=== PATIENT | female | born 1945 | race Caucasian/White ===

== ENCOUNTER 2019-04-15 13:36 | Inpatient (IN) | payer MEDICARE ==
[~2019-04-15] VITALS: Ht 167.6 cm; Wt 56.7 kg
[2019-04-15] MEDS: ALBUTEROL SULF 0.083% NEB SOLN 3 ML NEB NEB SCH ×2 (00:45→19:00)
[2019-04-15] MEDS ORDERED: ALBUTEROL/IPRATROPIUM 3 ML NEB NEB ONE (14:15)
[2019-04-15] MEDS ORDERED: ALBUTEROL/IPRATROPIUM 3 ML NEB NEB PRN (14:15)
[2019-04-15 14:22] LABS: BASOPHILS # (AUTO) 0.1 (0.0-0.1); BASOPHILS % 0.2 % (0.0-1.0); HEMATOCRIT 33.1 % (34.2-44.1); HEMOGLOBIN 11.2 g/dL (12.0-16.0); LYMPHOCYTES # (AUTO) 2.5 (1.0-3.2); MEAN CORPUSCULAR HEMOGLOBIN 30.4 pg (28-32); MEAN CORPUSCULAR HGB CONC 33.8 g/dL (31-35); MEAN CORPUSCULAR VOLUME 89.7 fL (81-99); MONOCYTES # (AUTO) 1.6 (0.2-0.8); MONOCYTES % 6.6 % (4.4-11.3); NEUTROPHILS # (AUTO) 20.6 (2.1-6.9); NEUTROPHILS % 82.4 % (38.7-80.0); PLATELET COUNT 526 x10e3/uL (140-360); RED BLOOD COUNT 3.69 x10e6/uL (3.6-5.1)
[2019-04-15] MEDS ORDERED: LEVALBUTEROL HCL SOLN NEBU 1.25 MG/3 ML NEB ONE (14:25)
[2019-04-15] MEDS ORDERED: IPRATROPIUM BROMIDE 0.02% 2.5 ML NEB ONE (14:26)
[2019-04-15 14:27] LABS: INR 1.01; PARTIAL THROMBOPLASTIN TIME 39.7 seconds (23.8-35.5); PROTHROMBIN TIME 13.8 seconds (11.9-14.5)
[2019-04-15] MEDS ORDERED: IPRATROPIUM BROMIDE 0.02% 2.5 ML NEB NEB NR (14:30)
[2019-04-15 14:35] LABS: ALANINE AMINOTRANSFERASE 12 IU/L (0-55); ALBUMIN 2.2 g/dL (3.5-5.0); ALBUMIN/GLOBULIN RATIO 0.4 (0.8-2.0); ALKALINE PHOSPHATASE 117 IU/L (40-150); ANION GAP 12.8 mmol/L (8-16); BLOOD UREA NITROGEN 10 mg/dL (7-26); BUN/CREATININE RATIO 15 (6-25); CALCIUM 10.1 mg/dL (8.4-10.2); CARBON DIOXIDE 30 mmol/L (22-29); CHLORIDE 94 mmol/L (98-107); CREATINE KINASE 94 IU/L (29-168); CREATININE, SERUM 0.65 mg/dL (0.57-1.11); EST GLOMERULAR FILTRATION RATE > 60 ML/MIN (60-); GLUCOSE 125 mg/dL (74-118); POTASSIUM 3.8 mmol/L (3.5-5.1); SODIUM 133 mmol/L (136-145)
[2019-04-15] MEDS ORDERED: LEVALBUTEROL HCL SOLN NEBU 0.63 MG/3 ML NEB INH ONE (15:00)
--- NOTE | 2019-04-15 15:52 | Diagnostic Imaging Report ---
EXAMINATION: CHEST SINGLE (PORTABLE) INDICATION: Shortness of breath. COMPARISON: None FINDINGS: TUBES and LINES: None. LUNGS/PLEURA Lungs are mildly hyperinflated on left. There are large pleural based opacities on the right. Moderate right pleural effusion versus pleural thickening. There are interstitial opacities on the left. Patchy opacities in left lower lung. HEART AND MEDIASTINUM: The cardiomediastinal silhouette is unremarkable. There are atherosclerotic calcifications within the aorta. BONES AND SOFT TISSUES: No acute osseous abnormality. Bilateral breast implants. UPPER ABDOMEN: No free air under the diaphragm. IMPRESSION: Large right pleural-based opacities. This finding may be postsurgical, and correlation with history and prior imaging would be helpful. Possible moderate right pleural effusion. Chest CT is suggested for further evaluation. Interstitial and patchy opacities in the left lower lung may represent asymmetric edema or pneumonia. Signed by: Dr. Javier Segura MD on 04/15/2019 3:49 PM
[2019-04-15 16:09] LABS: ABG HCO3 28 mmol/L (23-28); ABG PCO2 40 mmHg (41-51); ABG PH 7.45 (7.31-7.41); ABG PO2 85 mmHg (80-105)
[2019-04-15] MEDS ORDERED: SODIUM CHLORIDE 0.9% 1000ML 1,000 ML IV ONE (16:45)
[2019-04-15] MEDS: CEFTAROLINE FOSAMIL ACETATE 600 MG in SODIUM CHLORIDE 0.9% 250ML 250 ML IV SCH (17:15)
[2019-04-15] MEDS: SODIUM CHLORIDE 0.9% 1000ML 1,000 ML IV SCH (18:12)
[2019-04-15] MEDS ORDERED: SODIUM CHLORIDE FLUSH 10 ML SYR INJ PRN (18:15)
[2019-04-15] MEDS ORDERED: ASPIRIN 81 MG CHEW TAB PO ONE (18:30)
--- OUTSIDE RECORDS SUMMARY | 2019-04-15 18:30 | XMS REPORT ---
Author Author [facility] Address Unknown Phone Unavailable Care Team Providers Care Gyro Compass Tester Name Role Phone Bel APARICIO Unavailable Unavailable Problems This patient has no known problems. Allergies, Adverse Reactions, Alerts This patient has no known allergies or adverse reactions. Medications This patient has no known medications. Results Test Description Test Time Test Comments Text Results Atomic Results Result Comments CHEST SINGLE (PORTABLE) 2019-04-15 15:42:00 [place] [id number] Patient Name: GRIFFIN WEST MR #: [id number] : 1945 Age/Sex: 74/F Req #: [id number] Adm Physician: Ordered by: RHONA APARICIO MD Report #: [id number] Location: ER Room/Bed: Procedure: [id number] DX/CHEST SINGLE (PORTABLE) Exam Date: 04/15/19 Exam Time: 1450 REPORT STATUS: Signed EXAMINATION: CHEST SINGLE (PORTABLE) IN DICATION: Shortness of breath. COMPARISON: None FINDINGS: TUBES and LINES: None. LUNGS/PLEURA Lungs are mildly hyperinflated on left. There are large pleural based opacities on the right. Moderate right pleural effusion versus pleural thickening. There are interstitial opacities on the left. Patchy opacities in left lower lung. HEART AND MEDIASTINUM: The cardiomediastinal silhouette is unremarkable. There are atherosclerotic calcifications within the aorta. BONES AND SOFT TISSUES: No acute osseous abnormality. Bilateral breast implants. UPPER ABDOMEN: No free air under the diaphragm. IMPRESSION: Large right pleural-based opacities. This finding may be postsurgical, and correlation with history and prior imaging would be helpful. Possible moderate right pleural effusion. Chest CT is suggested for further evaluation. Interstitial and patchy opacities in the left lower lung may represent asymmetric edema or pneumonia. Signed by: Dr. Miriam Salazar MD on 04/15/2019 3:49 PM Dictated By: MIRIAM SALAZAR MD [id number] Transcribed By: LUIS on 04/15/19 1544 COPY TO: RHONA APARICIO MD
[2019-04-15] MEDS ORDERED: LEVALBUTEROL HCL SOLN NEBU 0.63 MG/3 ML NEB INH SCH (19:00)
[2019-04-15] MEDS: ENOXAPARIN SOD INJ 40 MG/0.4 ML SYR SC SCH (19:00)
[2019-04-15] MEDS: LEVALBUTEROL HCL SOLN NEBU 0.63 MG/3 ML NEB INH SCH (19:25)
[2019-04-15 19:33] LABS: BILIRUBIN,URINE NEGATIVE (NEGATIVE); CLARITY,URINE SL CLOUDY (CLEAR); COLOR,URINE YELLOW (YELLOW); KETONES,URINE NEGATIVE (NEGATIVE); LEUKOCYTE ESTERASE ,URINE NEGATIVE (NEGATIVE); NITRITE,URINE NEGATIVE (NEGATIVE); PROTEIN,URINE DIPSTICK 2+ (NEGATIVE); URINE UROBILINOGEN 2 mg/dL (0.2 - 1)
[2019-04-15] MEDS ORDERED: LEVALBUTEROL HCL SOLN NEBU 0.63 MG/3 ML NEB INH PRN (19:45)
[2019-04-15] MEDS ORDERED: VANCOMYCIN 1GM/NS 250 ML 250 ML IV ONE (19:45)
[2019-04-15] MEDS: METHYLPREDNISOLONE SOD SUCC 40 MG/ML VIAL 1ML IV SCH ×2 (19:45→22:25)
[2019-04-15 19:47] LABS: BACTERIA,URINE MODERATE /HPF; MUCUS,URINE MODERATE (RARE)
[2019-04-15] MEDS ORDERED: AZITHROMYCIN 250MG/NS 100 ML 100 ML IV SCH (20:00)
[2019-04-15 21:30] VITALS: BP 98/47
--- NOTE | 2019-04-15 21:32 | Diagnostic Imaging Report ---
CT chest with enhancement CPT code: 99844 INDICATION: Possible empyema TECHNIQUE: 5 mm collimation axial images obtained from the thoracic inlet to the level of the diaphragm following uneventful administration of 100 cc of low osmolar, nonionic intravenous contrast. RADIATION DOSE: Total DLP: 511.38 mGy*cm Estimated effective dose: (DLP x 0.015 x size factor) mSv CTDIvol has been reviewed. It is below the limits set by the Radiation Protocol Committee (RPC). Dose reduction techniques used: Automated exposure control, adjustment of the mAs and/or kVp according to patient size, standardized low-dose protocol, and/or iterative reconstruction technique. Comparison: None. CHEST FINDINGS: Images are motion degraded. Lymph nodes: No enlarged axillary or subclavicular lymph nodes. Upper mediastinal lymph nodes measure up to 9 mm. Right paratracheal lymph node measures 1.2 x 1.2 cm. A precarinal lymph node measures 1.3 cm in short axis. Subcarinal lymph node measures 1.3 cm. A right hilar lymph node measures 2.3 x 1.8 cm.. Thyroid: Visualized portions are normal. Mediastinum: The aorta is tortuous with diffuse calcifications. The descending thoracic aorta measures 3.1 x 3.8 cm. The ascending aorta measures 3.2 cm. Main pulmonary artery measures 2.8 cm. Right pulmonary artery measures 2.7 cm. Left pulmonary artery measures 2.6 cm. There are no filling defects. The mediastinum is shifted to the right. No pericardial effusion. There is a small hiatal hernia. There is mucous in the proximal trachea along the right wall. Lungs: Right Lung: Emphysema. There is atelectasis of the upper lobe. The middle and lower lobes are almost completely collapsed. Large amount of soft tissue in the middle and lower lobe bronchi. Multiple low attenuating foci are in the collapsed lower lobe measuring up to 3.0 cm. These could represent fluid collections or soft tissue nodules. Left Lung: Emphysematous changes and compensatory hyperinflation. There is atelectasis of the posterior basal segment of the lower lobe. No soft tissue mass. Pleura:Loculated right pleural effusion tracks along the lateral chest with enhancement of the visceral and parietal pleura. In largest transverse dimension, it measures 4 cm and extends for 15 cm in craniocaudal dimension. There is no evidence of air. No left pleural effusion. No pneumothorax. ABDOMEN: Visualized portions of the upper abdomen demonstrate no evidence of lymphadenopathy. Tiny low attenuating lesions in the upper pole the left kidney are too small to characterize but are statistically cysts. Bones: No evidence of lytic or blastic lesion. Soft tissues: Calcified bilateral breast prostheses. IMPRESSION: 1. Loculated right pleural effusion with enhancement of the visceral and parietal pleura suggestive of empyema in the appropriate clinical setting. Mediastinal and right hilar lymphadenopathy may be reactive. These should be closely monitored to exclude a malignant process. 2. Near complete atelectasis of the middle and lower lobes with soft tissue occlusion of the middle and lower lobe bronchi. This may represent mucous or endobronchial tumor. Recommend evaluation with bronchoscopy. Low attenuating foci within the atelectatic right lower lobe may be secondary to infection or neoplasm. 3. Emphysema. 4. Small hiatal hernia. 5. Tortuous aorta. Prominent pulmonary arteries suggestive of pulmonary artery hypertension. Signed by: Dr. Reginald Wills MD on 04/15/2019 9:28 PM
[2019-04-15 21:45] VITALS: BP 98/47
[2019-04-15 22:00] VITALS: BP 97/45
[2019-04-15 22:30] LABS: CREATINE KINASE 110 IU/L (29-168)
[2019-04-15] MEDS ORDERED: IOPAMIDOL 370 MG/ML 200 ML INFUS..BTL INJ ONE (22:45)
[2019-04-15] MEDS ORDERED: SODIUM CHLORIDE 0.9% 50ML 50 ML ONE (22:45)
[2019-04-15 23:00] VITALS: BP 95/42
--- NOTE | 2019-04-15 23:10 | NUR ---
Spoke with Dr. Paige regarding patient condition, RR in 40s on bipap without overt anxiety. Orders received to call rapid response and intubate patient. Orders received. Charge nurse, Wendy LEA, informed.
[2019-04-15] MEDS ORDERED: ACETAMINOPHEN 1000 MG/100 ML IV PRN (23:45)
[2019-04-16] VITALS (24 sets, daily range): BP systolic 84–122; BP diastolic 46–70
[2019-04-16] MEDS: IPRATROPIUM BROMIDE 0.02% 2.5 ML NEB NEB SCH ×4 (00:45→20:00)
[2019-04-16] MEDS: LEVALBUTEROL HCL SOLN NEBU 0.63 MG/3 ML NEB INH SCH ×4 (00:45→20:00)
--- NOTE | 2019-04-16 01:03 | NUR ---
Rapid response called at 0103 per MD order for respiratory distress on the bipap. Patient intubated at 0110. Meds given per RR sheet. Family aware of patient situation and orders.
[2019-04-16] MEDS: FENTANYL CITRATE INJ 2,000 MCG in SODIUM CHLORIDE 0.9% 250ML 210 ML IV PRN ×4 (01:10→16:30)
--- NOTE | 2019-04-16 01:38 | Diagnostic Imaging Report ---
EXAMINATION: CHEST XRAY LINE PLACEMENT COMPARISON: CT chest 04/15/2019, chest x-ray 04/15/2019 INDICATION: ^S/P PICC LINE PLACEMENT AND INTUBATION DISCUSSION: Frontal view of the chest obtained at 0121 hours. The patient is slightly rotated. HEART AND MEDIASTINUM: The mediastinum is shifted to the right LINES: Endotracheal tube terminates approximately 3 cm above the michael. Right PICC line terminates in the mediastinum. LUNGS: Loculated right pleural effusion is redemonstrated. The left lung is hyperinflated consistent with emphysema. PLEURA: No evidence of pneumothorax BONES AND SOFT TISSUES: Stable with calcified breast prostheses. IMPRESSION: 1. Endotracheal tube as described above. 2. Right PICC line terminates in the mediastinum. A more exact location cannot be determined due to patient rotation and mediastinal shift. No pneumothorax. 3. Stable loculated right pleural effusion. Signed by: Dr. Reginald Wills MD on 04/16/2019 1:35 AM
[2019-04-16] MEDS ORDERED: METOPROLOL SUCC25 MG PO (02:40)
[2019-04-16] MEDS ORDERED: ALPRAZOLAM1 MG PO (02:40)
[2019-04-16] MEDS ORDERED: CENTRUM SILVER1 EAC3 PO (02:47)
[2019-04-16] MEDS ORDERED: ALBUTEROL0.63 MG/3 INH (02:47)
[2019-04-16] MEDS ORDERED: NAMENDA10 MG PO (02:47)
[2019-04-16] MEDS ORDERED: ASPIR 8181 MG PO (02:47)
[2019-04-16] MEDS ORDERED: ATORVASTATIN CA10 MG PO (02:47)
[2019-04-16] MEDS ORDERED: CILOSTAZOL100 MG PO (02:47)
--- NOTE | 2019-04-16 02:52 | Consultation ---
DATE OF CONSULTATION: 04/15/2019 Pulmonary Consultation REASON FOR THE CONSULT: Respiratory failure. HISTORY OF PRESENT ILLNESS: Ms. Hart is a 74-year-old female with dementia, regular patient of Dr. Jin Navarro, came in with worsening shortness of breath. She has COPD and chronic hypoxic respiratory failure. She is on home oxygen. She has a history of breast implant and hernia surgery. She lives at home with her . She was brought into the ER with complaints of worsening shortness of breath. She had a chest x-ray done on May of 2018, which showed large bullous emphysema in the right upper lobe. She still smokes, have been a smoker for 54 years. She denies any chest pain, nausea, or vomiting. She is on BiPAP right now. REVIEW OF SYSTEMS: GENERAL: Denies any fever or chills. HEAD: Denies any head trauma. ENT: Denies any earache. Review of systems unable to elicit a detailed review of system because of her dementia. PAST MEDICAL HISTORY: Hypertension, COPD, dementia, and history of breast implants. FAMILY AND SOCIAL HISTORY: She is a smoker. She lives with her . She has dementia. PHYSICAL EXAMINATION: VITAL SIGNS: Temperature 101.0, pulse of 120, blood pressure 103/55, respiratory rate of 18, O2 saturation 95% on BiPAP 40%. HEENT: Head is atraumatic and normocephalic. Oral mucosa is dry with poor dentition. NECK: Supple. CHEST: Noted markedly reduced air entry bilaterally. BREAST: She has bilateral breast implants and seems like that the right breast implant is probably displaced. ABDOMEN: Soft and nontender. EXTREMITIES: No pedal edema. NEUROLOGIC: Awake and alert, but incoherent and unable to carry out any conversation. LABORATORY DATA: Sodium 133, potassium 3.8, BUN 10, and creatinine 0.65. White count of 24,000 and hemoglobin 11.2. INR is 1.01. Blood gas; pH of 7.45, pCO2 of 40, and pO2 of 85. ASSESSMENT: Ms. Hart is a 74-year-old female. She presented to the emergency room with worsening shortness of breath likely chronic obstructive pulmonary disease exacerbation versus pneumonia. The mass, which is visible on the chest x-ray is likely the implant. Current problem: 1. Chronic obstructive pulmonary disease exacerbation. 2. Acute on chronic hypoxic respiratory failure. 3. Advanced dementia. 4. Pneumonia. 5. Tachycardia. PLAN: 1. I will continue the patient on BiPAP. BiPAP setting reviewed. 2. Agree with ceftaroline fosamil IV antibiotics for coverage of pneumonia. I will add azithromycin. 3. I will start the patient on IV steroids for COPD exacerbation. 4. Transferred the patient to ICU. 5. Lovenox subcu for DVT prophylaxis. 6. Check UA, urine culture, and blood cultures. 7. Nebulizer treatment q.6 hourly. Detailed discussion was carried out with the patient's and son at bedside about the end of life care and they want everything all measures done for her and she is full code. Critical care time spent 50 minutes. MD CIERA Doan/ÁNGEL /[id number]
[2019-04-16] MEDS ORDERED: AZITHROMYCIN 500MG/NS 250 ML 250 ML ONE (03:07)
[2019-04-16] MEDS: ALBUTEROL SULF 0.083% NEB SOLN 3 ML NEB NEB SCH ×2 (03:17→07:00)
[2019-04-16] MEDS: METHYLPREDNISOLONE SOD SUCC 40 MG/ML VIAL 1ML IV SCH ×3 (05:24→21:34)
[2019-04-16] MEDS: CEFTAROLINE FOSAMIL ACETATE 600 MG in SODIUM CHLORIDE 0.9% 250ML 250 ML IV SCH (05:24)
[2019-04-16] MEDS: SODIUM CHLORIDE 0.9% 1000ML 1,000 ML IV SCH ×2 (05:24→16:51)
[2019-04-16 05:32] LABS: BASOPHILS % 0.1 % (0.0-1.0); HEMATOCRIT 26.8 % (34.2-44.1); HEMOGLOBIN 8.8 g/dL (12.0-16.0); LYMPHOCYTES # (AUTO) 1.2 (1.0-3.2); LYMPHOCYTES % 6.6 % (18.0-39.1); MEAN CORPUSCULAR HEMOGLOBIN 29.7 pg (28-32); MEAN CORPUSCULAR HGB CONC 32.8 g/dL (31-35); MEAN CORPUSCULAR VOLUME 90.5 fL (81-99); MONOCYTES # (AUTO) 0.5 (0.2-0.8); MONOCYTES % 2.8 % (4.4-11.3); NEUTROPHILS # (AUTO) 15.8 (2.1-6.9); NEUTROPHILS % 89.5 % (38.7-80.0); PLATELET COUNT 455 x10e3/uL (140-360); RED BLOOD COUNT 2.96 x10e6/uL (3.6-5.1); RED CELL DISTRIBUTION WIDTH 13.2 % (11.7-14.4)
[2019-04-16 05:36] LABS: ABG PH 7.45 (7.31-7.41)
[2019-04-16 05:37] LABS: ABG HCO3 27 mmol/L (23-28); ABG PCO2 40 mmHg (41-51); ABG PO2 84 mmHg (80-105)
[2019-04-16 05:41] LABS: ABG HCO3 27 mmol/L (23-28); ABG PCO2 39 mmHg (41-51); ABG PH 7.45 (7.31-7.41); ABG PO2 99 mmHg (80-105)
[2019-04-16 05:48] LABS: ANION GAP 12.3 mmol/L (8-16); BLOOD UREA NITROGEN 11 mg/dL (7-26); BUN/CREATININE RATIO 18 (6-25); CALCIUM 8.7 mg/dL (8.4-10.2); CARBON DIOXIDE 26 mmol/L (22-29); CHLORIDE 98 mmol/L (98-107); CREATININE, SERUM 0.62 mg/dL (0.57-1.11); EST GLOMERULAR FILTRATION RATE > 60 ML/MIN (60-); GLUCOSE 130 mg/dL (74-118); POTASSIUM 4.3 mmol/L (3.5-5.1); SODIUM 132 mmol/L (136-145)
[2019-04-16 05:56] LABS: CREATINE KINASE MB 1.9 ng/mL (0-5.0)
--- NOTE | 2019-04-16 06:02 | Diagnostic Imaging Report ---
Abdomen/KUB INDICATION: Tube placement ^OGT PLACEMENT ^[id number] ^0520 COMPARISON: Chest x-ray 0121 hours. FINDINGS: Portable, supine image obtained at 0531 hours. Medical Devices: Enteric tube extends past the diaphragm with the sidehole just past the GE junction. Surgical clips in the upper pelvis. Bowel: Unremarkable bowel gas pattern. No dilated bowel loops. No pneumatosis. Free air: None Calcifications: None. There is excreted contrast in the renal collecting systems from recent CT. Organomegaly: None Lung bases: Loculated right pleural effusion and right lower and middle lobe atelectasis are stable. Hyperinflation of the left lung suggestive of emphysema. Bones: Unremarkable Soft tissues: Stable calcified breast prostheses. IMPRESSION: 1. Enteric tube as described above. Recommend advancement 5 to 10 cm to ensure sidehole placement within the stomach. 2. Visualized portions of the chest are stable. Signed by: Dr. Reginald Wills MD on 04/16/2019 5:59 AM
--- NOTE | 2019-04-16 06:05 | Diagnostic Imaging Report ---
EXAMINATION: CHEST SINGLE (PORTABLE) COMPARISON: Chest x-ray 0121 hours INDICATION: Intubated ^PNEUMONIA ^[id number] ^0520 ^Y DISCUSSION: Frontal view of the chest obtained at 0531 hours. HEART AND MEDIASTINUM: Shifting of the mediastinum to the right is redemonstrated. LINES: Endotracheal tube terminates 4 cm above the michael. Right PICC line terminates in the SVC. Enteric tube extends past the diaphragm. LUNGS: Diffuse hyperinflation of the left lung is stable consistent with emphysema. There is subtotal atelectasis of the right lung, similar to previous exam. PLEURA: Loculated right pleural effusion is stable. No evidence of left pleural effusion. No pneumothorax. BONES AND SOFT TISSUES: No focal osseous lesion. Stable calcified breast prostheses. IMPRESSION: 1. Support devices as described above. 2. Stable loculated right pleural effusion and rightward mediastinal shift. Signed by: Dr. Reginald Wills MD on 04/16/2019 6:02 AM
--- NOTE | 2019-04-16 06:06 | NUR ---
Post intubation ABGs read to Dr. Paige. No new orders or vent setting changes received.
[2019-04-16] MEDS ORDERED: PANTOPRAZOLE INJ 40 MG in SODIUM CHLORIDE 0.9% 50ML 50 ML IV SCH ×4 (07:15)
--- NOTE | 2019-04-16 08:02 | History and Physical ---
REASON FOR ADMISSION: The patient is a 74-year-old female comes in with acute shortness of breath, history of chronic obstructive pulmonary disorder, and also was found to have pneumonia. HISTORY OF PRESENTING ILLNESS: Ms. Ramirez, who is a 74-year-old female with a history of COPD, stop smoking on Mother's Day, until then, she has been smoking about 2-3 cigarettes a day. Prior to this, the patient was one-pack per day. The patient noted that she had a fever and was given Z-Eladio on the . The patient's fever and congestion subsided after one week of treatment. However, the patient did still get weak and also increased shortness of breath and increased dyspnea on exertion. The patient was sent to the emergency room from the clinic and was found to have pneumonia, admitted for the same. PAST MEDICAL HISTORY: History of anxiety, history of hypertension, history of peripheral arterial disease, history of early dementia, history of COPD, and hyperlipidemia. MEDICINES: She takes at home alprazolam 2 mg per day, metoprolol 25 mg per day, cilostazol 100 mg two tablets per day, aspirin 81 mg per, Namenda 10 mg two tablets per day, albuterol inhalations as needed, and atorvastatin 10 mg one tablet every day. The patient's immunizations have been up-to-date. SOCIAL HISTORY: History of smoking as noted and also no EtOH, no IV drug abuse. REVIEW OF SYSTEMS: Negative for chest pain. Positive for shortness of breath. Positive for some nausea. No vomiting. No diarrhea. No constipation. No rectal bleeding. Positive for fever. Positive for weakness and positive for sore throat too. No diplopia. No blurry vision. Positive for memory problems and memory lapses too. FAMILY HISTORY: The patient has significant essential hypertension according to the . ALLERGIES: ACETAMINOPHEN, CODEINE, AND HYDROCODONE. PHYSICAL EXAMINATION: GENERAL: The patient is alert and oriented x3. VITAL SIGNS: Temperature is 97.4, pulse of 101, blood pressure is 90/57, pulse oximeter of 99%, O2 mechanical ventilator. HEENT: Normocephalic, atraumatic. The patient is intubated. CVS: S1, S2. Tachy. ABDOMEN: Nontender and nondistended. LUNGS: Positive for rhonchi in bilateral sides. Positive for bilateral inspiratory wheezing too. EXTREMITIES: No clubbing, no cyanosis, no edema. IMAGING DATA: Initial chest CT shows loculated right pleural effusion with enhancement of the visceral pleura suggestive of empyema, near complete atelectasis of the middle and lower lobes of the soft tissue, occlusion of the middle and lower bronchus, may represent mucus and tracheal tumor. Emphysema and small hiatal hernia. Torturous aorta. LABORATORY VALUES: Initial white count was 24,000, come down to 17,000, hemoglobin of 11.2 down to 8.8, hematocrit of 33.1, back down to 26.8. Left shift still present. Chemistry; sodium of 133, potassium 3.8, BUN of 10, creatinine 0.65, glucose of 125. Troponins have been trended to be negative. ASSESSMENT: 1. Empyema. 2. Chronic obstructive pulmonary disease exacerbation. 3. Hypertension. 4. History of anxiety. 5. History of dementia. 6. Acute sepsis. 7. Encephalopathy secondary to infectious processes. PLAN: To continue the patient on antibiotic. The patient is intubated yesterday last night secondary to respiratory distress for acute respiratory failure. Continue monitoring the patient. The patient has moderate amount of thrombocytosis, leukocytosis, and also left shift with sepsis. Again, IV fluids, hydration, antibiotics, Solu-Medrol for treatment for COPD. Continue to monitor the patient. The patient is critically sick. Pulmonary consult, Dr. Navarro has been done. The patient has been intubated. May need bronchial washing. Will depend on Pulmonology. Further recommendation per clinical course. Deep venous thrombosis prophylaxis also been administered by Lovenox. We will start also on GI prophylaxis and SCDs have been instituted. Discussed the case with , who is the power of finance attorney. Further recommendation per clinical course. MD RICHIE LearyJ/MODL /[id number]
[2019-04-16] MEDS ORDERED: VANCOMYCIN 1GM/NS 250 ML 250 ML IV SCH ×2 (09:30→11:30)
--- NOTE | 2019-04-16 11:05 | NUR ---
REASON FOR ADMISSION: The patient is a 74-year-old female comes in with acute shortness of breath, history of chronic obstructive pulmonary disorder, and also was found to have pneumonia. HISTORY OF PRESENTING ILLNESS: Ms. Ramirez, who is a 74-year-old female with a history of COPD, stop smoking on Mother's Day, until then, she has been smoking about 2-3 cigarettes a day. Prior to this, the patient was one-pack per day. The patient noted that she had a fever and was given Z-Eladio on the . The patient's fever and congestion subsided after one week of treatment. However, the patient did still get weak and also increased shortness of breath and increased dyspnea on exertion. The patient was sent to the emergency room from the clinic and was found to have pneumonia, admitted for the same. PAST MEDICAL HISTORY: History of anxiety, history of hypertension, history of peripheral arterial disease, history of early dementia, history of COPD, and hyperlipidemia. MEDICINES: She takes at home alprazolam 2 mg per day, metoprolol 25 mg per day, cilostazol 100 mg two tablets per day, aspirin 81 mg per, Namenda 10 mg two tablets per day, albuterol inhalations as needed, and atorvastatin 10 mg one tablet every day. The patient's immunizations have been up-to-date. SOCIAL HISTORY: History of smoking as noted and also no EtOH, no IV drug abuse. REVIEW OF SYSTEMS: Negative for chest pain. Positive for shortness of breath. Positive for some nausea. No vomiting. No diarrhea. No constipation. No rectal bleeding. Positive for fever. Positive for weakness and positive for sore throat too. No diplopia. No blurry vision. Positive for memory problems and memory lapses too. FAMILY HISTORY: The patient has significant essential hypertension according to the . ALLERGIES: ACETAMINOPHEN, CODEINE, AND HYDROCODONE. PHYSICAL EXAMINATION: GENERAL: The patient is alert and oriented x3. VITAL SIGNS: Temperature is 97.4, pulse of 101, blood pressure is 90/57, pulse oximeter of 99%, O2 mechanical ventilator. HEENT: Normocephalic, atraumatic. The patient is intubated. CVS: S1, S2. Tachy. ABDOMEN: Nontender and nondistended. LUNGS: Positive for rhonchi in bilateral sides. Positive for bilateral inspiratory wheezing too. EXTREMITIES: No clubbing, no cyanosis, no edema. IMAGING DATA: Initial chest CT shows loculated right pleural effusion with enhancement of the visceral pleura suggestive of empyema, near complete atelectasis of the middle and lower lobes of the soft tissue, occlusion of the middle and lower bronchus, may represent mucus and tracheal tumor. Emphysema and small hiatal hernia. Torturous aorta. LABORATORY VALUES: Initial white count was 24,000, come down to 17,000, hemoglobin of 11.2 down to 8.8, hematocrit of 33.1, back down to 26.8. Left shift still present. Chemistry; sodium of 133, potassium 3.8, BUN of 10, creatinine 0.65, glucose of 125. Troponins have been trended to be negative. ASSESSMENT: 1. Empyema. 2. Chronic obstructive pulmonary disease exacerbation. 3. Hypertension. 4. History of anxiety. 5. History of dementia. 6. Acute sepsis. 7. Encephalopathy secondary to infectious processes. dictated
--- NOTE | 2019-04-16 11:13 | NUR ---
confirmed by spouse pt is not allergic to Acetaminophen. Medication removed from allergy list
[2019-04-16] MEDS: PANTOPRAZOL 40MG/SOD CHL 0.9% 50 ML IV SCH ×3 (12:22→21:37)
[2019-04-16] MEDS: PIPER-TAZ 3.375 GM 50 ML IV SCH ×2 (12:22→17:00)
[2019-04-16 14:44] LABS: CREATINE KINASE MB 1.6 ng/mL (0-5.0)
[2019-04-16] MEDS: ENOXAPARIN SOD INJ 40 MG/0.4 ML SYR SC SCH (16:51)
--- NOTE | 2019-04-16 19:20 | Consultation ---
DATE OF CONSULTATION: 04/16/2019 REASON FOR CONSULTATION: Pneumonia. HISTORY OF PRESENT ILLNESS: This patient who apparently is very pleasant 74-year-old white female, who has been sick for 3 weeks according to her with some shortness of breath and cough. Apparently, the patient Dr. Navarro. She does have underlying history of COPD, history of chronic hypoxic respiratory failure, history of dementia, bilateral breast implant done 40 years ago, hernia surgery. She lives with her , bedbound because of her dementia. Apparently, last 3 weeks, she has been having some shortness of breath and cough. She took Z-Eladio initially and the thought she was getting better, but then she became more shortness of breath, so she transferred here. Here, she had to be intubated. I am asked to see her. The patient currently does not provide meaningful information. PAST MEDICAL HISTORY: COPD, dementia, breast implant, hypertension. PAST SURGICAL HISTORY: Breast implant, bilateral. ALLERGIES: NKA. SOCIAL HISTORY: smoker. Lives with her . REVIEW OF SYSTEMS: Could not be obtained except what was mentioned above. Her at the bedside. Her son at the bedside. The case was discussed with both of them also with the nursing team. LABORATORY DATA: On admission; white count , hemoglobin 11.2, hematocrit 33. Sodium 132, potassium 4.3, and creatinine 0.62. Liver enzyme within normal limit. CAT scan was done showed loculated right pleural effusion with enhancement. There is also mediastinal and right hilar lymphadenopathy. PHYSICAL EXAMINATION: GENERAL: She is intubated and sedated. VITAL SIGNS: Stable. T-max 101.1. HEENT: . NECK: Supple. No lymphadenopathy. CHEST: Few crackles. COR: S1, S2. No murmur. ABDOMEN: Soft. Bowel sounds present. No tenderness. EXTREMITIES: No edema. SKIN: No rash. IMPRESSION: 1. Pneumonia. Concerned about empyema, concerned about malignancy, concerned about postobstructive pneumonia versus aspiration pneumonia in a patient, who is coming from the community. We will treat for aspiration pneumonia. We will start her on vancomycin and Zosyn. Consider ultrasound-guided thoracocentesis status post cell count and diff, protein, glucose. We will discuss with Pulmonary. We will need to follow up on the imaging until total resolution. We will try to induce sputum for culture and sensitivity. Continue to follow CBC and chemistry panel. We will follow. MD MISHA Reaves/ÁNGEL /[id number]
[2019-04-16] MEDS: VANCOMYCIN 1GM/NS 250 ML 250 ML IV SCH (21:34)
[2019-04-17] VITALS (25 sets, daily range): BP systolic 114–162; BP diastolic 57–110
[2019-04-17] MEDS: IPRATROPIUM BROMIDE 0.02% 2.5 ML NEB NEB SCH ×4 (00:30→19:30)
[2019-04-17] MEDS: LEVALBUTEROL HCL SOLN NEBU 0.63 MG/3 ML NEB INH SCH ×4 (00:30→19:30)
[2019-04-17] MEDS: PIPER-TAZ 3.375 GM 50 ML IV SCH ×4 (00:39→18:45)
[2019-04-17] MEDS: PANTOPRAZOL 40MG/SOD CHL 0.9% 50 ML IV SCH ×4 (02:56→15:27)
[2019-04-17 05:31] LABS: INR 1.1; PROTHROMBIN TIME 14.7 seconds (11.9-14.5)
[2019-04-17 05:32] LABS: PARTIAL THROMBOPLASTIN TIME 35.2 seconds (23.8-35.5)
[2019-04-17] MEDS: METHYLPREDNISOLONE SOD SUCC 40 MG/ML VIAL 1ML IV SCH ×2 (05:34→18:45)
[2019-04-17 05:40] LABS: BASOPHILS % 0.1 % (0.0-1.0); HEMOGLOBIN 8.2 g/dL (12.0-16.0); LYMPHOCYTES # (AUTO) 1.4 (1.0-3.2); LYMPHOCYTES % 9.5 % (18.0-39.1); MEAN CORPUSCULAR HEMOGLOBIN 29.9 pg (28-32); MEAN CORPUSCULAR HGB CONC 32.8 g/dL (31-35); MEAN CORPUSCULAR VOLUME 91.2 fL (81-99); MONOCYTES # (AUTO) 0.6 (0.2-0.8); MONOCYTES % 4.3 % (4.4-11.3); NEUTROPHILS # (AUTO) 12.6 (2.1-6.9); NEUTROPHILS % 85.2 % (38.7-80.0); PLATELET COUNT 456 x10e3/uL (140-360); RED BLOOD COUNT 2.74 x10e6/uL (3.6-5.1); RED CELL DISTRIBUTION WIDTH 13.2 % (11.7-14.4)
[2019-04-17 05:45] LABS: ALANINE AMINOTRANSFERASE 11 IU/L (0-55); ALBUMIN 1.7 g/dL (3.5-5.0); ALBUMIN/GLOBULIN RATIO 0.4 (0.8-2.0); ALKALINE PHOSPHATASE 84 IU/L (40-150); ANION GAP 10.6 mmol/L (8-16); BLOOD UREA NITROGEN 15 mg/dL (7-26); BUN/CREATININE RATIO 23 (6-25); CALCIUM 8.8 mg/dL (8.4-10.2); CARBON DIOXIDE 25 mmol/L (22-29); CHLORIDE 105 mmol/L (98-107); CREATININE, SERUM 0.66 mg/dL (0.57-1.11); EST GLOMERULAR FILTRATION RATE > 60 ML/MIN (60-); GLUCOSE 108 mg/dL (74-118); MAGNESIUM 1.9 MG/DL (1.3-2.1); POTASSIUM 3.6 mmol/L (3.5-5.1); SODIUM 137 mmol/L (136-145)
--- NOTE | 2019-04-17 06:08 | Diagnostic Imaging Report ---
EXAMINATION: CHEST SINGLE (PORTABLE) COMPARISON: Chest x-ray 04/16/2019 INDICATION: Intubated ^Pneumonia/Chest tube insertion ^Y DISCUSSION: Frontal view of the chest obtained at 0530 hours. HEART AND MEDIASTINUM: Stable shifting of the mediastinum to the right. LINES: Endotracheal tube terminates approximately 5 to 6 cm above the michael. Right PICC line terminates in the SVC. Enteric tube extends past the diaphragm. LUNGS: No change in loculated right pleural effusion. Left lung is hyperinflated but clear. Airspace opacities in the base of the left lung have diminished. BONES AND SOFT TISSUES: No focal osseous lesion. Stable calcified breast prostheses. IMPRESSION: 1. Support devices as described above. 2. Stable loculated right pleural effusion. Improved airspace opacities in the base of the left lung. Signed by: Dr. Reginald Wills MD on 04/17/2019 6:05 AM
[2019-04-17] MEDS ORDERED: FUROSEMIDE INJ 10 MG/ML 2 ML VIAL IV ONE (07:00)
[2019-04-17] MEDS ORDERED: FUROSEMIDE INJ 10 MG/ML 2 ML VIAL ONE (07:00)
--- NOTE | 2019-04-17 07:12 | NUR ---
Dr. Stephenie Grey paged for new pt consult for chest tube placement
[2019-04-17] MEDS: SODIUM CHLORIDE 0.9% 1000ML 1,000 ML IV SCH ×3 (07:32→20:12)
--- NOTE | 2019-04-17 10:09 | Progress Note ---
DATE: 04/17/2019 SUBJECTIVE: The patient is a 74-year-old female, who comes in with acute COPD exacerbation, pneumonia, empyema, and respiratory failure. Currently, patient is intubated. MEDICATIONS: Lovenox, Ipratropium bromide, levalbuterol, Solu-Medrol, pantoprazole, Zosyn and vancomycin. The patient is also on fluids 100 liters with 900 mL/h on normal saline. PHYSICAL EXAMINATION: VITAL SIGNS: Temperature is 85, respiration of 14, mechanical ventilator. Blood pressure is 114/57. HEENT: The patient is intubated. CVS: S1, S2. Regular rate and rhythm. ABDOMEN: Nontender and nondistended. EXTREMITIES: No clubbing, no cyanosis, no edema. LABORATORY VALUES: White count has down to 14,000, hemoglobin of 8.2, hematocrit of 25.0, left shift present. The patient's Coags are within normal limits. Chemistries; sodium is 137, potassium 3.6, BUN of 15, and creatinine 0.66. ASSESSMENT: 1. Acute pneumonia. 2. Empyema. PLAN: 1. To do a chest tube today. 2. Leukocytosis with sepsis. Continue with antibiotics. Encephalopathy, toxic. We will continue monitoring the patient's mental status. 3. Low urine output. Lasix 20 mg to challenge urine output. 4. Hydration, continue with fluids. The patient is n.p.o. at this time. 5. We will continue monitoring the patient's respiratory status, wean her off after chest tube insertion. Further recommendation per clinical course. Consult is on board. ID and Pulmonary. We will probably need a surgical consult for the chest tube insertion. 6. Further recommendation per clinical course. We will continue to monitor the patient. Labs will be done. Patient also has anemia, probably secondary to dilutional effect. We will monitor the CBC on a daily basis. MD JIAN Leary/MODL /[id number]
[2019-04-17] MEDS ORDERED: ETOMIDATE 40 MG/ 20ML VIAL IV ONE (12:47)
[2019-04-17] MEDS ORDERED: SUCCINYLCHOLINE CHLORIDE 20 MG/ML 10ML VIAL ONE (12:47)
[2019-04-17] MEDS: FENTANYL CITRATE INJ 2,000 MCG in SODIUM CHLORIDE 0.9% 250ML 210 ML IV PRN ×3 (13:28→23:25)
--- NOTE | 2019-04-17 14:12 | NUR ---
Nutrition Intervention Note RD Recommendation(s) for Physician: -When medically appropriate, rec to initiate continuous TF with Vital AF 1.2 @10mL/hr, advance as tolerated, to goal rate of 45mL/hr (1296kcal, 81g protein, 876mL water) -Rec water flushes of 50mL q 4hr; additional per MD discretion -Check daily labs, GI tolerance, weight Plan of Care: RD following, monitoring for tolerance and adequacy, TF rec Nutrition reason for involvement: Nutrition Risk Trigger MST RD Assessment 04/17: 74yo F, who was admitted for PNA. Visited pt in the room. IVF @100mL/hr; Fentanyl. 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 In the last 2 weeks, noticed that pt was choking on foods several times while eating too fast. On her last doctors visit in February 2019, pt weighted at 119lbs; no recent weight loss noted. At home, pt was bedbound and required O2 24/7. Per RN Joseline, planned for chest tube placement today and bronchoscopy tomorrow. TF will not be started until the procedures were done. Will continue to monitor and follow. Principal Problems/Diagnoses: 1. Acute pneumonia. 2. Empyema. PMH: dementia, borderline DM(per , no taking any meds), anxiety, HTN, PAD, COPD, HLD GI: abdomen soft, non-tender, flatus present Skin: no pressure wound noted Labs: (04/17) reviewed Meds: protonix, fentanyl Ht: 65in (verified with ) Wt: 128lbs BMI: 21.3kg/m2 IBW: 125lb Malnutrition Evaluation (04/17) The patient does not meet criteria for a specified degree of malnutrition at this time. Will re-evaluate at follow-up as appropriate. Nutrition Prescription (Diet Order): NPO Estimated Nutritional Needs: Calories: 1160 1450kcal (20-25kcal/kg/d) Weight used: CBW Protein: 75 116g (1.3-2g/kg/d) Weight used: CBW Diet Adequacy: Not meeting calorie needs, Not meeting protein needs Diet Education Needs Assessment: Diet education not indicated. Nutrition Care Level: mod Nutrition Diagnosis: Inadequate energy intake related to current medical status as evidenced by pt requiring EN as main source of nutrition. Goal: Patient will meet 75-100% of estimated needs by follow up Progress: N/A Interventions: Composition, Rate, Route Monitoring/Evaluation: Total energy intake, Total protein intake, Formula/Solution, Weight change, Gastric tolerance, labs Signed: Aspen Mccormack MS, RD, LD
[2019-04-17] MEDS: VANCOMYCIN 1GM/NS 250 ML 250 ML IV SCH (22:13)
[2019-04-18] VITALS (27 sets, daily range): BP systolic 78–170; BP diastolic 49–94
[2019-04-18] MEDS: PIPER-TAZ 3.375 GM 50 ML IV SCH ×4 (00:08→17:10)
[2019-04-18] MEDS: PANTOPRAZOL 40MG/SOD CHL 0.9% 50 ML IV SCH ×6 (00:08→21:38)
[2019-04-18] MEDS: IPRATROPIUM BROMIDE 0.02% 2.5 ML NEB NEB SCH ×4 (00:30→19:00)
[2019-04-18] MEDS: LEVALBUTEROL HCL SOLN NEBU 0.63 MG/3 ML NEB INH SCH ×4 (00:30→19:00)
[2019-04-18] MEDS: FENTANYL CITRATE INJ 2,000 MCG in SODIUM CHLORIDE 0.9% 250ML 210 ML IV PRN ×2 (02:15→12:28)
--- NOTE | 2019-04-18 02:15 | NUR ---
New bag of fentanyl mixed by LEONORA Gannon. Double checked by LEONORA Edouard & LEONORA Boogie (Charge).
[2019-04-18 05:15] LABS: BASOPHILS % 0.1 % (0.0-1.0); HEMATOCRIT 27.4 % (34.2-44.1); HEMOGLOBIN 8.8 g/dL (12.0-16.0); LYMPHOCYTES # (AUTO) 1.5 (1.0-3.2); LYMPHOCYTES % 10.1 % (18.0-39.1); MEAN CORPUSCULAR HEMOGLOBIN 29.7 pg (28-32); MEAN CORPUSCULAR HGB CONC 32.1 g/dL (31-35); MEAN CORPUSCULAR VOLUME 92.6 fL (81-99); MONOCYTES # (AUTO) 0.9 (0.2-0.8); MONOCYTES % 5.9 % (4.4-11.3); NEUTROPHILS # (AUTO) 12.1 (2.1-6.9); NEUTROPHILS % 82.9 % (38.7-80.0); PLATELET COUNT 481 x10e3/uL (140-360); RED BLOOD COUNT 2.96 x10e6/uL (3.6-5.1); RED CELL DISTRIBUTION WIDTH 13.2 % (11.7-14.4)
[2019-04-18 05:40] LABS: ANION GAP 11.3 mmol/L (8-16); BLOOD UREA NITROGEN 17 mg/dL (7-26); BUN/CREATININE RATIO 25 (6-25); CALCIUM 8.5 mg/dL (8.4-10.2); CARBON DIOXIDE 25 mmol/L (22-29); CHLORIDE 110 mmol/L (98-107); CREATININE, SERUM 0.69 mg/dL (0.57-1.11); EST GLOMERULAR FILTRATION RATE > 60 ML/MIN (60-); GLUCOSE 86 mg/dL (74-118); POTASSIUM 3.3 mmol/L (3.5-5.1); SODIUM 143 mmol/L (136-145)
[2019-04-18] MEDS ORDERED: IOPAMIDOL 610MG/1ML 300 MG/ML VIAL IV ONE (06:24)
--- NOTE | 2019-04-18 07:03 | Diagnostic Imaging Report ---
EXAMINATION: CHEST SINGLE (PORTABLE) COMPARISON: Chest x-ray 04/17/2019 INDICATION: Tube placement ^intubated ^[id number] ^0559 DISCUSSION: Frontal view of the chest obtained at 0617 hours hours. HEART AND MEDIASTINUM: Rightward shifting of the mediastinum is stable. LINES: Right IJ catheter remains in the SVC. Enteric tube terminates terminates 3 to 4 cm above the michael. Enteric tube extends past the diaphragm. LUNGS: Volume loss of the right hemithorax is redemonstrated. Loculated right pleural effusion and underlying airspace opacities are stable. The left lung is diffusely hyperinflated and stable in appearance. PLEURA: No evidence of left pleural effusion or pneumothorax. BONES AND SOFT TISSUES: No focal osseous lesion. Soft tissues are stable. IMPRESSION: 1. Support devices as described above. 2. No change in loculated right pleural effusion and underlying atelectasis or infiltrate. Signed by: Dr. Reginald Wills MD on 04/18/2019 7:00 AM
--- NOTE | 2019-04-18 07:13 | Progress Note ---
DATE: 04/18/2019 SUBJECTIVE: The patient is here for loculated effusion pneumonia. Currently, the patient is on Solu-Medrol for COPD. Antibiotics include Zosyn and vancomycin. The patient is also on continuous IV fluid, is intubated for acute respiratory failure. The patient is due to have a thoracentesis yesterday with placement of large bore tube. The patient is scheduled for it at one o'clock today with bronchoscopy. OBJECTIVE: GENERAL: The patient is alert and oriented x3. VITAL SIGNS: Temperature is 98.5, pulse of 98, respirations 14, blood pressure is 142/70. HEENT: Intubated. CVS: S1, S2 normal. LUNGS: Positive for bilateral inspiratory wheezes, rhonchi present and also dullness present in the left side. LABORATORY VALUES: Today's white count of 14,000, hemoglobin of 8.8, hematocrit of 27.4, platelet count is 481, neutrophil count of 82.9. Chemistry shows sodium of 143, potassium 3.3, and chloride is 110. The patient's albumin is 1.7. Coags normal. IMAGING STUDIES: Chest x-ray from yesterday shows stable changes of the pleural effusion, stable and loculated. ASSESSMENT: Acute pneumonia, pleural effusion, question empyema. PLAN: Plan is to do a chest tube today possible bronchial wash. Leukocytosis with sepsis, toxic encephalopathy, resolving. The patient's urine output has picked up. Continue with hydration. We will monitor the patient in ICU. Consults on board. Further recommendation per clinical course. Labs will be done on a regular and daily basis. Addendum, the patient's by the bedside. We will continue updating him on progress of the patient. MD JIAN Leary/PATRICIAL /[id number]
[2019-04-18] MEDS ORDERED: ENOXAPARIN SOD INJ 40 MG/0.4 ML SYR SC SCH (08:00)
[2019-04-18] MEDS: METHYLPREDNISOLONE SOD SUCC 40 MG/ML VIAL 1ML IV SCH ×2 (08:06→17:10)
[2019-04-18] MEDS: SODIUM CHLORIDE 0.9% 1000ML 1,000 ML IV SCH ×3 (08:06→17:11)
[2019-04-18] MEDS ORDERED: POTASSIUM CHLORIDE 20MEQ/100ML 100 ML IV ONE (09:30)
[2019-04-18] MEDS ORDERED: PROPOFOL IV EMULSION 10MG/ML 100 ML IV ONE (13:00)
[2019-04-18] MEDS ORDERED: PROPOFOL IV EMULSION 10MG/ML 100 ML ONE (13:15)
[2019-04-18] MEDS ORDERED: MIDAZOLAM HCL 2 MG/2 ML VIAL ONE (13:16)
[2019-04-18] MEDS ORDERED: BUPIVACAINE 0.25%/EPI 30ML SDV INJ ONE (13:21)
[2019-04-18] MEDS ORDERED: EPINEPHRINE HCL 1:1000 1ML 1 MG/ML AMP ONE (13:21)
[2019-04-18] MEDS ORDERED: LIDOCAINE HCL 4% 50 ML BTL ONE (13:21)
[2019-04-18] MEDS ORDERED: LIDOCAINE HCL 1% LOCAL INJ 20 ML VIAL ONE (13:21)
[2019-04-18] MEDS ORDERED: MIDAZOLAM HCL 2 MG/2 ML VIAL IV ONE (13:30)
--- NOTE | 2019-04-18 13:30 | NUR ---
ASSISTED DR. CHAO AND DR. ABBOTT WITH BRONCHOSCOPY AND CHEST TUBE INSERTION. 60 MINUTES
[2019-04-18] MEDS ORDERED: ACETYLCYSTEINE 200 MG/ML 4ML VIAL ONE (13:38)
[2019-04-18] MEDS ORDERED: SODIUM CHLORIDE 0.9% 250ML 250 ML ONE (13:52)
[2019-04-18] MEDS ORDERED: ACETYLCYSTEINE 200 MG/ML 4ML VIAL INH SCH (14:15)
--- NOTE | 2019-04-18 14:43 | Diagnostic Imaging Report ---
Examination: Single AP view of the chest. COMPARISON: Earlier 04/18/2019 INDICATION: Post procedure DISCUSSION: Endotracheal tube, enteric tube, and right upper trauma depicted are stable in position. Interval placement of a large-bore right-sided chest tube, with the tip projecting over the right hilum. No definite pneumothorax. Improved aeration of the right upper lung. Left lung remains clear. IMPRESSION: Interval placement of a large-bore right chest tube with expected subcutaneous/chest wall gas and interval improvement in aeration of the right upper and midlung. Remaining support lines and tubes are stable. Signed by: Dr. Jin Mendoza M.D. on 04/18/2019 2:40 PM
[2019-04-18] MEDS ORDERED: NOREPINEPHRINE INJ 4MG/4ML 8 MG in DEXTROSE 5% 250ML 250 ML IV PRN (15:15)
[2019-04-18] MEDS: MIDAZOLAM HCL 25 MG in SODIUM CHLORIDE 0.9% 50ML 45 ML IV PRN ×4 (15:45→21:29)
--- NOTE | 2019-04-18 15:47 | NUR ---
ICU LOCULATED EMPYEMA VENTILATOR BRONCH TODAY
--- NOTE | 2019-04-18 16:10 | NUR ---
patient tolerated bedside procedures well. bronchoscopy completed by respiratory. ett exchanged to 7.5 by anesthesia. and chest tube placed by surgery. 250ml bolus given. pt doing well. calm and sedated. f/u cxr completed.
[2019-04-18 16:56] LABS: ABG HCO3 23 mmol/L (23-28); ABG PCO2 37 mmHg (41-51); ABG PO2 344 mmHg (80-105)
[2019-04-18] MEDS: NOREPINEPHRINE 8 MG/D5W 250 ML 250 ML IV PRN ×3 (17:02→22:11)
[2019-04-18 17:16] LABS: BODY FLUID APPEARANCE CLOUDY; BODY FLUID TYPE PLEURAL
[2019-04-18 17:23] LABS: RBC,BODY FLUID 69 cells/uL; WBC,BODY FLUID 1257 cells/uL
[2019-04-18 18:34] LABS: LYMPHOCYTES,BODY FLUID 16 %; MONO/MACROPHG,BODY FLUID 17 %; NEUTROPHILS,BODY FLUID 67 %
--- NOTE | 2019-04-18 21:21 | Operative Report ---
DATE OF PROCEDURE: 04/18/2019 SURGEON: Jin Navarro MD Patient of Dr. Girish Sanchez. The patient with pneumonia, parapneumonic effusion, probable empyema. CT scan suggested the possibility of a bronchial obstruction. The patient does have a history of aspiration. Bronchoscopy was performed through 8.5 mm endotracheal tube. The tube was shortened to allow the bronchoscope to pass. The patient was oxygenated with 100% oxygen during the procedure. She was sedated with propofol, Versed, and fentanyl. The endotracheal tube was in good position approximately 2 cm above the michael. Thick copious secretions were noted throughout the endobronchial tree. These were lavaged clear with saline and Mucomyst. No obstructing lesions were seen. Specimens were taken for culture and cytologic examination. The bronchoscope was then withdrawn and the patient was given to Dr. Grey to proceed with right chest tube placement. Chest x-ray is pending. Jin Navarro MD DS/MODL /[id number]
[2019-04-18] MEDS: VANCOMYCIN 1GM/NS 250 ML 250 ML IV SCH (22:34)
[2019-04-19] VITALS (29 sets, daily range): BP systolic 78–160; BP diastolic 43–91
[2019-04-19] MEDS: FENTANYL CITRATE INJ 2,000 MCG in SODIUM CHLORIDE 0.9% 250ML 210 ML IV PRN ×4 (00:22→20:30)
[2019-04-19] MEDS: MIDAZOLAM HCL 25 MG in SODIUM CHLORIDE 0.9% 50ML 45 ML IV PRN ×7 (00:24→21:00)
[2019-04-19] MEDS: PIPER-TAZ 3.375 GM 50 ML IV SCH ×5 (01:02→23:21)
[2019-04-19] MEDS: PANTOPRAZOL 40MG/SOD CHL 0.9% 50 ML IV SCH (02:52)
[2019-04-19 05:13] LABS: BASOPHILS % 0.1 % (0.0-1.0); HEMATOCRIT 26.9 % (34.2-44.1); HEMOGLOBIN 8.8 g/dL (12.0-16.0); LYMPHOCYTES # (AUTO) 2.2 (1.0-3.2); LYMPHOCYTES % 16.4 % (18.0-39.1); MEAN CORPUSCULAR HGB CONC 32.7 g/dL (31-35); MEAN CORPUSCULAR VOLUME 91.8 fL (81-99); MONOCYTES # (AUTO) 0.7 (0.2-0.8); MONOCYTES % 5.5 % (4.4-11.3); NEUTROPHILS # (AUTO) 10.2 (2.1-6.9); NEUTROPHILS % 77.2 % (38.7-80.0); PLATELET COUNT 458 x10e3/uL (140-360); RED BLOOD COUNT 2.93 x10e6/uL (3.6-5.1); RED CELL DISTRIBUTION WIDTH 13.5 % (11.7-14.4)
[2019-04-19 05:38] LABS: ANION GAP 11.7 mmol/L (8-16); BLOOD UREA NITROGEN 19 mg/dL (7-26); BUN/CREATININE RATIO 29 (6-25); CALCIUM 8.2 mg/dL (8.4-10.2); CARBON DIOXIDE 22 mmol/L (22-29); CHLORIDE 113 mmol/L (98-107); CREATININE, SERUM 0.65 mg/dL (0.57-1.11); EST GLOMERULAR FILTRATION RATE > 60 ML/MIN (60-); GLUCOSE 80 mg/dL (74-118); POTASSIUM 3.7 mmol/L (3.5-5.1); SODIUM 143 mmol/L (136-145)
--- NOTE | 2019-04-19 06:35 | Diagnostic Imaging Report ---
EXAMINATION: CHEST SINGLE (PORTABLE) COMPARISON: Chest x-ray 04/18/2019 INDICATION: Tube placement ^ett chest tube DISCUSSION: Frontal view of the chest obtained at 0515 hours. HEART AND MEDIASTINUM: Rightward shifting of the mediastinum is stable. The aorta is tortuous with calcifications of the arch. LINES: Endotracheal tube terminates approximate 5 cm above the michael. Right PICC line terminates in the SVC. Right chest tube remains in the mid chest. Enteric tube extends past the diaphragm. LUNGS/PLEURA: The lungs are diffusely hyperinflated. Loculated right pleural effusion is smaller. No evidence of pneumothorax. BONES AND SOFT TISSUES: No focal osseous lesion. Stable calcified breast prostheses. IMPRESSION: Support devices as described above. Smaller loculated right pleural effusion. No pneumothorax on this image. Signed by: Dr. Reginald Wills MD on 04/19/2019 6:31 AM
--- NOTE | 2019-04-19 06:43 | Diagnostic Imaging Report ---
Abdomen/KUB INDICATION: ^NGT PLACEMENT COMPARISON: Chest x-ray 0515 hours. FINDINGS: Portable, supine image obtained at 0527 hours. The image is motion degraded. The patient is rotated. Medical Devices: Nasogastric tube appears to terminate in the distal stomach overlying the L5 vertebral body. Right chest tube is partially imaged. Bowel: Unremarkable bowel gas pattern. No dilated bowel loops. Free air: None Organomegaly: None Lung bases: Loculated right pleural effusion is redemonstrated. Bones: No focal osseous lesions. Soft tissues: Calcified breast prostheses. IMPRESSION: NG tube appears to terminate in the distal stomach given the limitations of this image. Unremarkable bowel gas pattern. Signed by: Dr. Reginald Wills MD on 04/19/2019 6:40 AM
[2019-04-19] MEDS: LEVALBUTEROL HCL SOLN NEBU 0.63 MG/3 ML NEB INH SCH ×4 (07:20→19:00)
[2019-04-19] MEDS: IPRATROPIUM BROMIDE 0.02% 2.5 ML NEB NEB SCH ×4 (07:20→19:00)
[2019-04-19] MEDS ORDERED: FUROSEMIDE INJ 10 MG/ML 2 ML VIAL IV ONE (07:30)
[2019-04-19] MEDS: METHYLPREDNISOLONE SOD SUCC 40 MG/ML VIAL 1ML IV SCH ×2 (08:04→18:00)
[2019-04-19] MEDS: PANTOPRAZOLE 40 MG 10ML VIAL IV SCH (08:04)
[2019-04-19] MEDS: SODIUM CHLORIDE 0.9% 1000ML 1,000 ML IV SCH ×3 (08:24→21:00)
--- NOTE | 2019-04-19 09:28 | Progress Note ---
DATE: 04/19/2019 SUBJECTIVE: The patient is a 74-year-old female with pleural effusion, status post large chest tube placement yesterday. The patient also had bronchoscopy yesterday with Dr. Navarro simultaneously. The patient currently asymptomatic. No pain noted. The patient's chest tube is not draining at this time. OBJECTIVE: VITAL SIGNS: Temperature is 98.4, pulse of 65, blood pressure is 141/72, respirations of 16. HEENT: Normocephalic, atraumatic. Pupils are reactive. The patient is intubated. CVS: S1, S2 normal. Regular rate and rhythm. ABDOMEN: Nontender, nondistended. LUNGS: Decreased air entry into lung cordon. Positive for dullness. EXTREMITIES: No clubbing, no cyanosis, no edema. LABORATORY VALUES: [place] [address], hemoglobin of 8.8, hematocrit of 26.9. Left shift is better. Chemistry; sodium 143, potassium 3.7, chloride of 113, BUN of 19, creatinine 0.65. Coags are normal. Toxicology, vancomycin trough is 8.2. MEDICATIONS: Include fentanyl, Zosyn, ipratropium, levalbuterol, vancomycin, and pantoprazole for GI prophylaxis. ASSESSMENT: 1. Pleural effusion, status post large chest tube. 2. Empyema. 3. Pneumonia. 4. Debility. 5. History of chronic obstructive pulmonary disease. 6. Hypertension. 7. History of smoking. The patient's gram stain from the bronchial washing pending fungal cultures and Gram stain is pending too. Urine culture, no growth. Blood culture, no growth either. Sputum shows few gram-positive cocci. PLAN: To continue the patient in ICU. Wean protocol as per pulmonology. We will change the Protonix to one IV 40 mg daily. CBC and CMP to be repeated tomorrow and continue on chest tube care. Further recommendation per clinical course. The patient still remains critical. Discussed with further care and risks and benefits of tube has been discussed with the too. MD RICHIE LearyJ/MODL /[id number]
[2019-04-19] MEDS: VANCOMYCIN 1GM/NS 250 ML 250 ML IV SCH (21:58)
[2019-04-20] VITALS (27 sets, daily range): BP systolic 79–168; BP diastolic 51–100
[2019-04-20] MEDS: MIDAZOLAM HCL 25 MG in SODIUM CHLORIDE 0.9% 50ML 45 ML IV PRN ×11 (00:08→23:00)
[2019-04-20] MEDS: LEVALBUTEROL HCL SOLN NEBU 0.63 MG/3 ML NEB INH SCH ×4 (00:10→19:20)
[2019-04-20] MEDS: IPRATROPIUM BROMIDE 0.02% 2.5 ML NEB NEB SCH ×4 (00:10→19:20)
[2019-04-20 05:11] LABS: BASOPHILS % 0.1 % (0.0-1.0); HEMATOCRIT 31.2 % (34.2-44.1); LYMPHOCYTES # (AUTO) 2.1 (1.0-3.2); LYMPHOCYTES % 13.2 % (18.0-39.1); MEAN CORPUSCULAR HEMOGLOBIN 29.9 pg (28-32); MEAN CORPUSCULAR HGB CONC 32.1 g/dL (31-35); MEAN CORPUSCULAR VOLUME 93.4 fL (81-99); MONOCYTES % 6.2 % (4.4-11.3); NEUTROPHILS # (AUTO) 12.8 (2.1-6.9); NEUTROPHILS % 79.6 % (38.7-80.0); PLATELET COUNT 548 x10e3/uL (140-360); RED BLOOD COUNT 3.34 x10e6/uL (3.6-5.1); RED CELL DISTRIBUTION WIDTH 13.9 % (11.7-14.4)
[2019-04-20] MEDS: FENTANYL CITRATE INJ 2,000 MCG in SODIUM CHLORIDE 0.9% 250ML 210 ML IV PRN ×5 (05:16→23:47)
[2019-04-20 05:28] LABS: ANION GAP 10.3 mmol/L (8-16); BLOOD UREA NITROGEN 26 mg/dL (7-26); BUN/CREATININE RATIO 36 (6-25); CALCIUM 8.6 mg/dL (8.4-10.2); CARBON DIOXIDE 24 mmol/L (22-29); CHLORIDE 111 mmol/L (98-107); CREATININE, SERUM 0.72 mg/dL (0.57-1.11); EST GLOMERULAR FILTRATION RATE > 60 ML/MIN (60-); GLUCOSE 129 mg/dL (74-118); POTASSIUM 3.3 mmol/L (3.5-5.1); SODIUM 142 mmol/L (136-145)
[2019-04-20] MEDS: PIPER-TAZ 3.375 GM 50 ML IV SCH ×3 (05:34→18:32)
[2019-04-20] MEDS ORDERED: BISACODYL 10 MG SUPP PR PRN (07:00)
[2019-04-20] MEDS ORDERED: POTASSIUM CHLORIDE 20MEQ/100ML 100 ML IV ONE (07:00)
[2019-04-20] MEDS: PANTOPRAZOLE 40 MG 10ML VIAL IV SCH (08:35)
[2019-04-20] MEDS: METHYLPREDNISOLONE SOD SUCC 40 MG/ML VIAL 1ML IV SCH ×2 (08:35→16:10)
[2019-04-20] MEDS: FUROSEMIDE INJ 10 MG/ML 2 ML VIAL IV SCH (08:35)
--- NOTE | 2019-04-20 08:42 | Progress Note ---
DATE: 04/20/2019 SUBJECTIVE: The patient is a 74-year-old female, who comes in with pneumonia, acute respiratory failure, empyema, hypertension, status post chest tube placement. The patient is currently sedated and intubated. Slept well. No BMs for the last four days. Patient's family is requesting suppository. Urine output has been low. We will challenge her with Lasix at this time. MEDICATIONS: The patient is on an acetylcysteine, ipratropium, levalbuterol, Solu-Medrol, Zosyn and vancomycin. PHYSICAL EXAMINATION: VITAL SIGNS: Temperature is 97.6, pulse of 73, respiration of 14, blood pressure is 120/73, and pulse oximetry of 92%. HEENT: Normocephalic and atraumatic. Intubated. The patient is sedated. The patient has an NG tube with Glucerna going. LUNGS: Positive for rhonchi bilaterally. Left-sided chest tube present. ABDOMEN: Nontender and nondistended. EXTREMITIES: No clubbing, no cyanosis, no edema, and also heel protectors present. LABORATORY VALUES: Today's white count is 16,000, hemoglobin 10, hematocrit 31.2. Patient's left shift is better. Chemistry show sodium of 142 and potassium 3.3, BUN of 26, creatinine 0.72, glucose is 129, and calcium is 8.6. MICROBIOLOGY: 1. Gram stain pending from fungal culture. 2. Urine culture is negative. 3. Blood culture, no growth. 4. Gram stain on the sputum shows few gram-positive cocci in pairs and chains. ASSESSMENT: 1. Pleural effusion, status post large bore chest tube. 2. Empyema. 3. Pneumonia. 4. Chronic obstructive pulmonary disease. 5. History of smoking. 6. Hypertension. 7. Encephalopathy. 8. Acute respiratory failure. PLAN: Continue with vent. Continue with chest tube. Labs daily. Chest x-ray in the morning. GI prophylaxis and DVT prophylaxis. IV antibiotics as per ID. Further recommendation per clinical course. We will continue to monitor the patient. Family by the bedside. We will continue monitoring and discussing the progression along with the family. Girish Sanchez MD ASJ/MODL /[id number]
[2019-04-20] MEDS: SODIUM CHLORIDE 0.9% 1000ML 1,000 ML IV SCH (12:22)
[2019-04-20] MEDS: CLONAZEPAM 0.5 MG TAB PO SCH (18:36)
[2019-04-20] MEDS: QUETIAPINE FUMARATE 25 MG TAB PO SCH (21:08)
[2019-04-20] MEDS: HEPARIN SOD (PORCINE) 5,000 UNIT/ML VIAL SC SCH (21:09)
[2019-04-20] MEDS: VANCOMYCIN 1GM/NS 250 ML 250 ML IV SCH (21:20)
[2019-04-21] VITALS (26 sets, daily range): BP systolic 75–167; BP diastolic 50–100
[2019-04-21] MEDS: PIPER-TAZ 3.375 GM 50 ML IV SCH ×5 (00:12→23:55)
[2019-04-21 05:41] LABS: BASOPHILS % 0.2 % (0.0-1.0); HEMOGLOBIN 9.9 g/dL (12.0-16.0); LYMPHOCYTES # (AUTO) 2.2 (1.0-3.2); LYMPHOCYTES % 12.4 % (18.0-39.1); MEAN CORPUSCULAR HEMOGLOBIN 29.7 pg (28-32); MEAN CORPUSCULAR HGB CONC 31.9 g/dL (31-35); MEAN CORPUSCULAR VOLUME 93.1 fL (81-99); MONOCYTES % 5.7 % (4.4-11.3); PLATELET COUNT 500 x10e3/uL (140-360); RED BLOOD COUNT 3.33 x10e6/uL (3.6-5.1)
[2019-04-21 06:04] LABS: ALANINE AMINOTRANSFERASE 11 IU/L (0-55); ALBUMIN/GLOBULIN RATIO 0.5 (0.8-2.0); ALKALINE PHOSPHATASE 72 IU/L (40-150); ANION GAP 11.5 mmol/L (8-16); BLOOD UREA NITROGEN 25 mg/dL (7-26); BUN/CREATININE RATIO 40 (6-25); CALCIUM 8.5 mg/dL (8.4-10.2); CARBON DIOXIDE 28 mmol/L (22-29); CHLORIDE 107 mmol/L (98-107); CREATININE, SERUM 0.62 mg/dL (0.57-1.11); EST GLOMERULAR FILTRATION RATE > 60 ML/MIN (60-); GLUCOSE 134 mg/dL (74-118); POTASSIUM 3.5 mmol/L (3.5-5.1); SODIUM 143 mmol/L (136-145)
--- NOTE | 2019-04-21 06:21 | Diagnostic Imaging Report ---
EXAMINATION: CHEST SINGLE (PORTABLE) INDICATION: ^INTUBATED, PLEURAL EFFUSION ^[id number] ^0500 COMPARISON: 04/19/2019 FINDINGS: AP view TUBES and LINES: Stable endotracheal and NG tube/OG tubes. Right PICC remains unchanged. Right-sided chest tube in stable position. LUNGS: Lungs are well inflated. Worsening volume loss of the right lower lobe. Subsegmental atelectasis in the left lower lobe are unchanged. PLEURA: Loculated right pleural effusion, mildly decreased. There appears to be a small air component in the right lower hemithorax, decreased since prior exam. HEART AND MEDIASTINUM: The cardiomediastinal silhouette is unremarkable.. BONES AND SOFT TISSUES: No acute osseous lesion. Soft tissues are unremarkable. UPPER ABDOMEN: No free air under the diaphragm. IMPRESSION: Worsening atelectasis of the right lower lobe. Mildly decreased right pleural effusion with a small air component. Signed by: Dr. Stephanie Talamantes M.D. on 04/21/2019 6:17 AM
[2019-04-21] MEDS: LEVALBUTEROL HCL SOLN NEBU 0.63 MG/3 ML NEB INH SCH ×4 (07:55→19:43)
[2019-04-21] MEDS: IPRATROPIUM BROMIDE 0.02% 2.5 ML NEB NEB SCH ×4 (07:55→19:43)
[2019-04-21] MEDS ORDERED: CLONAZEPAM 0.5 MG TAB PO SCH (09:00)
[2019-04-21] MEDS: CLONAZEPAM 0.5 MG TAB PO SCH ×2 (09:01→17:20)
[2019-04-21] MEDS: PANTOPRAZOLE 40 MG 10ML VIAL IV SCH (09:01)
[2019-04-21] MEDS: METHYLPREDNISOLONE SOD SUCC 40 MG/ML VIAL 1ML IV SCH ×2 (09:01→17:20)
[2019-04-21 09:46] LABS: ABG HCO3 28 mmol/L (23-28); ABG PCO2 34 mmHg (41-51); ABG PH 7.53 (7.31-7.41); ABG PO2 49 mmHg (80-105)
[2019-04-21] MEDS: HEPARIN SOD (PORCINE) 5,000 UNIT/ML VIAL SC SCH ×2 (09:52→20:40)
[2019-04-21] MEDS: FUROSEMIDE INJ 10 MG/ML 2 ML VIAL IV SCH (09:52)
--- NOTE | 2019-04-21 10:31 | Progress Note ---
DATE: 04/21/2019 SUBJECTIVE: This is a 74-year-old female with a history of COPD, comes in with pleural effusion and empyema, status post chest tube placement. The patient is also intubated secondary to acute respiratory failure, is on NG tube feeds too. The patient is currently asymptomatic. No complaints from the nursing staff. The patient had multiple bowel movements from the suppository of Dulcolax yesterday. The patient's chest tube and pain control are adequate. OBJECTIVE: VITAL SIGNS: Temperature is afebrile at 97.9, pulse of 89, respirations of 22, blood pressure is 142/66, and pulse oximetry of 97% on mechanical ventilator. HEENT: The patient is intubated for acute respiratory distress. CVS: S1, S2 normal. ABDOMEN: Nontender and nondistended. LUNGS: Decreased air entry. EXTREMITIES: No clubbing, no cyanosis, no edema. The patient does have heel protectors on. LABORATORY VALUES: The patient's white count is 17,000, hemoglobin of 9.9, hematocrit of 31.0. Chemistry; sodium of 143, potassium 3.5, BUN 25, creatinine of 0.62. Coags normal. MICROBIOLOGY: Bronchial washing did grow some yeast species. Fungal culture is pending. AFB is pending. Urine cultures no growth and blood culture no growth and Gram stain sputum showed usual respiratory stephon. The patient currently is on Zosyn and vancomycin. We will continue the same. Heparin for DVT prophylaxis, continue same. Solu-Medrol for COPD and pantoprazole for GI prophylaxis. IMAGING STUDIES: Chest x-ray showed some resolution of mild decreased pleural effusion and worsening atelectasis. PLAN: Continue the patient in ICU. Weaning protocol has been instituted. The patient will be weaned as appropriate. Continue IV antibiotics and GI prophylaxis and DVT prophylaxis. Discussed the case with at bedside. Further recommendation per clinical course. We will continue monitoring the patient. MD JIAN Leary/PATRICIAL /[id number]
[2019-04-21] MEDS: FENTANYL CITRATE INJ 2,000 MCG in SODIUM CHLORIDE 0.9% 250ML 210 ML IV PRN (16:01)
[2019-04-21] MEDS: MIDAZOLAM HCL 25 MG in SODIUM CHLORIDE 0.9% 50ML 45 ML IV PRN ×2 (16:01→23:34)
--- NOTE | 2019-04-21 16:12 | NUR ---
Nutrition Intervention Note RD Recommendation(s) for Physician: - When on the vent, rec continuous TF with Vital AF 1.2 at goal rate @ 45mL/hr (1296kcal, 81g protein, 876mL water) better meet protein and calorie needs, easily digestible with low fiber - When off the vent, rec continuous TF with Glucerna 1.5 @45mL/hr (1620kcal, 89g protein, 820mL water) - Rec water flushes of 50mL q 4hr; additional per MD discretion - Check daily labs, GI tolerance, weight Plan of Care: RD following, monitoring for tolerance and adequacy, TF rec Nutrition reason for involvement: Follow up RD Assessment 04/21: Pt was discussed during AM rounds. S/p chest tube placement. Remained intubated and ventilated. Currently on NG tube feed with Glucerna 1.5 @40mL/hr; tolerating well per RN. Pt had multiple liquid BM today after Dulcolax was given. Will continue to monitor and follow. 04/17: 74yo F, who was admitted for PNA. Visited pt in the room. IVF @100mL/hr; Fentanyl. 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 In the last 2 weeks, noticed that pt was choking on foods several times while eating too fast. On her last doctors visit in February 2019, pt weighted at 119lbs; no recent weight loss noted. At home, pt was bedbound and required O2 24/7. Per RN Joseline, planned for chest tube placement today and bronchoscopy tomorrow. TF will not be started until the procedures were done. Will continue to monitor and follow. Principal Problems/Diagnoses: 1. Acute pneumonia. 2. Empyema. PMH: dementia, borderline DM(per , no taking any meds), anxiety, HTN, PAD, COPD, HLD GI: abdomen soft, non-tender, flatus present Skin: no pressure wound noted Labs: (04/21) Glucose 134 H (04/17) reviewed Meds: fentanyl, heparin, lasix, protonix, solu-medrol Ht: 65in (verified with ) Wt: 128lbs; 134.31lb BMI: 21.3kg/m2 IBW: 125lb Malnutrition Evaluation (04/17) The patient does not meet criteria for a specified degree of malnutrition at this time. Will re-evaluate at follow-up as appropriate. Nutrition Prescription (Diet Order): Glucerna 1.5 @ 40mL/hr Estimated Nutritional Needs: Calories: 1160 1450kcal (20-25kcal/kg/d) Weight used: CBW Protein: 75 116g (1.3-2g/kg/d) Weight used: CBW Diet Adequacy: meeting calorie needs, meeting protein needs Diet Education Needs Assessment: Diet education not indicated. Nutrition Care Level: mod Nutrition Diagnosis: Inadequate energy intake related to current medical status as evidenced by pt requiring EN as main source of nutrition. Goal: Patient will meet 75-100% of estimated needs by follow up Progress: Progressing Interventions: Composition, Rate, Route Monitoring/Evaluation: Total energy intake, Total protein intake, Formula/Solution, Weight change, Gastric tolerance, labs Signed: Aspen Mccormack MS, RD, LD
[2019-04-21] MEDS ORDERED: PROPOFOL IV EMULSION 10MG/ML 100 ML IV PRN (16:15)
--- NOTE | 2019-04-21 18:37 | NUR ---
patient is on vent met with bogdan;yina discussed plans see note
--- NOTE | 2019-04-21 19:00 | NUR ---
Report received. Assumed care. Assessment done. See interventions. Orally intubated with 8.0FR ETT secured at 24cm at the lip. Vent settings: TV 450, FIO2 45%, PRVC 14 and 5cm PEEP. IV Fentanyl @ 300mcg/hr or 37.5 ml/hr and Versed @ 3mg/hr or 6ml/hr. Glucerna 1.5 TF @ 40ml/hr.
--- NOTE | 2019-04-21 19:30 | NUR ---
Dr. Stephenie Grey here. Spoke with family re: surgery on Sunday.
[2019-04-21] MEDS: QUETIAPINE FUMARATE 25 MG TAB PO SCH (20:40)
[2019-04-21] MEDS: VANCOMYCIN 1GM/NS 250 ML 250 ML IV SCH (22:14)
[2019-04-22] VITALS (25 sets, daily range): BP systolic 84–165; BP diastolic 48–94
[2019-04-22] MEDS: FENTANYL CITRATE INJ 2,000 MCG in SODIUM CHLORIDE 0.9% 250ML 210 ML IV PRN (00:57)
[2019-04-22] MEDS: LEVALBUTEROL HCL SOLN NEBU 0.63 MG/3 ML NEB INH SCH ×4 (01:22→19:20)
[2019-04-22] MEDS: IPRATROPIUM BROMIDE 0.02% 2.5 ML NEB NEB SCH ×4 (01:22→19:20)
[2019-04-22 04:26] LABS: BASOPHILS % 0.1 % (0.0-1.0); HEMATOCRIT 29.3 % (34.2-44.1); HEMOGLOBIN 9.6 g/dL (12.0-16.0); LYMPHOCYTES # (AUTO) 2.6 (1.0-3.2); LYMPHOCYTES % 18.1 % (18.0-39.1); MEAN CORPUSCULAR HEMOGLOBIN 30.3 pg (28-32); MEAN CORPUSCULAR HGB CONC 32.8 g/dL (31-35); MEAN CORPUSCULAR VOLUME 92.4 fL (81-99); MONOCYTES # (AUTO) 1.1 (0.2-0.8); MONOCYTES % 7.5 % (4.4-11.3); NEUTROPHILS # (AUTO) 10.4 (2.1-6.9); PLATELET COUNT 439 x10e3/uL (140-360); RED BLOOD COUNT 3.17 x10e6/uL (3.6-5.1); RED CELL DISTRIBUTION WIDTH 14.1 % (11.7-14.4)
[2019-04-22 04:47] LABS: ANION GAP 11.6 mmol/L (8-16); BLOOD UREA NITROGEN 18 mg/dL (7-26); BUN/CREATININE RATIO 31 (6-25); CALCIUM 8.5 mg/dL (8.4-10.2); CARBON DIOXIDE 30 mmol/L (22-29); CHLORIDE 102 mmol/L (98-107); CREATININE, SERUM 0.58 mg/dL (0.57-1.11); EST GLOMERULAR FILTRATION RATE > 60 ML/MIN (60-); GLUCOSE 109 mg/dL (74-118); POTASSIUM 3.6 mmol/L (3.5-5.1); SODIUM 140 mmol/L (136-145)
[2019-04-22] MEDS: PIPER-TAZ 3.375 GM 50 ML IV SCH ×4 (05:30→23:04)
--- NOTE | 2019-04-22 07:57 | Diagnostic Imaging Report ---
Examination: Single AP view of the chest. COMPARISON: 04/21/2019 INDICATION: Intubated DISCUSSION: See impression IMPRESSION: Endotracheal tube, enteric tube, right upper extremity PICC, and large bore right thoracostomy tube are unchanged in position. No pneumothorax. Stable right lower lobe airspace disease, likely reflective of small residual loculated pleural effusion and adjacent atelectasis. Left lung remains grossly clear with minimal lower lobe opacities, likely atelectasis. Signed by: Dr. Jin Mendoza M.D. on 04/22/2019 7:54 AM
[2019-04-22] MEDS: CLONAZEPAM 0.5 MG TAB PO SCH ×2 (08:38→17:46)
[2019-04-22] MEDS: FUROSEMIDE INJ 10 MG/ML 2 ML VIAL IV SCH (08:38)
[2019-04-22] MEDS: PANTOPRAZOLE 40 MG 10ML VIAL IV SCH (08:38)
[2019-04-22] MEDS: METHYLPREDNISOLONE SOD SUCC 40 MG/ML VIAL 1ML IV SCH ×2 (08:38→17:46)
[2019-04-22] MEDS: HEPARIN SOD (PORCINE) 5,000 UNIT/ML VIAL SC SCH ×2 (09:30→21:35)
[2019-04-22] MEDS ORDERED: HEPARIN SOD (PORCINE) 5,000 UNIT/ML VIAL SC SCH (13:30)
[2019-04-22] MEDS: QUETIAPINE FUMARATE 25 MG TAB PO SCH (21:35)
[2019-04-22] MEDS: VANCOMYCIN 1GM/NS 250 ML 250 ML IV SCH (21:36)
[2019-04-22] MEDS: MIDAZOLAM HCL 25 MG in SODIUM CHLORIDE 0.9% 50ML 45 ML IV PRN (22:53)
[2019-04-23] VITALS (24 sets, daily range): BP systolic 78–154; BP diastolic 49–77
[2019-04-23] MEDS: IPRATROPIUM BROMIDE 0.02% 2.5 ML NEB NEB SCH ×4 (03:05→19:15)
[2019-04-23] MEDS: LEVALBUTEROL HCL SOLN NEBU 0.63 MG/3 ML NEB INH SCH ×4 (03:05→19:15)
[2019-04-23 05:05] LABS: BASOPHILS % 0.1 % (0.0-1.0); EOSINOPHILS % 0.1 % (0.0-6.0); HEMATOCRIT 32.6 % (34.2-44.1); HEMOGLOBIN 10.5 g/dL (12.0-16.0); LYMPHOCYTES % 15.7 % (18.0-39.1); MEAN CORPUSCULAR HEMOGLOBIN 29.4 pg (28-32); MEAN CORPUSCULAR HGB CONC 32.2 g/dL (31-35); MEAN CORPUSCULAR VOLUME 91.3 fL (81-99); MONOCYTES # (AUTO) 1.3 (0.2-0.8); MONOCYTES % 6.6 % (4.4-11.3); NEUTROPHILS # (AUTO) 14.4 (2.1-6.9); NEUTROPHILS % 76.4 % (38.7-80.0); PLATELET COUNT 505 x10e3/uL (140-360); RED BLOOD COUNT 3.57 x10e6/uL (3.6-5.1); RED CELL DISTRIBUTION WIDTH 14.5 % (11.7-14.4)
[2019-04-23 05:29] LABS: ALANINE AMINOTRANSFERASE 15 IU/L (0-55); ALBUMIN 2.3 g/dL (3.5-5.0); ALBUMIN/GLOBULIN RATIO 0.6 (0.8-2.0); ALKALINE PHOSPHATASE 66 IU/L (40-150); ANION GAP 11.1 mmol/L (8-16); BLOOD UREA NITROGEN 19 mg/dL (7-26); BUN/CREATININE RATIO 33 (6-25); CALCIUM 8.6 mg/dL (8.4-10.2); CARBON DIOXIDE 30 mmol/L (22-29); CHLORIDE 100 mmol/L (98-107); CREATININE, SERUM 0.58 mg/dL (0.57-1.11); EST GLOMERULAR FILTRATION RATE > 60 ML/MIN (60-); GLUCOSE 109 mg/dL (74-118); POTASSIUM 3.1 mmol/L (3.5-5.1); SODIUM 138 mmol/L (136-145)
[2019-04-23] MEDS: MIDAZOLAM HCL 25 MG in SODIUM CHLORIDE 0.9% 50ML 45 ML IV PRN ×2 (06:07→19:30)
[2019-04-23] MEDS: PIPER-TAZ 3.375 GM 50 ML IV SCH ×3 (06:07→21:24)
[2019-04-23] MEDS ORDERED: POTASSIUM CHL 40 MEQ in SODIUM CHLORIDE 0.9% 250ML 230 ML IV ONE (06:45)
[2019-04-23] MEDS: POTASSIUM CHLORIDE 10MEQ/100ML 100 ML INJ SCH ×4 (07:16→17:21)
--- NOTE | 2019-04-23 07:47 | Progress Note ---
DATE: 04/23/2019 SUBJECTIVE: The patient is here for pleural effusion, empyema, status post chest tube placement, respiratory failure status post intubation. The patient is not extubated. The patient is scheduled for surgery, thoracotomy today for evacuation of empyema/effusion. The patient medicines acetylcysteine, heparin for DVT prophylaxis, ipratropium bromide, levalbuterol, methylprednisolone for COPD exacerbation, Versed for sedation and she is on Zosyn and also vancomycin as per ID recommendation. OBJECTIVE: VITAL SIGNS: Temperature is 97.8, pulse 61, respirations of 14, blood pressure is 126/60, pulse oximetry of 95%. HEENT: Normocephalic, atraumatic. The patient is intubated, awake. CVS: S1, S2 normal. Regular rate and rhythm. ABDOMEN: Slightly tender. There is a ventral hernia present. Chest tube present. EXTREMITIES: No clubbing, no cyanosis, no edema. Heel protectors present. LABORATORY VALUES: White count is up to 18,000 today, hemoglobin of 10.5, hematocrit of 32.6. Chemistries; sodium 132, potassium 3.1, BUN of 19, creatinine 0.58. The patient has had good urine output. Coags are normal. Serology; Clostridium difficile toxin is pending. ASSESSMENT: 1. Empyema/pleural effusion. 2. Pneumonia. 3. Chronic obstructive pulmonary disease exacerbation. 4. Acute respiratory failure. 5. Hypertension. 6. Debility. PLAN: Plan is to do a thoracotomy today by Dr. Grey. The patient is on-call with Surgery. Further recommendation per clinical course to follow. The white count is elevated and antibiotics on board and we will continue to monitor the patient. Girish Sanchez MD ASJ/MODL /[id number]
[2019-04-23] MEDS: CLONAZEPAM 0.5 MG TAB PO SCH ×2 (09:00→17:00)
[2019-04-23] MEDS: HEPARIN SOD (PORCINE) 5,000 UNIT/ML VIAL SC SCH (09:00)
--- NOTE | 2019-04-23 09:48 | NUR ---
ASSESSMENT: Spiritual distress Pt's family cautiously hopeful. Pt's , son and cblaigni-cl-elj at bedside. Pt's states she is scheduled for a procedure "at about eleven." Intervention: Provided pastoral presence and empathic listening. Facilitated illness review. Provided prayer. Outcome: Pt's family expressed appreciation for visit. Will follow as able. DAVID CHARLES Test Analyst Spiritual Care Department O: [phone] Pager: [phone] ([phone] number calling from)
[2019-04-23] MEDS ORDERED: FENTANYL CITRATE/PF 100MCG/2 ML INJ ONE (09:58)
[2019-04-23] MEDS ORDERED: MIDAZOLAM HCL 2 MG/2 ML VIAL ONE (09:58)
[2019-04-23] MEDS: METHYLPREDNISOLONE SOD SUCC 40 MG/ML VIAL 1ML IV SCH (10:04)
[2019-04-23] MEDS: PANTOPRAZOLE 40 MG 10ML VIAL IV SCH (10:04)
[2019-04-23] MEDS: FENTANYL CITRATE INJ 2,000 MCG in SODIUM CHLORIDE 0.9% 250ML 210 ML IV PRN (10:13)
[2019-04-23] MEDS ORDERED: HEPARIN SOD/SOD CHLORIDE 1,000 ML ONE (11:58)
[2019-04-23] MEDS ORDERED: BACITRACIN 50,000 UNIT VIAL ONE (13:46)
[2019-04-23] MEDS ORDERED: BUPIVACAINE 0.25%/EPI 30ML SDV INJ ONE (13:46)
[2019-04-23] MEDS ORDERED: HYDROMORPHONE 1MG/1ML INJ IV PRN (16:15)
--- NOTE | 2019-04-23 16:20 | NUR ---
Entering in patient rm 195, I comfirmed with the anesthesia dr. gutierrez the tube placement at 21 at the lip. A x-ray was ordered, and the vent settings were changed to VC / VT 500, 12, 5+ 100%
--- NOTE | 2019-04-23 16:42 | Diagnostic Imaging Report ---
Examination: Single AP view of the chest. COMPARISON: 04/22/2019 INDICATION: Endotracheal tube, central line placement DISCUSSION: Endotracheal tube is unchanged in position. Enteric tube has been removed. There are now 2 large bore right thoracostomy tubes, with interval removal of the previous chest tube placed more superiorly. The tube tips project over the suprahilar region of the right lung and over the right lung apex. No pneumothorax is appreciated. A central line has been placed in the interim by a right internal jugular approach, with the tip projecting over the low superior vena cava. Tip of the right upper extremity PICC is superimposed over that of the newly placed central line. Unchanged right hemithoracic volume loss and opacity dictation of the right lower hemithorax. The left lung remains comparatively clear with coarse reticular opacities in the base, possibly reflecting age-related fibrotic change. No acute osseous abnormality. IMPRESSION: Endotracheal tube and right upper extremity PICC are unchanged in position. Interval removal of enteric tube. New right internal jugular central venous catheter tip projects over the low superior vena cava. Interval removal of mid thoracic right large bore chest tube and placement of 2 inferior approach large-bore chest tubes, with the tips projecting over the suprahilar region and right apex. No pneumothorax. Persistent right hemithoracic volume loss with opacification of the inferior half of the hemithorax and ipsilateral mediastinal shift. Signed by: Dr. Jin Mendoza M.D. on 04/23/2019 4:38 PM
[2019-04-23] MEDS: SODIUM CHLORIDE 0.9% 1000ML 1,000 ML IV SCH (17:22)
[2019-04-23] MEDS: FLUCONAZOLE 200 MG/100 ML 100 ML IV SCH (18:27)
[2019-04-23 18:50] LABS: BASOPHILS # (AUTO) 0.1 (0.0-0.1); BASOPHILS % 0.1 % (0.0-1.0); EOSINOPHILS % 0.1 % (0.0-6.0); HEMATOCRIT 28.7 % (34.2-44.1); HEMOGLOBIN 9.6 g/dL (12.0-16.0); LYMPHOCYTES # (AUTO) 1.1 (1.0-3.2); LYMPHOCYTES % 3.2 % (18.0-39.1); MEAN CORPUSCULAR HEMOGLOBIN 30.6 pg (28-32); MEAN CORPUSCULAR HGB CONC 33.4 g/dL (31-35); MEAN CORPUSCULAR VOLUME 91.4 fL (81-99); MONOCYTES # (AUTO) 1.6 (0.2-0.8); MONOCYTES % 4.6 % (4.4-11.3); NEUTROPHILS # (AUTO) 30.9 (2.1-6.9); PLATELET COUNT 447 x10e3/uL (140-360); RED BLOOD COUNT 3.14 x10e6/uL (3.6-5.1); RED CELL DISTRIBUTION WIDTH 14.9 % (11.7-14.4)
[2019-04-23 19:19] LABS: ANION GAP 9.9 mmol/L (8-16); BLOOD UREA NITROGEN 16 mg/dL (7-26); BUN/CREATININE RATIO 26 (6-25); CALCIUM 7.7 mg/dL (8.4-10.2); CARBON DIOXIDE 26 mmol/L (22-29); CHLORIDE 104 mmol/L (98-107); CREATININE, SERUM 0.62 mg/dL (0.57-1.11); EST GLOMERULAR FILTRATION RATE > 60 ML/MIN (60-); GLUCOSE 168 mg/dL (74-118); POTASSIUM 3.9 mmol/L (3.5-5.1); SODIUM 136 mmol/L (136-145)
[2019-04-23] MEDS ORDERED: DEXAMETHASONE SOD PHOS INJ 4 MG/ML VIAL ONE (19:29)
[2019-04-23] MEDS ORDERED: LIDOCAINE HCL 2% JELLY 5 ML TUBE ONE (19:29)
[2019-04-23] MEDS ORDERED: ONDANSETRON HCL INJ 2MG/ML 2ML 2 MG/ML VIAL ONE (19:29)
[2019-04-23] MEDS ORDERED: PROPOFOL IV EMULSION 10 MG/ML 20 ML VIAL ONE (19:29)
[2019-04-23] MEDS ORDERED: ROCURONIUM BROMIDE 10 MG/ML 5ML VIAL ONE (19:29)
[2019-04-23] MEDS ORDERED: SEVOFLURANE INHAL SOLN 250 ML PEN BTL ONE (19:29)
[2019-04-23] MEDS ORDERED: LIDOCAINE HCL 2% LOCAL INJ 5 ML SDV VIAL INJ ONE (19:29)
[2019-04-23] MEDS: HYDROMORPHONE 2MG/ML 2 MG/ML ML IV PRN (19:40)
--- NOTE | 2019-04-23 21:34 | Diagnostic Imaging Report ---
EXAM: Abdomen 1 View INDICATION: ^OG TUBE PLACEMENT ^[id number] ^2099 COMPARISON:Same day chest x-ray FINDINGS: Dedicated x-ray to confirm OG-tube placement. OG-tube is visualized, with tip projecting at the level of the gastroesophageal junction. The side-port is above the gastroesophageal junction within distal esophagus. Right-sided chest tubes are seen. Right mid to lower lung field opacification, representing moderate to large size effusion/atelectasis and/or pneumonia. Trace left pleural effusion. Mild gaseous distention of bowel loops. Generalized demineralization. IMPRESSION: Recommend advancement of OG tube. Signed by: Dr. Vinayak Ceballos MD on 04/23/2019 9:30 PM
--- NOTE | 2019-04-23 22:29 | Diagnostic Imaging Report ---
EXAM: Abdomen 1 View INDICATION: ^OG TUBE PLACEMENT ^[id number] ^2139 COMPARISON: Earlier same day. FINDINGS: See impression. IMPRESSION: Interval advancement of OG tube with tip now projecting over the gastric fundus in left upper quadrant and side port below the gastroesophageal junction. Signed by: Dr. Vinayak Ceballos MD on 04/23/2019 10:26 PM
[2019-04-23] MEDS: VANCOMYCIN 1GM/NS 250 ML 250 ML IV SCH (22:42)
[2019-04-23] MEDS: QUETIAPINE FUMARATE 25 MG TAB PO SCH (22:42)
[2019-04-24] VITALS (25 sets, daily range): BP systolic 84–136; BP diastolic 49–79
[2019-04-24] MEDS: PIPER-TAZ 3.375 GM 50 ML IV SCH ×4 (00:10→18:06)
[2019-04-24] MEDS: MIDAZOLAM HCL 25 MG in SODIUM CHLORIDE 0.9% 50ML 45 ML IV PRN ×5 (01:59→06:20)
[2019-04-24] MEDS: FENTANYL CITRATE INJ 2,000 MCG in SODIUM CHLORIDE 0.9% 250ML 210 ML IV PRN ×2 (02:00→05:05)
[2019-04-24] MEDS: SODIUM CHLORIDE 0.9% 1000ML 1,000 ML IV SCH ×2 (02:10→12:58)
[2019-04-24] MEDS: IPRATROPIUM BROMIDE 0.02% 2.5 ML NEB NEB SCH ×4 (02:20→19:00)
[2019-04-24] MEDS: LEVALBUTEROL HCL SOLN NEBU 0.63 MG/3 ML NEB INH SCH ×4 (02:20→19:00)
[2019-04-24 04:51] LABS: BASOPHILS % 0.1 % (0.0-1.0); HEMATOCRIT 24.9 % (34.2-44.1); HEMOGLOBIN 8.1 g/dL (12.0-16.0); LYMPHOCYTES # (AUTO) 2.3 (1.0-3.2); LYMPHOCYTES % 9.1 % (18.0-39.1); MEAN CORPUSCULAR HEMOGLOBIN 30.2 pg (28-32); MEAN CORPUSCULAR HGB CONC 32.5 g/dL (31-35); MEAN CORPUSCULAR VOLUME 92.9 fL (81-99); MONOCYTES # (AUTO) 1.5 (0.2-0.8); MONOCYTES % 5.8 % (4.4-11.3); NEUTROPHILS % 83.5 % (38.7-80.0); PLATELET COUNT 357 x10e3/uL (140-360); RED BLOOD COUNT 2.68 x10e6/uL (3.6-5.1); RED CELL DISTRIBUTION WIDTH 15.1 % (11.7-14.4)
[2019-04-24 05:18] LABS: ALANINE AMINOTRANSFERASE 17 IU/L (0-55); ALBUMIN 1.9 g/dL (3.5-5.0); ALBUMIN/GLOBULIN RATIO 0.7 (0.8-2.0); ALKALINE PHOSPHATASE 60 IU/L (40-150); ANION GAP 9.9 mmol/L (8-16); BLOOD UREA NITROGEN 19 mg/dL (7-26); BUN/CREATININE RATIO 29 (6-25); CALCIUM 7.8 mg/dL (8.4-10.2); CARBON DIOXIDE 25 mmol/L (22-29); CHLORIDE 109 mmol/L (98-107); CREATININE, SERUM 0.66 mg/dL (0.57-1.11); EST GLOMERULAR FILTRATION RATE > 60 ML/MIN (60-); GLUCOSE 115 mg/dL (74-118); POTASSIUM 3.9 mmol/L (3.5-5.1); SODIUM 140 mmol/L (136-145)
--- NOTE | 2019-04-24 06:34 | Diagnostic Imaging Report ---
EXAMINATION: CHEST SINGLE (PORTABLE) INDICATION: ^intubated ^[id number] ^0515 COMPARISON: 04/23/2019 FINDINGS: AP view TUBES and LINES: Stable endotracheal tube and right-sided chest tubes. Stable right PICC and right internal jugular central line. Nasogastric tube in place with tip extending beyond the inferior margin of the film. LUNGS and pleura: Lungs are well inflated. Unchanged mild central vascular congestion. No visible pneumothorax. Unchanged opacification of the inferior half of the right hemithorax with mediastinal shift, likely from atelectasis. Underlying pneumonia cannot be excluded. HEART AND MEDIASTINUM: The cardiac silhouette is obscured. Mediastinal shift to the right. BONES AND SOFT TISSUES: No acute osseous lesion. Calcified bilateral breast implants are seen. UPPER ABDOMEN: No free air under the diaphragm. IMPRESSION: Interval placement of nasogastric tube. Otherwise, no significant interval change from prior exam. Signed by: Dr. Vinayak Ceballos MD on 04/24/2019 6:30 AM
--- NOTE | 2019-04-24 06:55 | NUR ---
ASSESSMENT: Spiritual concern Follow-up visit. Pt's hopeful and thankful. Pt's at bedside and pt awake. Pt's states his , "is improving" following yesterday's procedure. Pt's states, " I appreciate all of your staff and what they are doing." Concerning peyman he stated, "I believe in the power of the Lord." Intervention: Provided empathic and supportive listening. Outcome: Will continue to follow as able. DAVID CHARLES Technical Illustrator Spiritual Care Department O: [phone] Pager: [phone] ([phone] number calling from)
[2019-04-24] MEDS: CLONAZEPAM 0.5 MG TAB PO SCH ×2 (08:26→16:06)
[2019-04-24] MEDS: PANTOPRAZOLE 40 MG 10ML VIAL IV SCH (08:26)
[2019-04-24 09:18] LABS: ABG PCO2 38 mmHg (41-51)
[2019-04-24 09:19] LABS: ABG HCO3 24 mmol/L (23-28); ABG PO2 83 mmHg (80-105)
--- NOTE | 2019-04-24 10:29 | NUR ---
ST Note: Order for Bedside Swallow Eval noted. Pt extubated this AM ~ 8:00 according to EMR and intubated ~ 8 days. Pt is at very high risk for aspiration at this time due to length of time intubated. Recommend pt remain NPO for now. Will initiate evaluation of swallow safety tomorrow 04/25/19.
[2019-04-24] MEDS: FLUCONAZOLE 200 MG/100 ML 100 ML IV SCH (11:07)
--- NOTE | 2019-04-24 14:06 | NUR ---
Nutrition Intervention Note RD Recommendation(s) for Physician: - If PO is not feasible, rec continuous TF with Glucerna 1.5 @45mL/hr (1620kcal, 89g protein, 820mL water) - Rec water flushes of 50mL q 4hr; additional per MD discretion - If PO is feasible, rec ADA 1600 diet; diet texture per HEAD CHARGER - Check daily labs, GI tolerance, weight Plan of Care: RD following, monitoring for tolerance and adequacy, TF rec Nutrition reason for involvement: Follow up RD Assessment 04/24: Pt was discussed during AM rounds. TF was stopped after extubation. On nasal canula. Pending swallow evaluation. Off sedation. Pt is awake and alert. Will continue to monitor and follow. 04/21: Pt was discussed during AM rounds. S/p chest tube placement. Remained intubated and ventilated. Currently on NG tube feed with Glucerna 1.5 @40mL/hr; tolerating well per RN. Pt had multiple liquid BM today after Dulcolax was given. Will continue to monitor and follow. 04/17: 74yo F, who was admitted for PNA. Visited pt in the room. IVF @100mL/hr; Fentanyl. Per , pt has had good appetite [employer]EMAKING [employer]. In the last 2 weeks, noticed that pt was choking on foods several times while eating too fast. On her last doctors visit in February 2019, pt weighted at 119lbs; no recent weight loss noted. At home, pt was bedbound and required O2 24/7. Per RN Joseline, planned for chest tube placement today and bronchoscopy tomorrow. TF will not be started until the procedures were done. Will continue to monitor and follow. Principal Problems/Diagnoses: 1. Acute pneumonia. 2. Empyema. PMH: dementia, borderline DM(per , no taking any meds), anxiety, HTN, PAD, COPD, HLD GI: abdomen soft, non-tender, flatus present Skin: no pressure wound noted Labs: 04/24 Ca 7.8 L (04/21) Glucose 134 H (04/17) reviewed Meds: NaCl, protonix Ht: 65in (verified with ) Wt: 128lbs; 134.31lb; 124.05lb BMI: 21.3kg/m2 IBW: 125lb Malnutrition Evaluation (04/17) The patient does not meet criteria for a specified degree of malnutrition at this time. Will re-evaluate at follow-up as appropriate. Nutrition Prescription (Diet Order): NPO Estimated Nutritional Needs: Calories: 1160 1450kcal (20-25kcal/kg/d) Weight used: CBW Protein: 75 116g (1.3-2g/kg/d) Weight used: CBW Diet Adequacy: Not meeting calorie needs, not meeting protein needs Diet Education Needs Assessment: Diet education not indicated. Nutrition Care Level: mod Nutrition Diagnosis: Inadequate energy intake related to current medical status as evidenced by pt requiring EN as main source of nutrition. Goal: Patient will meet 75-100% of estimated needs by follow up Progress: Progressing Interventions: Composition, Rate, Route Monitoring/Evaluation: Total energy intake, Total protein intake, Formula/Solution, Weight change, Gastric tolerance, labs Signed: Aspen Mccormack MS, RD, LD
--- NOTE | 2019-04-24 14:10 | NUR ---
PT EXTUBATED AND IS PENDING A SWALOW EVAL ON O2 AND IV ABX, PENDING PLAN FOR RESULTS OF SWALLOW.
[2019-04-24] MEDS: HYDROMORPHONE 2MG/ML 2 MG/ML ML IV PRN (19:07)
[2019-04-24] MEDS: QUETIAPINE FUMARATE 25 MG TAB PO SCH (20:08)
[2019-04-24] MEDS: LORAZEPAM INJ 2 MG/ML VIAL IV PRN (22:06)
[2019-04-24] MEDS: VANCOMYCIN 1GM/NS 250 ML 250 ML IV SCH (22:10)
[2019-04-25] VITALS (24 sets, daily range): BP systolic 107–155; BP diastolic 46–75
[2019-04-25] MEDS: HYDROMORPHONE 2MG/ML 2 MG/ML ML IV PRN ×4 (00:04→17:05)
[2019-04-25] MEDS: PIPER-TAZ 3.375 GM 50 ML IV SCH ×4 (00:07→18:24)
[2019-04-25] MEDS: LEVALBUTEROL HCL SOLN NEBU 0.63 MG/3 ML NEB INH SCH ×4 (00:20→19:23)
[2019-04-25] MEDS: IPRATROPIUM BROMIDE 0.02% 2.5 ML NEB NEB SCH ×4 (00:20→19:23)
[2019-04-25] MEDS: SODIUM CHLORIDE 0.9% 1000ML 1,000 ML IV SCH ×2 (00:20→15:54)
[2019-04-25 01:41] LABS: BASOPHILS % 0.1 % (0.0-1.0); HEMATOCRIT 24.3 % (34.2-44.1); HEMOGLOBIN 7.8 g/dL (12.0-16.0); LYMPHOCYTES # (AUTO) 2.5 (1.0-3.2); LYMPHOCYTES % 11.8 % (18.0-39.1); MEAN CORPUSCULAR HEMOGLOBIN 30.4 pg (28-32); MEAN CORPUSCULAR HGB CONC 32.1 g/dL (31-35); MEAN CORPUSCULAR VOLUME 94.6 fL (81-99); MONOCYTES # (AUTO) 1.7 (0.2-0.8); MONOCYTES % 7.8 % (4.4-11.3); NEUTROPHILS # (AUTO) 16.9 (2.1-6.9); NEUTROPHILS % 79.2 % (38.7-80.0); PLATELET COUNT 339 x10e3/uL (140-360); RED BLOOD COUNT 2.57 x10e6/uL (3.6-5.1); RED CELL DISTRIBUTION WIDTH 15.5 % (11.7-14.4)
[2019-04-25 02:02] LABS: ANION GAP 8.4 mmol/L (8-16); BLOOD UREA NITROGEN 13 mg/dL (7-26); BUN/CREATININE RATIO 20 (6-25); CALCIUM 8.2 mg/dL (8.4-10.2); CARBON DIOXIDE 26 mmol/L (22-29); CHLORIDE 111 mmol/L (98-107); CREATININE, SERUM 0.64 mg/dL (0.57-1.11); EST GLOMERULAR FILTRATION RATE > 60 ML/MIN (60-); GLUCOSE 97 mg/dL (74-118); POTASSIUM 3.4 mmol/L (3.5-5.1); SODIUM 142 mmol/L (136-145)
--- NOTE | 2019-04-25 05:51 | Diagnostic Imaging Report ---
EXAMINATION: CHEST SINGLE (PORTABLE) INDICATION: ^chest tubes ^[id number] ^0510 COMPARISON: 04/24/2019 FINDINGS: AP view TUBES and LINES: Stable right internal jugular central line and 2 right-sided chest tubes. Interval extubation and removal of nasogastric tube. Stable right PICC. LUNGS: Lungs are well inflated. Again seen right lung volume loss with mediastinal shift to the right which is increased when compared to prior x-ray. Mild interstitial edema. PLEURA: No pneumothorax. HEART AND MEDIASTINUM: The cardiac silhouette is enlarged. BONES AND SOFT TISSUES: No acute osseous lesion. Calcified bilateral breast implants. UPPER ABDOMEN: No free air under the diaphragm. IMPRESSION: Increased right lung atelectasis and decreased aeration of the right lung when compared to prior x-ray. There is persistent mediastinal shift to the right. Small right pleural effusion suspected. Mild interstitial edema. Interval extubation and removal of nasogastric tube. Signed by: Dr. Vinayak Ceballos MD on 04/25/2019 5:48 AM
--- NOTE | 2019-04-25 07:31 | Progress Note ---
DATE: 04/25/2019 SUBJECTIVE: This patient is here for acute pleural effusion, empyema, status post thoracotomy with tube placement. The patient is currently complaining of some chest pain, especially on movement. Bowel sounds positive. OBJECTIVE: VITAL SIGNS: Blood pressure 124/65, oxygen is 97%. Afebrile. HEENT: Normocephalic, atraumatic. Pupils are reactive to light and accommodation. The patient's NG tube has been taken out and also endotracheal tube is taken out. GENERAL: She is alert and oriented x3. ABDOMEN: Nontender, nondistended. EXTREMITIES: No clubbing, no cyanosis, no edema. The patient's Carbone out 750. Labs are not available at this time, medical system down, but afebrile and the patient looks stable. ASSESSMENT: 1. Empyema, status post chest tube placement, thoracotomy. 2. COPD exacerbation. 3. Pneumonia. 4. Pleural effusion. 5. History of NM in the past. PLAN: Continue to monitor the patient. Chest tube in place, we will take up one probably today. Continue with ICU monitoring at this time. Possible discharge on to the floor in a couple of days. Further recommendation per clinical course. We will continue to monitor the patient. MD JIAN Leary/ÁNGEL /[id number]
[2019-04-25] MEDS: CLONAZEPAM 0.5 MG TAB PO SCH ×2 (09:00→19:36)
[2019-04-25] MEDS: PANTOPRAZOLE 40 MG 10ML VIAL IV SCH (10:55)
[2019-04-25] MEDS: FLUCONAZOLE 200 MG/100 ML 100 ML IV SCH (11:00)
--- NOTE | 2019-04-25 18:23 | Diagnostic Imaging Report ---
Exam: Abdominal film Clinical History: Enteric tube Comparison: None. DISCUSSION: Enteric tube with the tip overlying the left upper quadrant. Partially visualized left-sided chest tubes. Scattered enteric contrast. Nonobstructive bowel gas pattern. IMPRESSION: 1. Enteric tube with the tip overlying the left upper quadrant Signed by: Dr. Donn Monteiro M.D. on 04/25/2019 6:20 PM
--- NOTE | 2019-04-25 19:00 | NUR ---
Report received. Assumed care. Assessment done. See interventions. O2 per NC @ 4L. IV NS @ 60ml/hr. NGT to Left Nare. Glucerna 1.5 started @ 30ml/hr.
--- NOTE | 2019-04-25 19:58 | Progress Note ---
DATE: 04/25/2019 SUBJECTIVE: Ms. Ramirez is doing good post surgery. She is currently lying in bed, not intubated. I have discussed the case with the surgery. There was some pus in the chest cavity, but all clean, but more importantly the patient's right lower lobe is very hard and probably destroyed from the recurrent aspiration. Often just, the patient continues to aspirate. She was just evaluated today. PHYSICAL EXAMINATION: GENERAL: She is currently alert, follows command. VITAL SIGNS: Stable, afebrile. HEENT: She is not icteric. NECK: Supple. CHEST: Few crackles. HEART: S1, S2. No murmurs. ABDOMEN: Soft. IMPRESSION: 1. Recurrent aspiration. Pneumonia in right lower lobe with empyema, status post video-assisted thoracoscopic surgery, doing well. She is currently on vancomycin and Zosyn to finish 14 days recurrent, aspiration. 2. Debilitated. 3. Underlying dementia. Discussed with the . Discussed with the nursing team. MD MISHA Reaves/ÁNGEL /[id number]
[2019-04-25] MEDS: QUETIAPINE FUMARATE 25 MG TAB PO SCH (21:22)
[2019-04-25] MEDS: VANCOMYCIN 1GM/NS 250 ML 250 ML IV SCH (21:56)
[2019-04-26] VITALS (25 sets, daily range): BP systolic 93–135; BP diastolic 42–97
[2019-04-26] MEDS: LEVALBUTEROL HCL SOLN NEBU 0.63 MG/3 ML NEB INH SCH ×4 (00:38→19:15)
[2019-04-26] MEDS: IPRATROPIUM BROMIDE 0.02% 2.5 ML NEB NEB SCH ×4 (00:38→19:15)
--- NOTE | 2019-04-26 03:43 | NUR ---
NGT pulled out by pt. Tube feeding soiled glider sheet and linens. Complete bed bath given. Bed linens changed. NGT reinserted to left nare without difficulty.
[2019-04-26] MEDS: SODIUM CHLORIDE 0.9% 1000ML 1,000 ML IV SCH (03:45)
[2019-04-26 04:31] LABS: BASOPHILS % 0.2 % (0.0-1.0); EOSINOPHILS # (AUTO) 0.3 (0.0-0.4); EOSINOPHILS % 1.6 % (0.0-6.0); HEMATOCRIT 23.3 % (34.2-44.1); HEMOGLOBIN 7.4 g/dL (12.0-16.0); LYMPHOCYTES # (AUTO) 1.8 (1.0-3.2); LYMPHOCYTES % 10.4 % (18.0-39.1); MEAN CORPUSCULAR HEMOGLOBIN 30.6 pg (28-32); MEAN CORPUSCULAR HGB CONC 31.8 g/dL (31-35); MEAN CORPUSCULAR VOLUME 96.3 fL (81-99); MONOCYTES # (AUTO) 1.4 (0.2-0.8); MONOCYTES % 7.8 % (4.4-11.3); NEUTROPHILS # (AUTO) 13.9 (2.1-6.9); NEUTROPHILS % 79.1 % (38.7-80.0); PLATELET COUNT 321 x10e3/uL (140-360); RED BLOOD COUNT 2.42 x10e6/uL (3.6-5.1); RED CELL DISTRIBUTION WIDTH 15.4 % (11.7-14.4)
[2019-04-26] MEDS: HYDROMORPHONE 2MG/ML 2 MG/ML ML IV PRN ×3 (04:33→17:21)
--- NOTE | 2019-04-26 04:33 | NUR ---
Medicated for c/o pain. Dr. Milligan here. No new orders.
[2019-04-26 04:48] LABS: ALANINE AMINOTRANSFERASE 19 IU/L (0-55); ALBUMIN 1.8 g/dL (3.5-5.0); ALBUMIN/GLOBULIN RATIO 0.6 (0.8-2.0); ALKALINE PHOSPHATASE 68 IU/L (40-150); ANION GAP 9.9 mmol/L (8-16); BLOOD UREA NITROGEN 6 mg/dL (7-26); BUN/CREATININE RATIO 11 (6-25); CALCIUM 7.9 mg/dL (8.4-10.2); CARBON DIOXIDE 27 mmol/L (22-29); CHLORIDE 106 mmol/L (98-107); CREATININE, SERUM 0.54 mg/dL (0.57-1.11); EST GLOMERULAR FILTRATION RATE > 60 ML/MIN (60-); GLUCOSE 101 mg/dL (74-118); SODIUM 140 mmol/L (136-145)
[2019-04-26 05:16] LABS: POTASSIUM 2.9 mmol/L (3.5-5.1)
[2019-04-26] MEDS ORDERED: POTASSIUM CHLORIDE 20MEQ/100ML 300 ML IV ONE (05:30)
[2019-04-26] MEDS: PIPER-TAZ 3.375 GM 50 ML IV SCH ×4 (05:54→18:05)
--- NOTE | 2019-04-26 06:42 | Diagnostic Imaging Report ---
EXAM: Abdomen 1 View INDICATION: ^NGT placement ^[id number] ^0520 COMPARISON: 04/29/2019 FINDINGS: See impression. IMPRESSION: Nasogastric tube is visualized, coursing down below the left hemidiaphragm. The tip extends to the right abdomen, probably within gastric antrum. This has been advanced when compared to prior exam. Chest tubes and lung findings are unchanged. Signed by: Dr. Vinayak Ceballos MD on 04/26/2019 6:39 AM
--- NOTE | 2019-04-26 06:47 | Diagnostic Imaging Report ---
EXAMINATION: CHEST SINGLE (PORTABLE) INDICATION: ^Pleural effusion ^[id number] ^0520 COMPARISON: 04/25/2019 FINDINGS: AP view TUBES and LINES: Stable right internal jugular central line, right PICC, and right chest tubes. Nasogastric tube in place, which extends beyond the inferior margin of the film. LUNGS and pleura: Further decrease in right lung volume when compared to prior exam. No visible pneumothorax. Unchanged trace left pleural effusion. HEART AND MEDIASTINUM: The cardiac silhouette is enlarged. Mediastinal shift to the right. BONES AND SOFT TISSUES: No acute osseous lesion. Soft tissues are unremarkable. UPPER ABDOMEN: No free air under the diaphragm. IMPRESSION: Further decrease in right lung volume, representing increased atelectasis and/or effusion when compared to prior x-ray. Signed by: Dr. Vinayak Ceballos MD on 04/26/2019 6:44 AM
--- NOTE | 2019-04-26 07:33 | Diagnostic Imaging Report ---
EXAM: Abdomen 1 Views INDICATION: ^NGT placement--Is it ok to use? COMPARISON: Chest radiograph 04/26/2019 and KUB 04/26/2019 FINDINGS: Lines/tubes: Interval repositioning of the NG tube with tip now overlying the distal gastric body. Moderate amount of stool and oral contrast in the colon. No dilated loops of small bowel. No renal calculi. No abnormal soft tissue masses. Mild degenerative changes in the lumbar spine and pelvis. IMPRESSION: Interval repositioning of the NG tube with tip now overlying the distal gastric body. Signed by: Dr. Stephanie Talamantes M.D. on 04/26/2019 7:30 AM
[2019-04-26] MEDS: PANTOPRAZOLE 40 MG 10ML VIAL IV SCH (08:38)
[2019-04-26] MEDS: CLONAZEPAM 0.5 MG TAB PO SCH ×2 (08:38→17:21)
[2019-04-26] MEDS: NYSTATIN 15 GM POWDER UD BTL TOP SCH ×2 (10:00→17:21)
[2019-04-26] MEDS: FLUCONAZOLE 200 MG/100 ML 100 ML IV SCH (13:30)
--- NOTE | 2019-04-26 14:28 | NUR ---
nurse conferencing with family and wanted to wait ..[phone]...will return later Addendum: 04/26/19 at 1430 by Edis Miranda PTA Amended: Links added.
[2019-04-26] MEDS: LORAZEPAM INJ 2 MG/ML VIAL IV PRN (14:43)
[2019-04-26] MEDS ORDERED: FUROSEMIDE INJ 10 MG/ML 4 ML VIAL IV NR (15:00)
[2019-04-26] MEDS ORDERED: ONDANSETRON HCL INJ 2MG/ML 2ML 2 MG/ML VIAL IV PRN (17:00)
[2019-04-26 18:03] LABS: BASOPHILS % 0.2 % (0.0-1.0); HEMATOCRIT 24.6 % (34.2-44.1); HEMOGLOBIN 8.1 g/dL (12.0-16.0); LYMPHOCYTES # (AUTO) 2.2 (1.0-3.2); LYMPHOCYTES % 10.8 % (18.0-39.1); MEAN CORPUSCULAR HEMOGLOBIN 30.6 pg (28-32); MEAN CORPUSCULAR HGB CONC 32.9 g/dL (31-35); MEAN CORPUSCULAR VOLUME 92.8 fL (81-99); MONOCYTES # (AUTO) 1.8 (0.2-0.8); MONOCYTES % 8.8 % (4.4-11.3); NEUTROPHILS # (AUTO) 15.7 (2.1-6.9); NEUTROPHILS % 79.1 % (38.7-80.0); PLATELET COUNT 400 x10e3/uL (140-360); RED BLOOD COUNT 2.65 x10e6/uL (3.6-5.1); RED CELL DISTRIBUTION WIDTH 15.9 % (11.7-14.4)
[2019-04-26] MEDS: ACETAMINOPHEN 325 MG/10 ML UDC NG PRN (18:05)
[2019-04-26 18:21] LABS: ALANINE AMINOTRANSFERASE 20 IU/L (0-55); ALBUMIN/GLOBULIN RATIO 0.6 (0.8-2.0); ALKALINE PHOSPHATASE 76 IU/L (40-150); ANION GAP 10.2 mmol/L (8-16); BLOOD UREA NITROGEN 7 mg/dL (7-26); BUN/CREATININE RATIO 12 (6-25); CALCIUM 8.2 mg/dL (8.4-10.2); CARBON DIOXIDE 31 mmol/L (22-29); CHLORIDE 102 mmol/L (98-107); CREATININE, SERUM 0.59 mg/dL (0.57-1.11); EST GLOMERULAR FILTRATION RATE > 60 ML/MIN (60-); GLUCOSE 126 mg/dL (74-118); POTASSIUM 3.2 mmol/L (3.5-5.1); SODIUM 140 mmol/L (136-145)
--- NOTE | 2019-04-26 19:30 | NUR ---
Spoke with Dr. Milligan re: K+. Orders given.
[2019-04-26] MEDS ORDERED: POTASSIUM CHLORIDE 20MEQ/100ML 200 ML IV ONE (20:30)
[2019-04-26] MEDS: QUETIAPINE FUMARATE 25 MG TAB PO SCH (21:33)
[2019-04-26] MEDS: VANCOMYCIN 1GM/NS 250 ML 250 ML IV SCH (21:48)
--- NOTE | 2019-04-26 22:27 | NUR ---
veronica-brayden called at . rotational bed with cpt ordered at this time. spoke to Ganga and confirmation number is [id number]. bed to be delivered sometime tonight or early am.
[2019-04-27] VITALS (23 sets, daily range): BP systolic 89–137; BP diastolic 44–69
--- NOTE | 2019-04-27 | NUR ---
Complete bed bath given. Bed linens changed.
[2019-04-27] MEDS: PIPER-TAZ 3.375 GM 50 ML IV SCH ×4 (00:07→17:15)
[2019-04-27] MEDS: HYDROMORPHONE 2MG/ML 2 MG/ML ML IV PRN ×5 (00:50→18:25)
--- NOTE | 2019-04-27 00:50 | NUR ---
Medicated for c/o pain to chest tube sites.
[2019-04-27] MEDS: SODIUM CHLORIDE 0.9% 1000ML 1,000 ML IV SCH ×2 (01:14→22:23)
[2019-04-27 04:33] LABS: BASOPHILS % 0.2 % (0.0-1.0); EOSINOPHILS % 0.1 % (0.0-6.0); HEMOGLOBIN 7.2 g/dL (12.0-16.0); LYMPHOCYTES # (AUTO) 2.6 (1.0-3.2); LYMPHOCYTES % 14.7 % (18.0-39.1); MEAN CORPUSCULAR HEMOGLOBIN 30.1 pg (28-32); MEAN CORPUSCULAR HGB CONC 31.3 g/dL (31-35); MEAN CORPUSCULAR VOLUME 96.2 fL (81-99); MONOCYTES # (AUTO) 1.6 (0.2-0.8); MONOCYTES % 9.2 % (4.4-11.3); NEUTROPHILS # (AUTO) 13.3 (2.1-6.9); PLATELET COUNT 344 x10e3/uL (140-360); RED BLOOD COUNT 2.39 x10e6/uL (3.6-5.1); RED CELL DISTRIBUTION WIDTH 16.1 % (11.7-14.4)
[2019-04-27 04:52] LABS: ANION GAP 9.5 mmol/L (8-16); BLOOD UREA NITROGEN 7 mg/dL (7-26); BUN/CREATININE RATIO 12 (6-25); CALCIUM 7.7 mg/dL (8.4-10.2); CARBON DIOXIDE 29 mmol/L (22-29); CHLORIDE 105 mmol/L (98-107); CREATININE, SERUM 0.58 mg/dL (0.57-1.11); EST GLOMERULAR FILTRATION RATE > 60 ML/MIN (60-); GLUCOSE 134 mg/dL (74-118); POTASSIUM 3.5 mmol/L (3.5-5.1); SODIUM 140 mmol/L (136-145)
--- NOTE | 2019-04-27 05:02 | NUR ---
K+ 3.5. Called to Dr. Milligan. Orders given for KCL runs 40 mEq.
[2019-04-27] MEDS ORDERED: POTASSIUM CHLORIDE 20MEQ/100ML 200 ML IV ONE (05:15)
--- NOTE | 2019-04-27 07:06 | Diagnostic Imaging Report ---
EXAMINATION: CHEST SINGLE (PORTABLE) INDICATION: ^pna ^[id number] ^0530 COMPARISON: 04/26/2019 FINDINGS: AP view TUBES and LINES: Stable nasogastric tube, right IJ central line, and right chest tubes. LUNGS: Further worsening of right lung aeration. Persistent mediastinal shift to the right. PLEURA: No visible pneumothorax. Small right pleural effusion HEART AND MEDIASTINUM: The cardiomediastinal silhouette is obscured. BONES AND SOFT TISSUES: No acute osseous lesion. Calcified bilateral breast implants. UPPER ABDOMEN: No free air under the diaphragm. IMPRESSION: Further worsening of right lung aeration or increased hazy opacification, representing increased atelectasis and/or pneumonia. Signed by: Dr. Vinayak Ceballos MD on 04/27/2019 7:03 AM
[2019-04-27] MEDS: IPRATROPIUM BROMIDE 0.02% 2.5 ML NEB NEB SCH ×4 (07:25→19:04)
[2019-04-27] MEDS: LEVALBUTEROL HCL SOLN NEBU 0.63 MG/3 ML NEB INH SCH ×4 (07:25→19:04)
[2019-04-27] MEDS: CLONAZEPAM 0.5 MG TAB PO SCH (08:48)
[2019-04-27] MEDS: PANTOPRAZOLE 40 MG 10ML VIAL IV SCH (08:48)
[2019-04-27] MEDS: NYSTATIN 15 GM POWDER UD BTL TOP SCH ×2 (08:48→17:14)
[2019-04-27] MEDS: FLUCONAZOLE 200 MG/100 ML 100 ML IV SCH (12:27)
[2019-04-27] MEDS: METRONIDAZOLE 500MG/NS 100ML 100 ML IV SCH ×2 (14:55→22:23)
--- NOTE | 2019-04-27 19:21 | NUR ---
Report received. Assumed care. Assessment done. See interventions. 2L NC with sats 99-100%. IV NS @ 60ml/hr. SCDs in place.
--- NOTE | 2019-04-27 21:30 | NUR ---
Cleaned for small liquid stool.
[2019-04-27] MEDS: QUETIAPINE FUMARATE 25 MG TAB PO SCH (22:23)
[2019-04-27] MEDS: VANCOMYCIN 1GM/NS 250 ML 250 ML IV SCH (22:23)
[2019-04-27] MEDS: LORAZEPAM INJ 2 MG/ML VIAL IV PRN (22:44)
[2019-04-28] VITALS (25 sets, daily range): BP systolic 81–138; BP diastolic 38–70
[2019-04-28] MEDS: PIPER-TAZ 3.375 GM 50 ML IV SCH ×4 (00:15→18:40)
--- NOTE | 2019-04-28 03:39 | NUR ---
Lots of secretions. Weak cough. NT suctioned for mod amt thick yellow secretions. Increased O2 to 8L.
[2019-04-28] MEDS: METRONIDAZOLE 500MG/NS 100ML 100 ML IV SCH ×3 (06:00→22:01)
[2019-04-28] MEDS: IPRATROPIUM BROMIDE 0.02% 2.5 ML NEB NEB SCH ×4 (07:25→19:28)
[2019-04-28] MEDS: LEVALBUTEROL HCL SOLN NEBU 0.63 MG/3 ML NEB INH SCH ×4 (07:25→19:28)
[2019-04-28] MEDS: HYDROMORPHONE 2MG/ML 2 MG/ML ML IV PRN ×4 (07:54→23:38)
--- NOTE | 2019-04-28 08:49 | Progress Note ---
DATE: 04/28/2019 SUBJECTIVE: The patient is currently in for empyema, pleural effusion, status post chest tube placement. Currently, the patient has NG feeding going. The patient failed MBS and has been started on NG tube. Currently, pain is controlled. MEDICINES: She is on fluconazole, ipratropium, lorazepam, metronidazole, pantoprazole, Zosyn, quetiapine, and vancomycin. OBJECTIVE: VITAL SIGNS: Temperature is 98.8, pulse is 70, respirations of 24, blood pressure is 93/40, pulse oximetry of 100%. She is on 6 L of nasal cannula. GENERAL: The patient has had mild bowel movements with the tube feed. She is on Glucerna at this time. HEENT: Normocephalic, atraumatic. NG tube in place. Nasal cannula in place. CVS: S1, S2 normal. Regular rate and rhythm. ABDOMEN: Nontender nondistended. CHEST: Two chest tubes from the right chest wall. Decreased air entry into right lung base. EXTREMITIES: No clubbing, no cyanosis, no edema. LABORATORY [place]: [place] [address], hemoglobin 7.2, hematocrit of 23.0, neutrophil count is 75. Microbiology, blood cultures, no growth. Gram stain from the bronchial washings shows Laurel. Urine culture is negative. Blood cultures again negative. IMAGING STUDIES: Last chest x-ray was done yesterday showed further worsening of the right lung, aeration of increased opacification representing atelectasis or pneumonia. ASSESSMENT: 1. Empyema, pleural effusion, status post chest tube placement. 2. Chronic obstructive pulmonary disease exacerbation, continue with steroids. 3. Pneumonia. 4. History of myocardial infarction, coronary artery disease. 5. Failed MBS with likelihood of aspiration. PLAN: Continue on antibiotics. White count is still seen elevated. We will check a CBC in the morning. Continue monitoring her vital signs and also BMP. Chest tube to be continued. Plan is to keep the patient in the ICU. Further recommendation per clinical course. Chest x-ray will be done tomorrow and CBC and BMP will be followed on a regular basis. Today, the patient will have nerve stimulation for her swallow. Further recommendation per clinical course. The patient is also on Flagyl for Laurel. MD JIAN Leary/MODL /[id number]
[2019-04-28 09:03] LABS: BASOPHILS % 0.2 % (0.0-1.0); EOSINOPHILS # (AUTO) 0.3 (0.0-0.4); EOSINOPHILS % 2.5 % (0.0-6.0); LYMPHOCYTES # (AUTO) 1.5 (1.0-3.2); LYMPHOCYTES % 11.7 % (18.0-39.1); MEAN CORPUSCULAR HEMOGLOBIN 30.5 pg (28-32); MEAN CORPUSCULAR HGB CONC 31.9 g/dL (31-35); MEAN CORPUSCULAR VOLUME 95.5 fL (81-99); MONOCYTES # (AUTO) 1.3 (0.2-0.8); MONOCYTES % 9.5 % (4.4-11.3); NEUTROPHILS # (AUTO) 9.8 (2.1-6.9); NEUTROPHILS % 74.9 % (38.7-80.0); PLATELET COUNT 326 x10e3/uL (140-360); RED BLOOD COUNT 2.23 x10e6/uL (3.6-5.1); RED CELL DISTRIBUTION WIDTH 16.4 % (11.7-14.4)
[2019-04-28 09:11] LABS: HEMATOCRIT 21.3 % (34.2-44.1)
[2019-04-28 09:12] LABS: HEMOGLOBIN 6.8 g/dL (12.0-16.0)
[2019-04-28 09:23] LABS: ANION GAP 10.2 mmol/L (8-16); BLOOD UREA NITROGEN < 5 mg/dL (7-26); CALCIUM 7.9 mg/dL (8.4-10.2); CARBON DIOXIDE 29 mmol/L (22-29); CHLORIDE 105 mmol/L (98-107); CREATININE, SERUM 0.49 mg/dL (0.57-1.11); EST GLOMERULAR FILTRATION RATE > 60 ML/MIN (60-); GLUCOSE 104 mg/dL (74-118); POTASSIUM 3.2 mmol/L (3.5-5.1); SODIUM 141 mmol/L (136-145)
[2019-04-28] MEDS: NYSTATIN 15 GM POWDER UD BTL TOP SCH (09:23)
[2019-04-28] MEDS: PANTOPRAZOLE 40 MG 10ML VIAL IV SCH (09:24)
[2019-04-28 09:38] LABS: BUN/CREATININE RATIO 10 (6-25)
[2019-04-28] MEDS ORDERED: SODIUM CHLORIDE 0.9% 250ML 250 ML IV ONE (10:30)
[2019-04-28] MEDS: SODIUM CHLORIDE 0.9% 1000ML 1,000 ML IV SCH (10:34)
[2019-04-28] MEDS ORDERED: POTASSIUM CHLORIDE 20MEQ/100ML 200 ML IV ONE ×2 (10:45→14:15)
--- NOTE | 2019-04-28 10:55 | NUR ---
ASSESSMENT: Spiritual concern Follow-up visit. Pt's at bedside. Pt's cautiously hopeful. Intervention: Provided empathic listening. Facilitated illness review. Provided prayer. Outcome: Will continue to follow as able. DAVID CHARLES Water Reclamation Systems Operator Spiritual Care Department O: [phone] Pager: [phone] ([phone] number calling from)
[2019-04-28] MEDS: FLUCONAZOLE 200 MG/100 ML 100 ML IV SCH (11:00)
--- NOTE | 2019-04-28 11:28 | NUR ---
WOUND CARE CONSULTATION - INITIAL EVALUATION Patient admitted for SOB, PNA, Pleural Effusion. HX: COPD, HTN, Hyperlipidemia, Anxiety, Early Dementia, Smoker. LABS: WBC13.1 HGB6.8 HCT21.3 NEUT%74.9 FRO535 ALB2.0 Right Side Chest Tube 04/18/19 by Stephenie Wang Brochnoscopy - 04/18/19 -by- Girish Swain J. Wound Care Consulted for perineal rash evaluation and treatment. PATIENT VISIT: Patient pleasantly confused, Calm and Cooperative with at bedside - C/O burning sensation at perirectal area. - Beet redness/ excoriated perirectal area/ erosion. Noted order for Nystatin BID. Patient having runny stools. No pustules, no itching, Excoriation consistent with erosion from incontinence. No rash identified. No SS indicative of yeast. - Area cleansed with warm water and bar of soap. Immediate improvement in redness noted, then applied topical barrier creams. Gamaliel Score [address] No Pressure Ulcers identified during visit. Patient able to turn with 1 person assist, Min A. Sukhwinder Heel Protectors in place. IMPRESSION: Rosario-rectal, Bilateral Groin- Incontinence Related Dermatitis: RECOMMENDATION: Discontinue Nystatin Powder. 1. Rosario-rectal, Bilateral Groin- Incontinence Related Dermatitis: - After each incontinence episode, Wash area with Mild Soap and Water, then pat dry thoroughly. - Apply Lantiseptic Cream q12H and PRN soiling. Thank you for consulting with Wound Care. Addendum: 04/28/19 at 1140 by Edwardo Olson RN Amended: Links added.
[2019-04-28] MEDS: LANOLIN 4.5 OZ OINT TP SCH ×2 (14:02→22:45)
[2019-04-28] MEDS ORDERED: SIMETHICONE 80 MG CHEW ONE (14:08)
--- NOTE | 2019-04-28 14:43 | NUR ---
ST NOTE: Spoke with RN re: NMES to treat dysphagia, ST needs order to be placed prior to initiating treatment. Checked pt status, and pt out of room for procedure. Left note for RN. Will continue to follow
[2019-04-28] MEDS ORDERED: SODIUM CHLORIDE 0.9% 250ML 250 ML ONE ×2 (15:04→22:53)
--- NOTE | 2019-04-28 18:37 | Diagnostic Imaging Report ---
EXAM: CT Chest without contrast INDICATION: Shortness of breath. COMPARISON: CT chest 04/07/2019, chest radiograph 04/27/2019. TECHNIQUE: Chest was scanned utilizing a multidetector helical scanner from the lung apex through the level of the adrenal glands without administration of IV contrast. Coronal and sagittal reformations were obtained. Routine protocol was performed. RADIATION DOSE: Total DLP: 349.3 mGy*cm Dose modulation, iterative reconstruction, and/or weight based adjustment of the mA/kV was utilized to reduce the radiation dose to as low as reasonably achievable. COMPLICATIONS: None FINDINGS: LINES/ TUBES: Enteric tube courses into the stomach, the tip is not seen. Interval placement of a right anterior chest tube which courses to the lung apex and placement of a right posterior chest tube which courses to the upper pleura. A right arm PICC terminates in the upper SVC, and a right IJ non tunneled central venous catheter terminates at the cavoatrial junction. LUNGS AND AIRWAYS/PLEURA: Severe emphysematous changes of the lungs. Placement of 2 right-sided chest tubes as above into the previously noted multiloculated right pleural effusion. Compared to the prior CT, there has been interval decrease in loculated right effusion with a small residual loculated effusion along the medial aspect of the right mid pleura on series 2, image 53. There is dependent consolidative in the right lung, most pronounced in the lower lobe, likely representing a combination of atelectasis and pneumonia. There is also patchy dependent opacity in the right upper lobe and middle lobe. There is hyperexpansion of the left lung. Small layering left pleural effusion with patchy atelectasis. Diffuse opacity limits evaluation for pulmonary nodule. There is mucoid impaction within the distal right lower lobe bronchi. HEART AND MEDIASTINUM: The thyroid gland is normal. There is rightward mediastinal shift. Again noted are mildly enlarged mediastinal lymph nodes, for example a right paratracheal lymph node, measuring up to 1.3 cm on series 2, image 54 and right hilar lymph node, measuring up to 1.2 cm on image 60. Interval development of a right upper mediastinal hematoma which abuts the right lower trachea, measuring up to 2.0 cm in thickness on series 2, image 22 (31 HU). Atherosclerotic calcifications of the thoracic aorta and coronary arteries. No evidence of cardiomegaly or pericardial effusion. Small hiatal hernia. UPPER ABDOMEN: Limited non-contrast views of the upper abdomen are unremarkable. BONES: No acute osseous abnormality. No suspicious lytic or blastic lesions. SOFT TISSUES: Bilateral breast implants. IMPRESSION: Multiple lines and tubes as above including two right sided chest tubes. Drainage of multiloculated right pleural effusion with small residual loculated component along the medial right midlung. Persistent mediastinal lymphadenopathy, which may be reactive. Follow-up chest CT is recommended in 3 months to exclude underlying malignancy. Multifocal consolidative dependent opacity in the right lung likely represents a combination of atelectasis and pneumonia. Compared to the prior CT, there is been interval development of a small upper mediastinal hematoma as above. Signed by: Dr. Javier Segura MD on 04/28/2019 6:33 PM
[2019-04-28] MEDS ORDERED: SODIUM CHLORIDE 0.9% 250ML 500 ML ONE (19:19)
[2019-04-28] MEDS: ACETAMINOPHEN 325 MG/10 ML UDC NG PRN (20:29)
[2019-04-28] MEDS: QUETIAPINE FUMARATE 25 MG TAB PO SCH (21:00)
[2019-04-28] MEDS: VANCOMYCIN 1GM/NS 250 ML 250 ML IV SCH (22:01)
[2019-04-28] MEDS: LORAZEPAM INJ 2 MG/ML VIAL IV PRN (22:02)
[2019-04-28] MEDS: FUROSEMIDE INJ 10 MG/ML 2 ML VIAL IV SCH (22:25)
[2019-04-29] VITALS (23 sets, daily range): BP systolic 100–133; BP diastolic 38–72
[2019-04-29] MEDS: PIPER-TAZ 3.375 GM 50 ML IV SCH ×3 (00:01→12:00)
[2019-04-29] MEDS: IPRATROPIUM BROMIDE 0.02% 2.5 ML NEB NEB SCH ×4 (00:50→19:32)
[2019-04-29] MEDS: LEVALBUTEROL HCL SOLN NEBU 0.63 MG/3 ML NEB INH SCH ×4 (00:50→19:32)
[2019-04-29] MEDS: FUROSEMIDE INJ 10 MG/ML 2 ML VIAL IV SCH (01:45)
[2019-04-29] MEDS: HYDROMORPHONE 2MG/ML 2 MG/ML ML IV PRN ×4 (03:14→23:51)
[2019-04-29] MEDS: LORAZEPAM INJ 2 MG/ML VIAL IV PRN (04:51)
[2019-04-29] MEDS: SODIUM CHLORIDE 0.9% 1000ML 1,000 ML IV SCH ×2 (04:51→20:46)
[2019-04-29] MEDS: METRONIDAZOLE 500MG/NS 100ML 100 ML IV SCH ×3 (05:00→21:33)
[2019-04-29 05:12] LABS: BASOPHILS % 0.3 % (0.0-1.0); EOSINOPHILS # (AUTO) 0.4 (0.0-0.4); EOSINOPHILS % 2.7 % (0.0-6.0); HEMATOCRIT 34.1 % (34.2-44.1); LYMPHOCYTES # (AUTO) 1.9 (1.0-3.2); LYMPHOCYTES % 14.4 % (18.0-39.1); MEAN CORPUSCULAR HGB CONC 33.1 g/dL (31-35); MONOCYTES # (AUTO) 1.3 (0.2-0.8); MONOCYTES % 9.8 % (4.4-11.3); NEUTROPHILS # (AUTO) 9.6 (2.1-6.9); NEUTROPHILS % 71.4 % (38.7-80.0); RED CELL DISTRIBUTION WIDTH 15.9 % (11.7-14.4)
[2019-04-29 05:16] LABS: RED BLOOD COUNT 3.77 x10e6/uL (3.6-5.1)
[2019-04-29 05:17] LABS: HEMOGLOBIN 11.3 g/dL (12.0-16.0); MEAN CORPUSCULAR VOLUME 90.5 fL (81-99); PLATELET COUNT 355 x10e3/uL (140-360)
[2019-04-29 05:35] LABS: ANION GAP 9.1 mmol/L (8-16); BLOOD UREA NITROGEN 5 mg/dL (7-26); BUN/CREATININE RATIO 9 (6-25); CALCIUM 8.6 mg/dL (8.4-10.2); CARBON DIOXIDE 36 mmol/L (22-29); CHLORIDE 97 mmol/L (98-107); CREATININE, SERUM 0.55 mg/dL (0.57-1.11); EST GLOMERULAR FILTRATION RATE > 60 ML/MIN (60-); GLUCOSE 97 mg/dL (74-118); POTASSIUM 3.1 mmol/L (3.5-5.1); SODIUM 139 mmol/L (136-145)
--- NOTE | 2019-04-29 06:05 | Diagnostic Imaging Report ---
EXAMINATION: CHEST SINGLE (PORTABLE) INDICATION: Pneumonia. COMPARISON: 04/28/2019 FINDINGS: AP view TUBES and LINES: Stable nasogastric tube with distal tip not included, right IJ central line, and multiple right-sided chest tubes. LUNGS: No change in increased density and the mid to lower right thorax. Patchy density in the left lower lobe suggestive of atelectasis, also unchanged. PLEURA: No visible pneumothorax. Small right pleural effusion HEART AND MEDIASTINUM: The cardiomediastinal silhouette is obscured. BONES AND SOFT TISSUES: No acute osseous lesion. Calcified bilateral breast implants. UPPER ABDOMEN: No free air under the diaphragm. IMPRESSION: Stable examination. No interval change. Signed by: Dr. Christian Keita M.D. on 04/29/2019 6:02 AM
[2019-04-29] MEDS ORDERED: POTASSIUM CHLORIDE 20MEQ/100ML 200 ML IV ONE (07:00)
[2019-04-29] MEDS: PANTOPRAZOLE 40 MG 10ML VIAL IV SCH (09:00)
--- NOTE | 2019-04-29 09:39 | Progress Note ---
DATE: 04/29/2019 SUBJECTIVE: The patient had a copious amount of diarrhea yesterday. The patient has a rectal tube placed in. The patient was confused, also sleepless. Alprazolam 0.25 was given to the patient. The patient has ever since slept, comfortable, but pleasantly confused today. The patient is alert otherwise. OBJECTIVE: VITAL SIGNS: Temperature is 99.8, pulse of 89, respirations of 20, blood pressure is 102/49, pulse oximetry on 4 L of nasal cannula. The patient is on NG tube feeds Glucerna 1.5. MEDICATIONS: She is on Flagyl, Zosyn, and vancomycin for antibiotics. The patient also on fluconazole for antifungal. Levalbuterol treatments and also hydromorphone for pain, which she has three doses last night. PHYSICAL EXAMINATION: HEENT: Normocephalic, atraumatic. Pupils are reactive to light and accommodation. CVS: S1, S2. Tachycardic. ABDOMEN: Nontender, nondistended. EXTREMITIES: No clubbing, no cyanosis, no edema. LABORATORY VALUES: [place] [address] down from yesterday, hemoglobin 11.3, hematocrit of 34.2 status post transfusion, platelet count is 355. Chemistries; sodium of 139, potassium 3.1, BUN 5, creatinine 0.55. Toxicology, vancomycin trough last time was 8.4. Microbiology, same with Laurel parapsilosis. ASSESSMENT: 1. Empyema, pleural effusion status post chest tube placement x2. The patient will have one of them removed. 2. Chronic obstructive pulmonary disorder. Continue with steroid. 3. Nutrition. Continue with nutrition supplementation with Glucerna. 4. Pneumonia. Continue with antibiotic. Three antibiotics on board and also Diflucan on board. 5. Failed MBS with likelihood of aspiration. Continue with neuromuscular stimulation. 6. History of myocardial infarction, coronary artery disease. Continue with beta blockade. Further recommendation per clinical course. We will continue to monitor the patient. MD JIAN Leary/ÁNGEL /[id number]
[2019-04-29] MEDS: LANOLIN 4.5 OZ OINT TP SCH ×2 (11:43→23:18)
[2019-04-29] MEDS: FLUCONAZOLE 200 MG/100 ML 100 ML IV SCH (11:50)
--- NOTE | 2019-04-29 15:35 | Diagnostic Imaging Report ---
PROCEDURE: X-RAY MODIFIED BARIUM SWALLOW COMPARISON: None. INDICATION: Status post intubation. Radiation Details: Fluoroscopy time: 1.8 minutes Cumulative dose: 8.6 mGy Dose area product: 2.8 Gy.cm2 DISCUSSION: Fluoroscopic examination was performed in conjunction with speech pathology during swallowing a variety of thin and thick liquid consistencies. Provided images demonstrate laryngeal penetration and aspiration. Severe vallecular and piriform sinus residue is noted. CONCLUSION: Modified barium swallow demonstrating laryngeal penetration and aspiration. Please refer to the speech pathology report for further details. Signed by: Dr. Javier Segura MD on 04/29/2019 3:32 PM
--- NOTE | 2019-04-29 16:14 | NUR ---
Nutrition Intervention Note RD Recommendation(s) for Physician: - Current TF order of Glucerna 1.5 @50mL/hr providing 1800kcal, 99g protein, 911mL water - Water flushes per MD discretion - Check daily labs, GI tolerance, weight Plan of Care: RD following, monitoring for tolerance and adequacy, TF rec Nutrition reason for involvement: Follow up RD Assessment 04/29: Pt was discussed during AM rounds. Per RN, pt was having diarrhea yesterday. Rectal tube has been placed. Currently on IV abx. TF was well tolerated at 30mL/hr. Communicated TF goal rate with LEONORA Talbert. Will continue to monitor and follow. 04/24: Pt was discussed during AM rounds. TF was stopped after extubation. On nasal canula. Pending swallow evaluation. Off sedation. Pt is awake and alert. Will continue to monitor and follow. 04/21: Pt was discussed during AM rounds. S/p chest tube placement. Remained intubated and ventilated. Currently on NG tube feed with Glucerna 1.5 @40mL/hr; tolerating well per RN. Pt had multiple liquid BM today after Dulcolax was given. Will continue to monitor and follow. 04/17: 74yo F, who was admitted for PNA. Visited pt in the room. IVF @100mL/hr; Fentanyl. Per , pt has had good appetite [employer]. In the last 2 weeks, noticed that pt was choking on foods several times while eating too fast. On her last doctors visit in February 2019, pt weighted at 119lbs; no recent weight loss noted. At home, pt was bedbound and required O2 24/7. Per LEONORA Trevizo, planned for chest tube placement today and bronchoscopy tomorrow. TF will not be started until the procedures were done. Will continue to monitor and follow. Principal Problems/Diagnoses: 1. Acute pneumonia. 2. Empyema. PMH: dementia, borderline DM(per , no taking any meds), anxiety, HTN, PAD, COPD, HLD GI: abdomen soft, non-tender, liquid brown stool 04/29 Skin: no pressure wound noted Labs: 04/29: K 3.1 L, BUN 5 L, Creatinine 0.55 L 04/24 Ca 7.8 L (04/21) Glucose 134 H (04/17) reviewed Meds: protonix, NaCl, lasix Ht: 65in (verified with ) Wt: 128lbs; 134.31lb; 124.05lb; 129lb BMI: 21.3kg/m2 IBW: 125lb Malnutrition Evaluation (04/17) The patient does not meet criteria for a specified degree of malnutrition at this time. Will re-evaluate at follow-up as appropriate. Nutrition Prescription (Diet Order): Glucerna 1.5 @50mL/hr Estimated Nutritional Needs: Calories: 1160 1450kcal (20-25kcal/kg/d) Weight used: CBW Protein: 75 116g (1.3-2g/kg/d) Weight used: CBW Diet Adequacy: Not meeting calorie needs, not meeting protein needs Diet Education Needs Assessment: Diet education not indicated. Nutrition Care Level: mod Nutrition Diagnosis: Inadequate energy intake related to current medical status as evidenced by pt requiring EN as main source of nutrition. Goal: Patient will meet 75-100% of estimated needs by follow up Progress: Progressing Interventions: Composition, Rate, Route Monitoring/Evaluation: Total energy intake, Total protein intake, Formula/Solution, Weight change, Gastric tolerance, labs Signed: Aspen Mccormack, MS, RD, LD
--- NOTE | 2019-04-29 17:30 | NUR ---
Dr. Stephenie Grey at bedside and removed both chest tubes to right side and tolerated well by patient. Respirations are even and unlabored. Right flank chest tube sites covered with sterile gauze and sites secured with stitches in place and covered with tape. V/S are stable.
[2019-04-29] MEDS: CEFEPIME 1GM/NS 0.9% 50 ML 50 ML IV SCH (18:10)
[2019-04-29] MEDS: QUETIAPINE FUMARATE 25 MG TAB PO SCH (21:08)
[2019-04-29] MEDS: VANCOMYCIN 1GM/NS 250 ML 250 ML IV SCH (21:33)
[2019-04-30] VITALS (24 sets, daily range): BP systolic 114–155; BP diastolic 52–118
[2019-04-30] MEDS: IPRATROPIUM BROMIDE 0.02% 2.5 ML NEB NEB SCH ×4 (01:10→19:41)
[2019-04-30] MEDS: LEVALBUTEROL HCL SOLN NEBU 0.63 MG/3 ML NEB INH SCH ×4 (01:10→19:41)
[2019-04-30] MEDS: HYDROMORPHONE 2MG/ML 2 MG/ML ML IV PRN ×2 (05:24→14:00)
[2019-04-30] MEDS: CEFEPIME 1GM/NS 0.9% 50 ML 50 ML IV SCH ×2 (05:25→17:01)
[2019-04-30] MEDS: METRONIDAZOLE 500MG/NS 100ML 100 ML IV SCH ×3 (05:25→22:51)
--- NOTE | 2019-04-30 07:59 | Progress Note ---
DATE: 04/30/2019 SUBJECTIVE: The patient is here in the ICU for empyema. The patient yesterday had her chest tubes removed. Still has NG tube with nutritional supplement. The patient is currently pain free. Has gotten pain medications about 3 hours ago. MEDICATIONS: Cefepime, fluconazole, furosemide, hydromorphone as needed, ipratropium bromide. The patient is on levalbuterol, lorazepam as needed, Flagyl, pantoprazole, Seroquel and vancomycin. OBJECTIVE: VITAL SIGNS: Temperature is 99.1, pulse of 83, respirations of 20, blood pressure is 133/54, pulse oximetry of 97%. The patient is on 4 L nasal cannula. HEENT: Normocephalic, atraumatic. The patient has respiratory support with nasal cannula. NG tube in place. CVS: S1, S2. Tachy. ABDOMEN: Nontender, nondistended. EXTREMITIES: No clubbing, no cyanosis, and/or no edema. Tubes: NG tube, nasal cannula, and also patient has a rectal tube. LABORATORY VALUES: Yesterday's hemoglobin 11.3, again status post transfusion. Chemistries were normal except for potassium yesterday. ASSESSMENT: 1. Empyema, pleural effusions, status post chest tube placement, status post removal. 2. History of acute respiratory failure, status post extubation. 3. Chronic obstructive pulmonary disorder. Continue on albuterol and Atrovent treatments. 4. Nutrition. The patient is on Glucerna. 5. Pneumonia. Continue on antibiotic and also Diflucan for fungal infection isolated. 6. Failed MBS. Continue with neurostimulation. 7. History of myocardial infarction, history of coronary artery disease. Continue with CV medication. Further recommendation and clinical course, the patient is stable enough to be out of the ICU. Orders will be written to be transferred to [facility]. Further recommendation per clinical course. MD JIAN Leary/MODL /[id number]
[2019-04-30] MEDS: PANTOPRAZOLE 40 MG 10ML VIAL IV SCH (08:55)
[2019-04-30] MEDS: SODIUM CHLORIDE 0.9% 1000ML 1,000 ML IV SCH (12:34)
[2019-04-30] MEDS: FLUCONAZOLE 200 MG/100 ML 100 ML IV SCH (13:24)
--- NOTE | 2019-04-30 13:26 | NUR ---
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 Patient previously seen and consulted for incontinence related dermatitis. Area improving. RECOMMENDATION: Continue Current Treatment Plan. Addendum: 04/30/19 at 1326 by Edwardo Olson RN Amended: Links added.
[2019-04-30] MEDS: LANOLIN 4.5 OZ OINT TP SCH ×2 (14:51→23:45)
[2019-04-30] MEDS: LORAZEPAM INJ 2 MG/ML VIAL IV PRN (20:34)
[2019-04-30] MEDS: ACETAMINOPHEN 325 MG/10 ML UDC NG PRN (20:55)
[2019-04-30] MEDS: QUETIAPINE FUMARATE 25 MG TAB PO SCH (21:53)
[2019-04-30] MEDS: VANCOMYCIN 1GM/NS 250 ML 250 ML IV SCH (22:51)
[2019-05-01] VITALS (8 sets, daily range): BP systolic 109–139; BP diastolic 52–63
[2019-05-01] MEDS: LEVALBUTEROL HCL SOLN NEBU 0.63 MG/3 ML NEB INH SCH ×4 (00:14→20:30)
[2019-05-01] MEDS: IPRATROPIUM BROMIDE 0.02% 2.5 ML NEB NEB SCH ×4 (00:14→20:30)
--- NOTE | 2019-05-01 01:30 | NUR ---
Pt was moved to room 204. Receiving nurse Savita LEA. Respiratory Edis also in with the pt transfer. Called and notified spouse of the room change.
--- NOTE | 2019-05-01 01:30 | NUR ---
received pt from ICU to room 204, AASina2Edis RT in with pt, c/o of generalized pain, pain meds on board, bed in lowest and locked position, call light in reach
[2019-05-01] MEDS: LORAZEPAM INJ 2 MG/ML VIAL IV PRN ×2 (03:19→09:04)
[2019-05-01] MEDS: ACETAMINOPHEN 325 MG/10 ML UDC NG PRN ×2 (03:19→09:01)
[2019-05-01] MEDS: SODIUM CHLORIDE 0.9% 1000ML 1,000 ML IV SCH ×2 (05:14→21:54)
[2019-05-01] MEDS: CEFEPIME 1GM/NS 0.9% 50 ML 50 ML IV SCH ×2 (05:47→17:22)
--- NOTE | 2019-05-01 06:09 | NUR ---
ASSESSMENT: Spiritual concern Pt's continues to be hopeful and thankful. Pt's states his was moved from ICU earlier this morning and "thanked everybody in ICU" for caring for his . Intervention: Provided supportive, empathic listening. Outcome: Will continue to follow as able. DAVID CHARLES Coding Tech Spiritual Care Department O: [phone] Pager: [phone] ([phone] number calling from)
[2019-05-01] MEDS: METRONIDAZOLE 500MG/NS 100ML 100 ML IV SCH ×3 (06:34→22:06)
--- NOTE | 2019-05-01 07:00 | NUR ---
RECEIVED AM REPORT FROM RN. PT IS LYING IN BED RECEIVING BREATHING TREATMENT, NO S/S OF DISTRESS. TUBE FEEDING RUNNING AT 50ML/HR. IS AT THE BEDSIDE. CALL LIGHT WITHIN REACH, BED IN LOWEST POSITION, SIDE RAILS UP.
--- NOTE | 2019-05-01 07:25 | Progress Note ---
DATE: 05/01/2019 SUBJECTIVE: The patient has been transferred from ICU to the floor with telemetry. Currently confused, but by the bedside. The patient had vocal cord stimulation yesterday. The patient did better. Continuous feeds noticed and also the patient has a Carbone catheter and a rectal tube output noted. OBJECTIVE: VITAL SIGNS: Temperature is 97.0, has been afebrile for the last 48 hours, respirations of 18, blood pressure is 109/53, pulse oximetry of 95%. HEENT: Normocephalic, atraumatic. Pupils are reactive to light and accommodation. NG tube in place. O2 in place. CVS: S1, S2. Regular rate and rhythm. ABDOMEN: Nontender, nondistended. LUNGS: Positive for rhonchi on the right side. EXTREMITIES: No clubbing, no cyanosis and/or no edema. LABORATORY [place]: [place] [address] from 04/29, hemoglobin of 11.3, hematocrit of 34.1. Chemistries show a sodium of 139, potassium of 3.1 yesterday. Toxicology, vancomycin is 7.1. Coags are normal. ASSESSMENT: 1. Empyema, pleural effusion, status post chest tube and also removal of chest tube. The patient had a thoracotomy with decortication. 2. Chronic obstructive pulmonary disorder. 3. Nutrition. Continue on nutritional supplement. 4. Pneumonia. Continue with antibiotic. 5. Failed MBS. The patient has NG tube. 6. History of myocardial infarction, coronary artery disease and hypertension. The patient's medications reviewed. Continue current medication regimen. 7. The patient is on DVT prophylaxis and also on GI prophylaxis. Continue current care. We will continue to monitor the patient along with consultants. MD RICHIE LearyJ/MODL /[id number]
[2019-05-01 08:26] LABS: BASOPHILS % 0.4 % (0.0-1.0); EOSINOPHILS # (AUTO) 0.1 (0.0-0.4); EOSINOPHILS % 0.9 % (0.0-6.0); HEMOGLOBIN 9.8 g/dL (12.0-16.0); LYMPHOCYTES # (AUTO) 1.1 (1.0-3.2); LYMPHOCYTES % 12.8 % (18.0-39.1); MEAN CORPUSCULAR HEMOGLOBIN 30.7 pg (28-32); MEAN CORPUSCULAR HGB CONC 32.7 g/dL (31-35); MONOCYTES # (AUTO) 0.9 (0.2-0.8); MONOCYTES % 10.4 % (4.4-11.3); NEUTROPHILS # (AUTO) 6.4 (2.1-6.9); NEUTROPHILS % 74.8 % (38.7-80.0); PLATELET COUNT 308 x10e3/uL (140-360); RED BLOOD COUNT 3.19 x10e6/uL (3.6-5.1); RED CELL DISTRIBUTION WIDTH 16.4 % (11.7-14.4)
[2019-05-01 09:01] LABS: ALANINE AMINOTRANSFERASE 13 IU/L (0-55); ALBUMIN 1.8 g/dL (3.5-5.0); ALBUMIN/GLOBULIN RATIO 0.7 (0.8-2.0); ALKALINE PHOSPHATASE 68 IU/L (40-150); ANION GAP 6.4 mmol/L (8-16); BLOOD UREA NITROGEN 9 mg/dL (7-26); BUN/CREATININE RATIO 20 (6-25); CARBON DIOXIDE 32 mmol/L (22-29); CHLORIDE 105 mmol/L (98-107); CREATININE, SERUM 0.45 mg/dL (0.57-1.11); EST GLOMERULAR FILTRATION RATE > 60 ML/MIN (60-); GLUCOSE 113 mg/dL (74-118); POTASSIUM 3.4 mmol/L (3.5-5.1); SODIUM 140 mmol/L (136-145)
[2019-05-01] MEDS: PANTOPRAZOLE 40 MG 10ML VIAL IV SCH (09:04)
--- NOTE | 2019-05-01 09:50 | NUR ---
FLEXISEAL APPEARED TO BE LEAKING. DEFLATED AND REPOSITIONED TUBE. PT HAS LARGE RASH IN THE EVON AREA AND BUTTOCKS. THE SACRUM IS BLANCHABLE RED. PT WAS CLEANED BY WINDOW SHADE CUTTER AND MOUNTER AND BARRIER PASTE WAS APPLIED. WILL CONTINUE TO MONITOR
--- NOTE | 2019-05-01 10:18 | NUR ---
TUBE FEEDING BAG CHANGED AND FOOD RESUMED AT 50ML/HR. PT TOLERATING WELL
[2019-05-01] MEDS: LANOLIN 4.5 OZ OINT TP SCH ×2 (10:21→23:45)
[2019-05-01] MEDS: FLUCONAZOLE 200 MG/100 ML 100 ML IV SCH (11:40)
--- NOTE | 2019-05-01 12:15 | Diagnostic Imaging Report ---
EXAM: CHEST SINGLE (PORTABLE), AP Portable DATE: 05/01/2019 Time stamp on exam: 11:30 AM INDICATION: Shortness of breath COMPARISON: 04/29/2019 chest x-ray and 04/28/[address] FINDINGS: LINES/TUBES: Right IJ central line and endotracheal tube are in appropriate locations. There is also a right-sided PICC with its tip difficult to localize but extending into the SVC. Two right-sided chest tubes have been removed. LUNGS: Right basilar opacity/consolidation. Left lung is hyperexpanded PLEURA: No pneumothorax. Small residual right pleural effusion. HEART AND MEDIASTINUM: Shift of the cardiomediastinal silhouette to the right. BONES AND SOFT TISSUES: No acute findings. Calcified breast implants. IMPRESSION: 1. Status post removal of two right-sided chest tubes-no pneumothorax. 2. Shift of the mediastinum and persistent volume loss on the right with right basilar opacity unchanged. Signed by: Dr. Travon Knight DO on 05/01/2019 12:11 PM
--- NOTE | 2019-05-01 14:26 | NUR ---
Contacted Dr. Sanchez regarding DC plan. States he thinks pt will need LTAC. CM asked to start initiating LTAC referral since it may take a few days for insurance to approve. Dr. Sanchez said not yet.
[2019-05-01] MEDS ORDERED: ONDANSETRON HCL 4 MG ORAL DISINTEGRATING TAB PO PRN (15:00)
--- NOTE | 2019-05-01 17:23 | NUR ---
CHANGED PICC LINE DRESSING AND NEEDLESS PORTS.
--- NOTE | 2019-05-01 17:56 | NUR ---
CALLED DR. ROBERTS TO GET ORDER TO D/C IJ CENTRAL LINE. HE APPROVED
--- NOTE | 2019-05-01 19:27 | NUR ---
REMOVED PT'S IJ LINE, PT TOLERATED WELL. APPLIED PRESSURE FOR 5 MINUTES, NO BLEEDING FROM INSERTION SITE. APPLIED PRESSURE DRESSING WITH TEGADERM.
[2019-05-01] MEDS: QUETIAPINE FUMARATE 25 MG TAB PO SCH (22:06)
[2019-05-01] MEDS: VANCOMYCIN 1GM/NS 250 ML 250 ML IV SCH (22:40)
[2019-05-02] VITALS (10 sets, daily range): BP systolic 131–146; BP diastolic 61–74
[2019-05-02] MEDS: LEVALBUTEROL HCL SOLN NEBU 0.63 MG/3 ML NEB INH SCH ×4 (01:30→19:37)
[2019-05-02] MEDS: IPRATROPIUM BROMIDE 0.02% 2.5 ML NEB NEB SCH ×4 (01:30→19:37)
[2019-05-02] MEDS: CEFEPIME 1GM/NS 0.9% 50 ML 50 ML IV SCH ×2 (05:22→17:56)
[2019-05-02] MEDS: METRONIDAZOLE 500MG/NS 100ML 100 ML IV SCH ×3 (06:33→21:22)
--- NOTE | 2019-05-02 07:00 | NUR ---
RCD PT AT BED PT IS ALERT AND RESTING ON BED NO SIGNS PF ANY DISTRESS NOTED IV PATENT FAMILY AT BED SIDE BED LOW AND LOCKED CALL LIGHT IN REACH
--- NOTE | 2019-05-02 07:31 | Progress Note ---
DATE: 05/02/2019 SUBJECTIVE: This is a 74-year-old female, who comes in for empyema. The patient has been transferred out of the ICU. For chest tubes, the patient is still getting NG supplementation with Glucerna. Has a rectal tube and also a Carbone catheter. MEDICATIONS: The patient's medications remain the same. OBJECTIVE: VITAL SIGNS: Temperature is 97.6, pulse of 91, respirations of 18, blood pressure is 138/68, and pulse oximetry of 96%. HEENT: Normocephalic and atraumatic. NG tube in place. Also, nasal cannula in place. CVS: S1, S2 normal. LUNGS: Decreased air entry. Positive for rhonchi at the right side and crackles to the right side. ABDOMEN: Nontender and nondistended. EXTREMITIES: No clubbing, no cyanosis, or no edema. The patient is in air bed and also SCDs are placed and also patient has a heel protector. LABORATORY VALUES: The patient's white count is 8.52, hemoglobin of 9.8, and hematocrit 30.8. The patient's sodium is 140, potassium is 3.4, BUN of 9, creatinine 0.45, calcium of 8. IMAGING STUDIES: Chest x-ray done yesterday showed status post two chest tubes, shift of mediastinum, persistent volume loss of the right with right basilar opacities unchanged. ASSESSMENT: 1. Empyema, pleural effusion, status post chest tube, status post removal, status post decortication. 2. Chronic obstructive pulmonary disorder. 3. Nutrition. Continue with nutritional supplementation. 4. Swallow evaluation. Modified Barium Swallow to be done today again. We will continue with NG tube and nerve stimulation. 5. History of myocardial infarction, coronary artery disease, and hypertension. Continue with CV medications. 6. Deep venous thrombosis prophylaxis and Gastrointestinal prophylaxis. Continue care. LTAC will be ordered for the patient today. MD JIAN Leary/MODL /[id number]
[2019-05-02] MEDS: SODIUM CHLORIDE 0.9% 1000ML 1,000 ML IV SCH ×2 (09:00→14:34)
[2019-05-02] MEDS: PANTOPRAZOLE 40 MG 10ML VIAL IV SCH (09:00)
--- NOTE | 2019-05-02 10:36 | NUR ---
ORDER GIVEN FOR LTAC, SPOKE WITH SIGNED CHOICE FOR [facility], CALLED REP TO COME EVAL, WILL LET KNOW AUTH IS GAINED.
[2019-05-02] MEDS: FLUCONAZOLE 200 MG/100 ML 100 ML IV SCH (11:00)
[2019-05-02] MEDS: LANOLIN 4.5 OZ OINT TP SCH (11:45)
--- NOTE | 2019-05-02 19:04 | NUR ---
GLUCERNA 1.5 NOT AVAILABLE IN THE HOSPITAL PAGED AND NOTIFIED DR GUIDRY GOT NEW ORDER TO GLUCERNA 1.2 50 ML /HR
--- NOTE | 2019-05-02 19:08 | NUR ---
PT RESTING ON BED BED SIDE REPORT GIVEN TO ONCOMING NURSE
[2019-05-02] MEDS: ACETAMINOPHEN 325 MG/10 ML UDC NG PRN (20:53)
[2019-05-02] MEDS: QUETIAPINE FUMARATE 25 MG TAB PO SCH (20:53)
[2019-05-02] MEDS: VANCOMYCIN 1GM/NS 250 ML 250 ML IV SCH (22:00)
[2019-05-03] VITALS (7 sets, daily range): BP systolic 124–145; BP diastolic 58–81
[2019-05-03] MEDS: LANOLIN 4.5 OZ OINT TP SCH ×2 (00:43→11:45)
[2019-05-03] MEDS: IPRATROPIUM BROMIDE 0.02% 2.5 ML NEB NEB SCH ×4 (00:50→19:50)
[2019-05-03] MEDS: LEVALBUTEROL HCL SOLN NEBU 0.63 MG/3 ML NEB INH SCH ×4 (00:50→19:50)
[2019-05-03] MEDS: CEFEPIME 1GM/NS 0.9% 50 ML 50 ML IV SCH ×2 (05:20→17:14)
[2019-05-03] MEDS: METRONIDAZOLE 500MG/NS 100ML 100 ML IV SCH ×3 (05:59→22:35)
[2019-05-03 06:18] LABS: ANION GAP 9.8 mmol/L (8-16); BLOOD UREA NITROGEN 12 mg/dL (7-26); BUN/CREATININE RATIO 24 (6-25); CALCIUM 8.5 mg/dL (8.4-10.2); CARBON DIOXIDE 28 mmol/L (22-29); CHLORIDE 106 mmol/L (98-107); EST GLOMERULAR FILTRATION RATE > 60 ML/MIN (60-); GLUCOSE 119 mg/dL (74-118); POTASSIUM 3.8 mmol/L (3.5-5.1); SODIUM 140 mmol/L (136-145)
[2019-05-03] MEDS: VANCOMYCIN 1GM/NS 250 ML 250 ML IV SCH ×2 (07:00→19:35)
--- NOTE | 2019-05-03 07:00 | NUR ---
RCD PT AT BED PT IS ALERT AND ORIENTED AND RESTING ON BED NO SIGNS PF ANY DISTRESS NOTED IV PATENT BED LOW AND LOCKED CALL LIGHT IN REACH
[2019-05-03] MEDS: SODIUM CHLORIDE 0.9% 1000ML 1,000 ML IV SCH ×2 (07:14→23:54)
--- NOTE | 2019-05-03 07:26 | Progress Note ---
DATE: 05/03/2019 SUBJECTIVE: The patient is a 74-year-old female, who comes in with shortness of breath. Found to have empyema, status post decortication, doing better. Still has NG tube. The patient did not have a MBS study secondary to mechanical failure. The patient is currently stable. No complaints. No chest pain. No shortness of breath. Diarrhea still through the rectal tube. The patient is stable. OBJECTIVE: VITAL SIGNS: Temperature is 97.0, pulse of 76, respirations of 18, blood pressure is 145/63, and pulse oximetry of 95%. HEENT: Normocephalic, atraumatic. NG tube in place. O2 by nasal cannula in place. CVS: S1, S2 normal. Regular rate and rhythm. ABDOMEN: Nontender and nondistended. EXTREMITIES: No clubbing. No cyanosis. No edema. LUNGS: Positive for rhonchi on the right side and decreased entry on the right side. LABORATORY VALUES: CBC has been done since 05/01/2019, stable. Last hemoglobin is 9.8, hematocrit of 30.0. Chemistries, sodium of 140, potassium 3.8, BUN and creatinine of 12 and 0.50. Coags normal. The patient's microbiology, Laurel, Gram stain, and bronchial washing, otherwise all normal. IMAGING STUDIES: Last done on the , chest x-ray shows, status post removal of right chest tube, shift in the mediastinum with unchanged volume loss and persistent volume loss. ASSESSMENT: 1. Empyema, pleural effusion, status post chest tube, status post decortication. 2. Chronic obstructive pulmonary disorder. 3. History of myocardial infarction, coronary artery disease. 4. Nutritional status, on NG tube. Failed modified barium swallow. History of aspiration. 5. Continue with DVT prophylaxis and gastrointestinal prophylaxis. Medications, the patient are on Flagyl, cefepime, fluconazole, and vancomycin. The patient is getting levalbuterol and Atrovent treatment. Pantoprazole for GI prophylaxis. Further recommendation per clinical course. We will continue to monitor the patient. Modified barium swallow to be done Sunday, possible transfer to LTAC after the NG tube has been removed if modified barium swallow is passed. MD JIAN Leary/MODL /[id number]
[2019-05-03] MEDS: PANTOPRAZOLE 40 MG 10ML VIAL IV SCH (09:00)
--- NOTE | 2019-05-03 15:43 | NUR ---
Nutrition Intervention Note RD Recommendation(s) for Physician: - Resume TF order of Glucerna 1.5 @50mL/hr providing 1800kcal, 99g protein, 911mL water - Water flushes per MD discretion - Check daily labs, GI tolerance, weight - Check stool culture for diarrhea if medically appropriate - Rec Probiotics for gut health Plan of Care: RD following, monitoring for tolerance and adequacy, TF rec Nutrition reason for involvement: Follow up RD Assessment 05/03: Per RN Kelli, pt was tolerating TF with Glucerna 1.2 @50mL/hr as we ran out of Glucerna 1.5. No gastric residual noted. Pt continues to have some diarrhea. Will resume TF with Glucerna 1.5 as we have the formula available; communicated with LEONORA Pereira. Will continue to monitor and follow. 04/29: Pt was discussed during AM rounds. Per RN, pt was having diarrhea yesterday. Rectal tube has been placed. Currently on IV abx. TF was well tolerated at 30mL/hr. Communicated TF goal rate with LEONORA Talbert. Will continue to monitor and follow. 04/24: Pt was discussed during AM rounds. TF was stopped after extubation. On nasal canula. Pending swallow evaluation. Off sedation. Pt is awake and alert. Will continue to monitor and follow. 04/21: Pt was discussed during AM rounds. S/p chest tube placement. Remained intubated and ventilated. Currently on NG tube feed with Glucerna 1.5 @40mL/hr; tolerating well per RN. Pt had multiple liquid BM today after Dulcolax was given. Will continue to monitor and follow. 04/17: 74yo F, who was admitted for PNA. Visited pt in the room. IVF @100mL/hr; Fentanyl. Per , pt has had good appetite [employer]. In the last 2 weeks, noticed that pt was choking on foods several times while eating too fast. On her last doctors visit in February 2019, pt weighted at 119lbs; no recent weight loss noted. At home, pt was bedbound and required O2 24/7. Per LEONORA Trevizo, planned for chest tube placement today and bronchoscopy tomorrow. TF will not be started until the procedures were done. Will continue to monitor and follow. Principal Problems/Diagnoses: 1. Acute pneumonia. 2. Empyema. PMH: dementia, borderline DM(per , no taking any meds), anxiety, HTN, PAD, COPD, HLD GI: abdomen soft, non-tender, liquid brown stool 05/03 Skin: no pressure wound noted Labs: 05/03: Creatinine 0.50 L, Glucose 119 H 04/29: K 3.1 L, BUN 5 L, Creatinine 0.55 L 04/24 Ca 7.8 L (04/21) Glucose 134 H (04/17) reviewed Meds: protonix, NaCl, abx Ht: 65in (verified with ) Wt: 128lbs; 134.31lb; 124.05lb; 129lb; 130lb BMI: 21.3kg/m2 IBW: 125lb Malnutrition Evaluation (05/03) The patient does not meet criteria for a specified degree of malnutrition at this time. Will re-evaluate at follow-up as appropriate. Nutrition Prescription (Diet Order): Glucerna 1.2 @50mL/hr Estimated Nutritional Needs: Calories: 1160 1450kcal (20-25kcal/kg/d) Weight used: CBW Protein: 75 116g (1.3-2g/kg/d) Weight used: CBW Diet Adequacy: Not meeting calorie needs, not meeting protein needs Diet Education Needs Assessment: Diet education not indicated. Nutrition Care Level: low Nutrition Diagnosis: Inadequate energy intake related to current medical status as evidenced by pt requiring EN as main source of nutrition. Goal: Patient will meet 75-100% of estimated needs by follow up Progress: Progressing Interventions: Composition, Rate, Route Monitoring/Evaluation: Total energy intake, Total protein intake, Formula/Solution, Weight change, Gastric tolerance, labs Signed: Aspen Mccormack, MS, RD, LD
--- NOTE | 2019-05-03 19:00 | NUR ---
PT RESTING ON BED BED SIDE REPORT GIVEN TO ONCOMING NURSE
[2019-05-03] MEDS: QUETIAPINE FUMARATE 25 MG TAB PO SCH (20:20)
[2019-05-04] VITALS (9 sets, daily range): BP systolic 131–142; BP diastolic 60–73
[2019-05-04] MEDS: LANOLIN 4.5 OZ OINT TP SCH ×3 (00:38→23:45)
[2019-05-04] MEDS: LEVALBUTEROL HCL SOLN NEBU 0.63 MG/3 ML NEB INH SCH ×4 (03:00→19:22)
[2019-05-04] MEDS: IPRATROPIUM BROMIDE 0.02% 2.5 ML NEB NEB SCH ×4 (03:00→19:22)
[2019-05-04] MEDS: CEFEPIME 1GM/NS 0.9% 50 ML 50 ML IV SCH ×2 (05:50→18:00)
[2019-05-04 06:29] LABS: BASOPHILS % 0.4 % (0.0-1.0); EOSINOPHILS # (AUTO) 0.2 (0.0-0.4); EOSINOPHILS % 1.6 % (0.0-6.0); HEMATOCRIT 32.8 % (34.2-44.1); HEMOGLOBIN 10.3 g/dL (12.0-16.0); LYMPHOCYTES # (AUTO) 1.6 (1.0-3.2); LYMPHOCYTES % 15.3 % (18.0-39.1); MEAN CORPUSCULAR HEMOGLOBIN 29.9 pg (28-32); MEAN CORPUSCULAR HGB CONC 31.4 g/dL (31-35); MEAN CORPUSCULAR VOLUME 95.1 fL (81-99); MONOCYTES # (AUTO) 0.9 (0.2-0.8); MONOCYTES % 8.9 % (4.4-11.3); NEUTROPHILS # (AUTO) 7.7 (2.1-6.9); NEUTROPHILS % 73.1 % (38.7-80.0); PLATELET COUNT 292 x10e3/uL (140-360); RED BLOOD COUNT 3.45 x10e6/uL (3.6-5.1); RED CELL DISTRIBUTION WIDTH 16.2 % (11.7-14.4)
[2019-05-04] MEDS: METRONIDAZOLE 500MG/NS 100ML 100 ML IV SCH ×3 (06:38→22:06)
[2019-05-04] MEDS ORDERED: FLUCONAZOLE 200 MG/100 ML 100 ML IV SCH (06:45)
--- NOTE | 2019-05-04 06:46 | Progress Note ---
DATE: 05/04/2019 SUBJECTIVE: The patient is here for pleural effusion, pneumonia, COPD exacerbation, status post decortication, status post failed MBS with feeding tube in place and also a rectal tube for continuous diarrhea. Currently asymptomatic and is improving slowly, but steadily. MEDICATIONS: Include cefepime, furosemide, ipratropium, levalbuterol, lorazepam as needed, metronidazole, quetiapine at nighttime, and vancomycin. OBJECTIVE: VITAL SIGNS: Temperature is 96.8, pulse of 84, respirations of 16, blood pressure is 132/63, pulse oximetry of 96% on 3 L of oxygen. HEENT: Normocephalic, atraumatic. Lines in place. CVS: S1, S2 normal. Regular rate and rhythm. ABDOMEN: Soft, nontender, nondistended. EXTREMITIES: No clubbing, no cyanosis, no edema. LABORATORY VALUES: Today's are pending. Chemistries and CBCs are pending today. The patient's hemoglobin and hematocrit yesterday were 9.8 and 30.0. ASSESSMENT: 1. Empyema, pleural effusion, status post chest tube, status post decortication. 2. Chronic obstructive pulmonary disorder. 3. Anemia of chronic disease. 4. History of myocardial infarction. 5. History of needed nutrition with NG tube placement and failed barium swallow. The patient continues to need nutritional services, neuro stimulation after MBS has been instituted and is continued. The patient will have an MBS tomorrow again to determine the need of NG tube. Further recommendation on clinical course. An LTAC consult again has been done. MD JIAN Leary/MODL /[id number]
[2019-05-04 06:47] LABS: ALANINE AMINOTRANSFERASE 25 IU/L (0-55); ALBUMIN/GLOBULIN RATIO 0.6 (0.8-2.0); ALKALINE PHOSPHATASE 85 IU/L (40-150); ANION GAP 10.5 mmol/L (8-16); BLOOD UREA NITROGEN 12 mg/dL (7-26); BUN/CREATININE RATIO 26 (6-25); CALCIUM 8.4 mg/dL (8.4-10.2); CARBON DIOXIDE 30 mmol/L (22-29); CHLORIDE 103 mmol/L (98-107); CREATININE, SERUM 0.47 mg/dL (0.57-1.11); EST GLOMERULAR FILTRATION RATE > 60 ML/MIN (60-); GLUCOSE 121 mg/dL (74-118); POTASSIUM 3.5 mmol/L (3.5-5.1); SODIUM 140 mmol/L (136-145)
[2019-05-04] MEDS: VANCOMYCIN 1GM/NS 250 ML 250 ML IV SCH ×2 (07:00→20:22)
[2019-05-04] MEDS: PANTOPRAZOLE 40 MG 10ML VIAL IV SCH (09:00)
[2019-05-04] MEDS: FLUCONAZOLE 200 MG/100 ML 100 ML IV SCH (10:00)
[2019-05-04] MEDS: SODIUM CHLORIDE 0.9% 1000ML 1,000 ML IV SCH (16:34)
--- NOTE | 2019-05-04 18:43 | NUR ---
PT RESTING ON BED BED SIDE REPORT GIVEN TO ONCOMING NURSE
[2019-05-04] MEDS: QUETIAPINE FUMARATE 25 MG TAB PO SCH (21:38)
[2019-05-05] VITALS (9 sets, daily range): BP systolic 108–137; BP diastolic 53–67
[2019-05-05] MEDS: IPRATROPIUM BROMIDE 0.02% 2.5 ML NEB NEB SCH ×4 (01:32→19:40)
[2019-05-05] MEDS: LEVALBUTEROL HCL SOLN NEBU 0.63 MG/3 ML NEB INH SCH ×4 (01:32→19:40)
[2019-05-05] MEDS: CEFEPIME 1GM/NS 0.9% 50 ML 50 ML IV SCH ×2 (05:41→17:49)
[2019-05-05] MEDS: METRONIDAZOLE 500MG/NS 100ML 100 ML IV SCH ×3 (06:24→23:25)
--- NOTE | 2019-05-05 06:58 | Progress Note ---
DATE: 05/05/2019 SUBJECTIVE: The patient is here for pleural effusion, status post empyema, status post decortication, status post chest tube, nasal cannula, and also NG tube in place for nutrition. Medications to remain the same. The patient is to undergo MBS today to evaluate swallow again. If the patient passes scan, we will start with regular food, probably pureed, but if not, the patient will be approached and family will be approached about PEG tube placement. OBJECTIVE: VITAL SIGNS: Temperature is 98.2, pulse of 96, respirations of 18, blood pressure is 133/60, pulse oximetry of 94% on 3 L of oxygen. HEENT: Normocephalic, atraumatic. Pupils reactive to light and accommodation. CVS: S1 and S2 normal. Regular rate and rhythm. ABDOMEN: Nontender and nondistended. EXTREMITIES: No clubbing. No cyanosis. No edema. LUNGS: Positive for rhonchi on the right side. LABORATORY VALUES: Today's hemoglobin is 10.3 and hematocrit of 32.8 up from the last draw. Sodium and potassium are normal. BUN and creatinine 12 and 0.47. The rest of the labs within normal limits. MICROBIOLOGY: Laurel on Gram stain, some bronchial washing. ASSESSMENT: 1. Empyema and pleural effusion, status post decortication. 2. Chronic obstructive pulmonary disorder. 3. Anemia of chronic disease. 4. History of myocardial infarction. 5. History of chronic respiratory failure and history of acute respiratory failure with status post intubation and extubation. PLAN: MBS today. LTAC consult with LTAC eval and depending on the course, we will continue to monitor the patient. MD JIAN Leary/MODL /[id number]
--- NOTE | 2019-05-05 07:30 | NUR ---
Pt in bed with eyes open. Pt is aox1-2 at this time. Denies any pain. Ngtube to left nare in place and patent. Carbone catheter in place and draining light yellow clear urine at this time. Flexiseal in place with watery brown stool noted.
[2019-05-05] MEDS: VANCOMYCIN 1GM/NS 250 ML 250 ML IV SCH ×2 (08:18→21:51)
[2019-05-05] MEDS: PANTOPRAZOLE 40 MG 10ML VIAL IV SCH (08:18)
[2019-05-05] MEDS: FLUCONAZOLE 200 MG/100 ML 100 ML IV SCH (10:17)
[2019-05-05] MEDS: LANOLIN 4.5 OZ OINT TP SCH ×2 (12:00→23:45)
--- NOTE | 2019-05-05 13:58 | Diagnostic Imaging Report ---
Exam: Modified barium swallow History: Dysphagia with pneumonia Comparison: None available Findings: Modified barium swallow was performed in conjunction with Speech Pathology. Patient was administered varying different consistencies of barium impregnated meals/liquids. There is laryngeal penetration with thin, nectar, thick liquids and thin/thick puree and kym silent aspiration with all consistencies. Fluoroscopy time: 1.2 minutes Cumulative dose: 6.47 mGy Impression: Laryngeal penetration with aspiration. Signed by: Dr. Travon Knight DO on 05/05/2019 1:55 PM
--- NOTE | 2019-05-05 18:43 | NUR ---
Pt in bed. aox1-2 pt is confused at this time. Ngtube to left nare in place and patent. Pt continues on glucerna 1.2 @ 50ml/hr and well tolerated. Carbone catheter in place and draining light yellow clear urine. Family at the bedside.
--- NOTE | 2019-05-05 19:32 | NUR ---
Patient received lying in bed. at bedside. AAO x 2. HOB elevated. Tube feeding (Glucerna ) infusing at 50 cc/hr and NS at 60 cc / hr. Flexiseal in place draining loose dark stool. Carbone cath draining pale yellow urine. Fall precautions in place. Patient instructed to call for assistance when needed. Call light within reach.
[2019-05-05] MEDS: QUETIAPINE FUMARATE 25 MG TAB PO SCH (21:51)
[2019-05-06] VITALS (8 sets, daily range): BP systolic 124–149; BP diastolic 58–65
[2019-05-06] MEDS: LEVALBUTEROL HCL SOLN NEBU 0.63 MG/3 ML NEB INH SCH ×4 (01:05→19:35)
[2019-05-06] MEDS: IPRATROPIUM BROMIDE 0.02% 2.5 ML NEB NEB SCH ×4 (01:05→19:35)
[2019-05-06] MEDS: SODIUM CHLORIDE 0.9% 1000ML 1,000 ML IV SCH ×2 (01:54→19:13)
--- NOTE | 2019-05-06 05:30 | NUR ---
Patient's Flexiseal for stool management came off. New Flexiseal inserted. Patient tolerated well.
[2019-05-06] MEDS: METRONIDAZOLE 500MG/NS 100ML 100 ML IV SCH (05:45)
--- NOTE | 2019-05-06 06:06 | NUR ---
spoke to lab regarding results. dr mooney paged at time in regards to results. awaiting return phone call. primary nurse made aware.
--- NOTE | 2019-05-06 07:00 | NUR ---
Patient resting comfortably. Shift report given to oncoming nurse for continuity of care.
--- NOTE | 2019-05-06 07:30 | NUR ---
Pt received in bed. Aox1-2 to herself. Spoke with Dr. Sanchez this am and made him aware that pt failed MBS with multiple textures. Dr. Sanchez states he will be back later to speak to about pegtube placement. Ngtube to left nare with glucerna 1.2 at 50ml/hr and well tolerated.
[2019-05-06] MEDS: VANCOMYCIN 1GM/NS 250 ML 250 ML IV SCH (08:06)
[2019-05-06] MEDS: PANTOPRAZOLE 40 MG 10ML VIAL IV SCH (08:16)
[2019-05-06] MEDS: LANOLIN 4.5 OZ OINT TP SCH ×2 (11:45→23:45)
--- NOTE | 2019-05-06 13:52 | NUR ---
CM placed call to f/u on status of authorizaiton. We are pending insurance auth. Information is with insurance Staff Counsel, per Jennifer Tracy/Kulwinder BARR.
--- NOTE | 2019-05-06 13:56 | NUR ---
CM call to discuss authorization status. We are pending insurance auth. Information is with insurance Client Support Manager, per Jennifer Tracy/Kulwinder BARR.
--- NOTE | 2019-05-06 18:00 | NUR ---
Dr. Sanchez was here this afternoon to speak to concerning pegtube placement. Dr. Pravin Al was consulted for pegtube placement. Pt in bed with HOB elevated 30 degrees. Ngtube to left and tolerating feeding well. Carbone in place and draining light yellow clear urine. flexiseal in place with watery brown stool.
--- NOTE | 2019-05-06 19:30 | NUR ---
Patient received sitting up in bed. Family at bedside. AAO x 2. Patient had no complaints of pain. No signs of respiratory distress. HOB elevated. Tube feeding in progress. Telemetry, Flexiseal and dick catheter in place. Fall precautions implemented. Call light within reach.
--- NOTE | 2019-05-06 19:53 | Progress Note ---
DATE: 05/06/2019 SUBJECTIVE: The patient is status post decortication and chest tube for empyema. Failed MBS a second time. Recommendations on PEG tube. Discussed with family. The patient and family is agreeable for PEG tube right now. OBJECTIVE: VITAL SIGNS: Temperature is 99.3, pulse of 83, respirations of 17, blood pressure is 137/58. HEENT: Normocephalic, atraumatic. Pupils are reactive to light and accommodation. CVS: S1, S2 normal. Regular rate and rhythm. ABDOMEN: Nontender, nondistended. EXTREMITIES: No clubbing, no cyanosis, no edema. [place]: [place] [address], hemoglobin of 10.3, hematocrit of 32.8. Chemistries; sodium 140, potassium is 3.5. ASSESSMENT: 1. Empyema, pleural effusion, status post decortication. 2. Chronic obstructive pulmonary disorder, status post intubation for acute respiratory failure. 3. Anemia of chronic disease. 4. Failed swallow evaluation. We will need PEG tube for nutrition. 5. History of myocardial infarction and history of hypertension. PLAN: Consult Dr. Silva for PEG tube placement. Further recommendation per clinical course. LTAC evaluation has been done. MD JIAN Leary/MODL /[id number]
[2019-05-06] MEDS: QUETIAPINE FUMARATE 25 MG TAB PO SCH (21:55)
[2019-05-07] VITALS (9 sets, daily range): BP systolic 139–159; BP diastolic 60–73
--- NOTE | 2019-05-07 00:04 | NUR ---
Dr. Jennifer Al here to see patient. New order received to hold tube feeding pending obtaining consent from patient's for Peg tube placement.
[2019-05-07] MEDS: LEVALBUTEROL HCL SOLN NEBU 0.63 MG/3 ML NEB INH SCH ×4 (01:00→19:40)
[2019-05-07] MEDS: IPRATROPIUM BROMIDE 0.02% 2.5 ML NEB NEB SCH ×4 (01:00→19:40)
[2019-05-07 05:35] LABS: BASOPHILS % 0.5 % (0.0-1.0); EOSINOPHILS # (AUTO) 0.3 (0.0-0.4); EOSINOPHILS % 3.6 % (0.0-6.0); HEMATOCRIT 31.8 % (34.2-44.1); HEMOGLOBIN 10.2 g/dL (12.0-16.0); LYMPHOCYTES % 25.6 % (18.0-39.1); MEAN CORPUSCULAR HEMOGLOBIN 30.4 pg (28-32); MEAN CORPUSCULAR HGB CONC 32.1 g/dL (31-35); MEAN CORPUSCULAR VOLUME 94.9 fL (81-99); MONOCYTES % 12.3 % (4.4-11.3); NEUTROPHILS # (AUTO) 4.6 (2.1-6.9); NEUTROPHILS % 57.5 % (38.7-80.0); PLATELET COUNT 369 x10e3/uL (140-360); RED BLOOD COUNT 3.35 x10e6/uL (3.6-5.1); RED CELL DISTRIBUTION WIDTH 16.3 % (11.7-14.4)
[2019-05-07 05:48] LABS: ANION GAP 10.4 mmol/L (8-16); BLOOD UREA NITROGEN 10 mg/dL (7-26); BUN/CREATININE RATIO 22 (6-25); CALCIUM 8.4 mg/dL (8.4-10.2); CARBON DIOXIDE 29 mmol/L (22-29); CHLORIDE 102 mmol/L (98-107); CREATININE, SERUM 0.45 mg/dL (0.57-1.11); EST GLOMERULAR FILTRATION RATE > 60 ML/MIN (60-); GLUCOSE 100 mg/dL (74-118); POTASSIUM 3.4 mmol/L (3.5-5.1); SODIUM 138 mmol/L (136-145)
--- NOTE | 2019-05-07 06:43 | NUR ---
Patient / informed of upcoming surgical procedure (EGD and PEG tube placement) by Dr. Sanchez. Patient/ verbalized understanding. Disclosure and Consent form signed. Dr. Jennifer Al paged regarding signed consent and to obtain time for procedure. Awaiting call back.
--- NOTE | 2019-05-07 06:45 | NUR ---
As per Dr. Sanchez, its ok to discontinue use of Flexiseal. Patient's Flexiseal came off inadvertently and diarrhea has subsided.
--- NOTE | 2019-05-07 06:55 | NUR ---
Patient resting comfortably. Walking rounds done. Shift report given to oncoming nurse for continuity of care.
--- NOTE | 2019-05-07 07:05 | Progress Note ---
DATE: 05/07/2019 SUBJECTIVE: A 74-year-old female with a history of empyema, status post decortication, status post PEG tube, status post acute respiratory failure with intubation and status post extubation. Currently, the patient is anxious, scheduled for a PEG tube placement today. The patient is alert and oriented x3. PEG tube has been capped today. OBJECTIVE: VITAL SIGNS: Temperature is 98.1, pulse of 91, respirations of 20, blood pressure is 139/64, pulse oximetry of 93% on 3 L of oxygen. HEENT: Normocephalic and atraumatic. PEG tube in place. CVS: S1 and S2 normal. Regular rate and rhythm. ABDOMEN: Nontender, nondistended. LUNGS: Positive for rhonchi on the right side. Decreased breath sounds. EXTREMITIES: No clubbing, no cyanosis, no edema. LABORATORY VALUES: Today's white count of 7.97. Chemistries; sodium of 138, potassium 3.4. Coags are normal. The patient's last modified barium swallow, the patient did not pass. ASSESSMENT: 1. Empyema and pleural effusion, status post decortication. 2. Chronic obstructive pulmonary disorder. 3. Need of nutrition. PEG tube placement. 4. Failed modified barium swallow. 5. History of chronic respiratory failure, chronic obstructive pulmonary disease. 6. History of hypertension. PLAN: Plan is to do a PEG tube today. LTAC evaluation is on-board. Once the patient has a PEG tube, then we can go and transfer the patient to LTAC. Further recommendation per clinical course. The patient's by the bedside. Discussed the patient's care with him and is agreeable to the plan of PEG tube and signed a consent. MD RICHIE LearyJ/MODL /[id number]
--- NOTE | 2019-05-07 08:00 | NUR ---
PT VANC TROUGH 19.3. HOLDING VANCOMYCIN FOR THE UPDATE FROM DR. ROBERTS
--- NOTE | 2019-05-07 08:21 | NUR ---
PT OFF UNIT FOR PROCEDURE
--- NOTE | 2019-05-07 10:07 | NUR ---
PT BACK TO UNIT AFTER PROCEDURE. KEEP PT NPO PER DR.MAURICE BOOTH. OKAY TO USE PEG TUBE FOR MEDICINE AFTER 8 HRS AND FEEDING AFTER 24 HRS PER THE PT FAMILY AT BEDSIDE AND DENIES NEEDS AT THIS TIME.
[2019-05-07] MEDS: VANCOMYCIN 1GM/NS 250 ML 250 ML IV SCH (10:15)
[2019-05-07] MEDS: PANTOPRAZOLE 40 MG 10ML VIAL IV SCH (10:25)
[2019-05-07] MEDS: SODIUM CHLORIDE 0.9% 1000ML 1,000 ML IV SCH (10:49)
--- NOTE | 2019-05-07 10:55 | NUR ---
CALLED DR ROBERTS OFFICE PER DR. GUIDRY REGARDING THE ANTIBIOTICS UPDATE AND PT VANC TROUGH 19.3.
--- NOTE | 2019-05-07 11:11 | Operative Report ---
DATE OF PROCEDURE: 05/07/2019 SURGEON: Cuauhtemoc Al MD PROCEDURE: Esophagogastroduodenoscopy with PEG tube insertion. INDICATIONS FOR PROCEDURE: Oropharyngeal dysphagia, abnormal modified barium swallow. MEDICATIONS: The patient was done under MAC, please see anesthesiologist's note. PROCEDURE IN DETAIL: With the patient in the supine position, the flexible fiberoptic Olympus gastroscope was introduced into the esophagus under direct visualization without any difficulty. There was some patchy erythema noted in distal esophagus. The scope was then advanced with ease into the stomach traversing a small sliding hiatal hernia. The mucosa overlying the antrum and the body revealed some diffuse erythema. Pylorus was of normal contour and shape, it was intubated with ease and the scope was advanced all the way to the second portion of the duodenum. The scope was then withdrawn slowly and the mucosa overlying the proximal second portion and the duodenal bulb appeared to be within normal limits. The scope was then withdrawn back into the stomach and retroflexed and mucosa overlying the fundus and cardia appeared to be within normal limits. The scope was then straightened out and after delineation of a safe entry point through transabdominal illumination and external digital palpation, PEG tube insertion was carried out in the usual fashion. The scope was subsequently withdrawn after documenting a good position of the intragastric bumper. The patient tolerated the procedure well. IMPRESSION: 1. Distal esophagitis, mild. 2. Small sliding hiatal hernia. 3. Gastritis. 4. PEG tube insertion carried out in usual fashion. The patient tolerated the procedure well. G-tube to gravity in a Carbone bag x24 hours then can use. Abdominal binder so patient cannot dislodge G-tube. Cuauhtemoc Al MD [facility]/PATRICIAL /[id number] cc: Girish Sanchez MD
[2019-05-07] MEDS: LANOLIN 4.5 OZ OINT TP SCH ×2 (11:45→23:27)
--- NOTE | 2019-05-07 12:00 | NUR ---
PER DR. ROBERTS STOP VANCOMYCIN.
--- NOTE | 2019-05-07 13:55 | NUR ---
Spoke with Alysia Tracy for status update on LTAC referral. She received this message regarding referral "case is with MD, updated clinical faxed this morning by [facility] to [facility]"
--- NOTE | 2019-05-07 16:30 | NUR ---
CALLED DR GUIDRY OFFICE AND SPOKE TO TAMRA REGARDING PT DE LEON REMOVAL. NO NEW ORDERS RECEIVED
--- NOTE | 2019-05-07 16:36 | NUR ---
OKAY TO REMOVE HALEY PER DR. GUIDRY
--- NOTE | 2019-05-07 17:00 | NUR ---
DE LEON REMOVED PER THE ORDER. PT TOLERATED WELL. PT DENIED FURTHER NEEDS. FAMILY AT BEDSIDE.
--- NOTE | 2019-05-07 17:26 | NUR ---
Nutrition Intervention Note RD Recommendation(s) for Physician: - When PEG is ready to use, resume TF order of Glucerna 1.5 @50mL/hr providing 1800kcal, 99g protein, 911mL water - Water flushes per MD discretion - Check daily labs, GI tolerance, weight Plan of Care: RD following, monitoring for tolerance and adequacy, TF rec Nutrition reason for involvement: Follow up RD Assessment 05/07: Pt had PEG placement today. TF will resume in 24hr. Will continue to monitor and follow. 05/03: Per RN Kelli, pt was tolerating TF with Glucerna 1.2 @50mL/hr as we ran out of Glucerna 1.5. No gastric residual noted. Pt continues to have some diarrhea. Will resume TF with Glucerna 1.5 as we have the formula available; communicated with LEONORA Pereira. Will continue to monitor and follow. 04/29: Pt was discussed during AM rounds. Per RN, pt was having diarrhea yesterday. Rectal tube has been placed. Currently on IV abx. TF was well tolerated at 30mL/hr. Communicated TF goal rate with LEONORA Talbert. Will continue to monitor and follow. 04/24: Pt was discussed during AM rounds. TF was stopped after extubation. On nasal canula. Pending swallow evaluation. Off sedation. Pt is awake and alert. Will continue to monitor and follow. 04/21: Pt was discussed during AM rounds. S/p chest tube placement. Remained intubated and ventilated. Currently on NG tube feed with Glucerna 1.5 @40mL/hr; tolerating well per RN. Pt had multiple liquid BM today after Dulcolax was given. Will continue to monitor and follow. 04/17: 74yo F, who was admitted for PNA. Visited pt in the room. IVF @100mL/hr; Fentanyl. Per , pt has had good appetite [employer]. In the last 2 weeks, noticed that pt was choking on foods several times while eating too fast. On her last doctors visit in February 2019, pt weighted at 119lbs; no recent weight loss noted. At home, pt was bedbound and required O2 24/7. Per LEONORA Trevizo, planned for chest tube placement today and bronchoscopy tomorrow. TF will not be started until the procedures were done. Will continue to monitor and follow. Principal Problems/Diagnoses: 1. Acute pneumonia. 2. Empyema. PMH: dementia, borderline DM(per , no taking any meds), anxiety, HTN, PAD, COPD, HLD GI: abdomen soft, non-tender, liquid brown stool 05/06, +PEG Skin: no pressure wound noted Labs: 05/07: K 3.4 L, Creatinine 0.45 L 05/03: Creatinine 0.50 L, Glucose 119 H 04/29: K 3.1 L, BUN 5 L, Creatinine 0.55 L 04/24 Ca 7.8 L (04/21) Glucose 134 H (04/17) reviewed Meds: protonix Ht: 65in (verified with ) Wt: 128lbs; 134.31lb; 124.05lb; 129lb; 130lb; 119lb BMI: 21.3kg/m2 IBW: 125lb Malnutrition Evaluation (05/03) The patient does not meet criteria for a specified degree of malnutrition at this time. Will re-evaluate at follow-up as appropriate. Nutrition Prescription (Diet Order): Glucerna 1.5 @50mL/hr Estimated Nutritional Needs: Calories: 1160 1450kcal (20-25kcal/kg/d) Weight used: CBW Protein: 75 116g (1.3-2g/kg/d) Weight used: CBW Diet Adequacy: Not meeting calorie needs, not meeting protein needs Diet Education Needs Assessment: Diet education not indicated. Nutrition Care Level: low Nutrition Diagnosis: Inadequate energy intake related to current medical status as evidenced by pt requiring EN as main source of nutrition. Goal: Patient will meet 75-100% of estimated needs by follow up Progress: Progressing Interventions: Composition, Rate, Route Monitoring/Evaluation: Total energy intake, Total protein intake, Formula/Solution, Weight change, Gastric tolerance, labs Signed: Aspen Mccormack, MS, RD, LD
[2019-05-07] MEDS ORDERED: PROPOFOL IV EMULSION 10 MG/ML 50 ML VIAL ONE (18:31)
--- NOTE | 2019-05-07 19:00 | NUR ---
BEDSIDE SHIFT REPORT GIVEN TO THE AMUSEMENT PARK ENTERTAINER RN. PT DENIED FURTHER NEEDS.
[2019-05-07] MEDS ORDERED: FENTANYL CITRATE/PF 100MCG/2 ML INJ ONE (19:39)
[2019-05-07] MEDS: QUETIAPINE FUMARATE 25 MG TAB PO SCH (21:00)
--- NOTE | 2019-05-07 23:45 | NUR ---
patient destating to 80% on 3L nc, increased o2 to 5 L nc, o2 increased to 87%. spoke to respiratory about o2 breathing treatment given. patient placed on high flow nc 7 L sating 94%.
[2019-05-08] VITALS (8 sets, daily range): BP systolic 117–149; BP diastolic 58–71
[2019-05-08] MEDS: IPRATROPIUM BROMIDE 0.02% 2.5 ML NEB NEB SCH ×4 (00:40→20:25)
[2019-05-08] MEDS: LEVALBUTEROL HCL SOLN NEBU 0.63 MG/3 ML NEB INH SCH ×4 (00:40→20:25)
[2019-05-08] MEDS: SODIUM CHLORIDE 0.9% 1000ML 1,000 ML IV SCH ×2 (03:54→21:35)
--- NOTE | 2019-05-08 03:57 | NUR ---
picc line dressing changed. site clean, dry, and intact. patient tolerated well.
[2019-05-08 03:59] LABS: BASOPHILS % 0.5 % (0.0-1.0); EOSINOPHILS # (AUTO) 0.3 (0.0-0.4); EOSINOPHILS % 3.5 % (0.0-6.0); HEMATOCRIT 32.6 % (34.2-44.1); HEMOGLOBIN 10.5 g/dL (12.0-16.0); LYMPHOCYTES # (AUTO) 1.9 (1.0-3.2); LYMPHOCYTES % 22.6 % (18.0-39.1); MEAN CORPUSCULAR HEMOGLOBIN 30.3 pg (28-32); MEAN CORPUSCULAR HGB CONC 32.2 g/dL (31-35); MEAN CORPUSCULAR VOLUME 94.2 fL (81-99); MONOCYTES # (AUTO) 0.9 (0.2-0.8); MONOCYTES % 11.3 % (4.4-11.3); NEUTROPHILS % 61.5 % (38.7-80.0); PLATELET COUNT 411 x10e3/uL (140-360); RED BLOOD COUNT 3.46 x10e6/uL (3.6-5.1); RED CELL DISTRIBUTION WIDTH 16.3 % (11.7-14.4)
[2019-05-08 04:18] LABS: ALANINE AMINOTRANSFERASE 17 IU/L (0-55); ALBUMIN 2.3 g/dL (3.5-5.0); ALBUMIN/GLOBULIN RATIO 0.7 (0.8-2.0); ALKALINE PHOSPHATASE 90 IU/L (40-150); ANION GAP 15.5 mmol/L (8-16); BLOOD UREA NITROGEN 6 mg/dL (7-26); BUN/CREATININE RATIO 13 (6-25); CALCIUM 8.6 mg/dL (8.4-10.2); CARBON DIOXIDE 27 mmol/L (22-29); CHLORIDE 100 mmol/L (98-107); CREATININE, SERUM 0.46 mg/dL (0.57-1.11); EST GLOMERULAR FILTRATION RATE > 60 ML/MIN (60-); GLUCOSE 80 mg/dL (74-118); POTASSIUM 3.5 mmol/L (3.5-5.1); SODIUM 139 mmol/L (136-145)
--- NOTE | 2019-05-08 07:00 | NUR ---
BEDSIDE SHIFT REPORT RECEIVED FROM THE SILK WEAVER RN. PT DENIES NEEDS AT THIS TIME.
--- NOTE | 2019-05-08 07:15 | NUR ---
spoke to dr. ross about patient destating, chest xray ordered.
--- NOTE | 2019-05-08 08:29 | Progress Note ---
DATE: 05/08/2019 SUBJECTIVE: This is a 74-year-old female with a history of empyema, status post decortication. Yesterday, the patient had a PEG tube placement, drained Carbone. However, the patient had some desaturation and the oxygen had to be turned up. The patient has desatted to 82%. Had an MBS yesterday. No aspiration recorded. We will do a chest x-ray today. The patient is otherwise stable. No fever, afebrile. No chest pain and no shortness of breath either. PHYSICAL EXAMINATION: GENERAL: The patient is alert and oriented x3. VITAL SIGNS: Temperature 98.9, T-max is 99.6 on 05/07, blood pressure is 145/71. HEENT: Normocephalic, atraumatic. Pupils are reactive to light and accommodation. CVS: S1, S2 normal. Distant. Regular rate and rhythm. ABDOMEN: Nontender, nondistended. PEG tube in place and draining to Carbone. LUNGS: Positive for crackles at the lower bases and also for rhonchi in the right lower lobe. EXTREMITIES: No clubbing. No cyanosis. No edema. MICROBIOLOGY: No growth except for Laurel on Gram stain, bronchial wash. LABORATORY VALUES: White count is 8.7, hemoglobin of 10.5, hematocrit of 32.6, no left shift present. Chemistries, sodium 139, potassium 3.5, BUN is 16, and creatinine 0.6. Toxicology, vancomycin trough has been elevated. MEDICATIONS: At this time, ipratropium bromide, furosemide, Dulcolax, levalbuterol, acetaminophen, and pantoprazole 40 mg. Vancomycin has been discontinued. ASSESSMENT: Acute shortness of breath and hypoxia today. PLAN: 1. Plan is to do a chest x-ray. 2. Empyema, pleural effusion, status post decortication. 3. Acute respiratory failure, status post intubation. 4. Nutrition. PEG tube placement has been done. We will probably start the feeds at 20 mL an hour. Failed modified barium swallow. We will need the PEG tube and also ongoing therapy. 5. History of chronic respiratory failure, chronic obstructive pulmonary disorder. Continue O2 and chest x-ray today. The patient has a denial from LTAC, we will try to appeal. The patient will need higher level of care depending on her condition. SNF will not be appropriate for this patient. We will try to appeal and get her to the LTAC. Further recommendation per clinical course. Continue to monitor the patient. MD JIAN Leary/MODL /[id number]
[2019-05-08] MEDS: PANTOPRAZOLE 40 MG 10ML VIAL IV SCH (09:13)
--- NOTE | 2019-05-08 09:15 | Diagnostic Imaging Report ---
Examination: Single AP view of the chest. COMPARISON: 05/01/2019 INDICATION: Shortness of breath DISCUSSION: Right internal jugular central venous catheter and enteric tube have been removed. A right upper extremity PICC is unchanged in position, with the tip projecting over the low superior vena cava. When accounting for patient rotation, slight interval decrease in size of right pleural effusion with persistent airspace disease in the right middle and lower lobes and associated volume loss. Left hemithorax is comparatively well aerated. Stable cardiomediastinal contour with tortuosity and atherosclerotic calcification of the thoracic aorta. No acute osseous abnormality. Bilateral breast implants. IMPRESSION: Persistent right middle and lower lobe consolidations with interval decrease in size of pleural effusion relative to 05/01/2019. Signed by: Dr. Jin Mendoza M.D. on 05/08/2019 9:12 AM
--- NOTE | 2019-05-08 11:00 | NUR ---
CALLED DR NIDHI BOOTH REGARDING PEG TUBE USE. PER THE DR, START FEEDING AT 30 ML/HR. GOAL IS 75 ML/HR. WATER FLUSH 200 ML Q8 HRS.
--- NOTE | 2019-05-08 11:11 | NUR ---
LTAC level of care was denied by medical practice assistant after P2P was completed by Dr. Sanchez. Appeal option was offered. Dr. Sanchez wants to expedite an appeal. Alysia Miramontes will be picking supervisor clinicals and start appeal process.
[2019-05-08] MEDS: LANOLIN 4.5 OZ OINT TP SCH ×2 (11:45→23:50)
--- NOTE | 2019-05-08 12:00 | NUR ---
PEG TUBE FEEDING STARTED AT 30 ML/HR. PT TOLERATED WELL. PT FAMILY AT BEDSIDE, DENIED FURTHER NEEDS.
[2019-05-08] MEDS: ACETAMINOPHEN 325 MG/10 ML UDC NG PRN (18:33)
--- NOTE | 2019-05-08 19:00 | NUR ---
BEDSIDE SHIFT REPORT GIVEN TO THE SUPERVISOR WASH HOUSE RN. PT DENIED FURTHER NEEDS.
--- NOTE | 2019-05-08 20:35 | NUR ---
NO RESIDUAL NOTED. PATIENT TOLERATE FEEDING WELL. INCREASE FEEDING TO 40ML/HR
[2019-05-08] MEDS: QUETIAPINE FUMARATE 25 MG TAB PO SCH (21:35)
[2019-05-09] VITALS (7 sets, daily range): BP systolic 125–150; BP diastolic 58–69
[2019-05-09] MEDS: IPRATROPIUM BROMIDE 0.02% 2.5 ML NEB NEB SCH ×4 (04:00→18:40)
[2019-05-09] MEDS: LEVALBUTEROL HCL SOLN NEBU 0.63 MG/3 ML NEB INH SCH ×4 (04:00→18:40)
[2019-05-09 05:20] LABS: BASOPHILS % 0.6 % (0.0-1.0); EOSINOPHILS # (AUTO) 0.3 (0.0-0.4); EOSINOPHILS % 4.2 % (0.0-6.0); HEMATOCRIT 33.7 % (34.2-44.1); HEMOGLOBIN 10.7 g/dL (12.0-16.0); LYMPHOCYTES # (AUTO) 1.5 (1.0-3.2); LYMPHOCYTES % 21.1 % (18.0-39.1); MEAN CORPUSCULAR HEMOGLOBIN 30.3 pg (28-32); MEAN CORPUSCULAR HGB CONC 31.8 g/dL (31-35); MEAN CORPUSCULAR VOLUME 95.5 fL (81-99); MONOCYTES # (AUTO) 0.9 (0.2-0.8); MONOCYTES % 11.9 % (4.4-11.3); NEUTROPHILS # (AUTO) 4.4 (2.1-6.9); NEUTROPHILS % 61.8 % (38.7-80.0); PLATELET COUNT 420 x10e3/uL (140-360); RED BLOOD COUNT 3.53 x10e6/uL (3.6-5.1); RED CELL DISTRIBUTION WIDTH 16.3 % (11.7-14.4)
[2019-05-09 05:31] LABS: ALANINE AMINOTRANSFERASE 12 IU/L (0-55); ALBUMIN 2.3 g/dL (3.5-5.0); ALBUMIN/GLOBULIN RATIO 0.7 (0.8-2.0); ALKALINE PHOSPHATASE 88 IU/L (40-150); ANION GAP 10.4 mmol/L (8-16); BLOOD UREA NITROGEN 8 mg/dL (7-26); BUN/CREATININE RATIO 17 (6-25); CALCIUM 8.6 mg/dL (8.4-10.2); CARBON DIOXIDE 31 mmol/L (22-29); CHLORIDE 104 mmol/L (98-107); CREATININE, SERUM 0.48 mg/dL (0.57-1.11); EST GLOMERULAR FILTRATION RATE > 60 ML/MIN (60-); GLUCOSE 132 mg/dL (74-118); POTASSIUM 3.4 mmol/L (3.5-5.1); SODIUM 142 mmol/L (136-145)
--- NOTE | 2019-05-09 07:30 | NUR ---
REC'D PATIENT AAOX1, PATIENT IS AT 45 DEGREES IN BED, PT IS NPO AND ON PEG TUBE, GLUCERNA 1.2 RUNNING AT 40 CC/HR, RIGHT UPPER PICC LINE IS CLEAN AND INTACT AND WITH NO COMPLICATIONS. PATIENT IS WEARING DIAPER. AT BEDSIDE. BED IN LOWEST POSITION, SIDE RAILS UP X2, AND CALL GOEL WITHIN REACH.
--- NOTE | 2019-05-09 07:35 | NUR ---
DR. GUIDRY ORDERED TO CONSULT DR. ROBERTS TO SEE IF HE CAN PLACE PATIENT BACK ON ANTIBIOTICS. PAGED DR. ROBERTS. DR. ROBERTS CALLED BACK AND EXPLAINED DR. GUIDRY'S ORDER. DR. ROBERTS SAID HE WILL CALL DR. GUIDRY.
--- NOTE | 2019-05-09 08:00 | NUR ---
PAGED DR. ROBERTS TO PLACE PATIENT BACK ON ANTIBIOTICS PER DR. GUIDRY.
--- NOTE | 2019-05-09 08:11 | Progress Note ---
DATE: 05/09/2019 SUBJECTIVE: The patient is admitted for pleural effusion, status post decortication, history of acute respiratory failure, status post intubation. The patient had some deterioration in the last 2 days. The patient's O2 level has been up to 5 L and starting at 5 L at this time to keep the sats above 90%. Currently, the patient is on Lasix, ipratropium, levalbuterol, pantoprazole, quetiapine, atorvastatin, and alprazolam. Albuterol has been on hold. Antibiotics have been hold because of chronic diarrhea and the patient is on 1.2 L of Jevity at this time. OBJECTIVE: VITAL SIGNS: Temperature is 97.3, pulse of 88, respirations of 18, blood pressure is 125/61, and pulse oximetry of 96% on 4 L of oxygen. HEENT: Normocephalic, atraumatic. Pupils are reactive to light and accommodation. CVS: S1, S2 normal. Regular rate and rhythm. LUNGS: Decreased air entry, right-sided rhonchi present. Decreased air entry on the right side. EXTREMITIES: No clubbing, no cyanosis, no edema. GENERAL: The patient looks cachectic and malnourished. LABORATORY VALUES: Today's white count is 7.15, hemoglobin of 10.7, and hematocrit of 33.7. Chemistry shows sodium 142, potassium of 3.4, GFR of above 60. Coags are normal. Toxicology, vancomycin has been held. Trough was 19.3. MICROBIOLOGY: No growth except for Laurel and bronchial washing. IMAGING STUDIES: Done. Chest x-ray done yesterday showed persistent right middle lobe and lower lobe consolidation with interval decrease in size of pleural effusions related to 05/01. The patient has modified barium swallow done on shows laryngeal penetration with aspiration. ASSESSMENT: 1. Empyema, pleural effusion, and pneumonia. 2. Acute respiratory failure with acute exacerbation with increase in oxygen. 3. History of aspiration. 4. Failed modified barium swallow study with laryngeal penetration. The patient is to continue with laryngeal therapy. 5. History of chronic obstructive pulmonary disease. Continue with oxygen and continue with albuterol and Atrovent treatments. PLAN: Had long discussion with the [id number] doctors. The patient is sick enough at this point of time to go to SNF. The patient will need an LTAC because of her waxing and waning situation and deterioration. From time to time, the patient's condition will be reassessed and ID to restart IV antibiotics in lieu of her consolidation did persist. Further recommendation per clinical course. We will recommend LTAC again for this patient. The patient is not appropriate for SNF and we will continue to deteriorate and end up in the hospital if SNF is ordered. Further recommendation per clinical course. We will talk to ID and restart IV antibiotics. MD JIAN Leary/MODL /[id number]
[2019-05-09] MEDS: PANTOPRAZOLE 40 MG 10ML VIAL IV SCH (09:47)
[2019-05-09] MEDS: LANOLIN 4.5 OZ OINT TP SCH ×2 (11:59→23:30)
[2019-05-09] MEDS: CEFTRIAXONE SOD 1 GM/NS 50 ML 50 ML IV SCH (12:00)
[2019-05-09] MEDS: SODIUM CHLORIDE 0.9% 1000ML 1,000 ML IV SCH (13:14)
[2019-05-09] MEDS: METRONIDAZOLE 500MG/NS 100ML 100 ML IV SCH ×2 (14:00→21:45)
--- NOTE | 2019-05-09 14:04 | NUR ---
IV abx added back onto pt's medication list today. Updated med list faxed to [employer] at [phone]. Currently in appeals process.
[2019-05-09] MEDS ORDERED: SODIUM CHLORIDE 0.9% 1000ML 1,000 ML ONE (16:02)
--- NOTE | 2019-05-09 18:56 | NUR ---
PATIENT IS IN BED AT 45 DEGREES, CHECKED RESIDUAL AND PATIENT TOLERATING FEEDINGS WELL AT 45 ML/HR, NO S/S OF DISTRESS. OXYGEN DELIVERED AT 4L/MIN. BED IN LOWEST POSITION, SIDE RAILS UP X2, AND CALL GOEL WITHIN REACH. AT BEDSIDE.
--- NOTE | 2019-05-09 20:45 | NUR ---
NO RESIDUAL NOTED. PATIENT TOLERATE FEEDING WELL. INCREASE FEEDING TO 55ML/HR
[2019-05-09] MEDS: QUETIAPINE FUMARATE 25 MG TAB PO SCH (21:45)
[2019-05-10] VITALS (8 sets, daily range): BP systolic 126–149; BP diastolic 60–82
[2019-05-10] MEDS: IPRATROPIUM BROMIDE 0.02% 2.5 ML NEB NEB SCH ×4 (02:15→19:05)
[2019-05-10] MEDS: LEVALBUTEROL HCL SOLN NEBU 0.63 MG/3 ML NEB INH SCH ×4 (02:15→19:05)
[2019-05-10] MEDS: SODIUM CHLORIDE 0.9% 1000ML 1,000 ML IV SCH (05:51)
[2019-05-10] MEDS: METRONIDAZOLE 500MG/NS 100ML 100 ML IV SCH ×3 (05:55→21:51)
--- NOTE | 2019-05-10 06:11 | NUR ---
NO RESIDUAL NOTED. PATIENT TOLERATE FEEDING WELL. INCREASE FEEDING TO 65ML/HR
--- NOTE | 2019-05-10 07:30 | NUR ---
REC'D PATIENT AAOX1, AT THE BEDSIDE. RIGHT UPPER PICC LINE IS CLEAN, DRY, AND INTACT.GLUCERNA 1.2 RUNNING VIA PEG TUBE. CHECKED RESIDUAL AND RECEIVED 10 ML BACK. PATIENT TOLERATING FEEDINGS WELL AT 65 ML/HR. REPOSITIONED IN BED FOR COMFORT. SIDE RAILS UP X2, CALL GOEL WITHIN REACH, AND BED IN LOWEST POSITION.
[2019-05-10] MEDS: PANTOPRAZOLE 40 MG 10ML VIAL IV SCH (09:00)
[2019-05-10] MEDS: CEFTRIAXONE SOD 1 GM/NS 50 ML 50 ML IV SCH (12:00)
[2019-05-10] MEDS: LANOLIN 4.5 OZ OINT TP SCH ×2 (12:30→23:45)
--- NOTE | 2019-05-10 15:35 | NUR ---
checked residual. residual is about 10 ml. patient tolerating peg tube feedings well.
--- NOTE | 2019-05-10 18:45 | NUR ---
Received bedside report from day shift RN. Patient is in bed call light within reach, set low, side rails up x2 and is not in distress. Patient's at bedside.
--- NOTE | 2019-05-10 18:55 | NUR ---
PATIENT IS AT 45 DEGREES IN BED, FEEDINGS RUNNING AND TOLERATING WELL, AT BEDSIDE, OXYGEN DELIVERED AT 4L/MIN, AND NO S/S OF DISTRESS. BED IN LOWEST POSITION, SIDE RAILS UP X2, AND CALL GOEL WITHIN REACH.
[2019-05-10] MEDS: QUETIAPINE FUMARATE 25 MG TAB PO SCH (21:51)
[2019-05-11] VITALS: BP 138/59
[2019-05-11] MEDS: IPRATROPIUM BROMIDE 0.02% 2.5 ML NEB NEB SCH ×4 (01:20→18:53)
[2019-05-11] MEDS: LEVALBUTEROL HCL SOLN NEBU 0.63 MG/3 ML NEB INH SCH ×4 (01:20→18:53)
[2019-05-11 04:00] VITALS: BP 133/65
[2019-05-11] MEDS: METRONIDAZOLE 500MG/NS 100ML 100 ML IV SCH ×2 (05:25→14:03)
--- NOTE | 2019-05-11 06:52 | NUR ---
During bedside shift report, patient's reported his alert/orientation is different from the day before and blames it on the Seroquel. The sppouse want to discontinue the medication and go on Xanax 2 mg via PEG tube. RN will contact MD for order.
[2019-05-11] MEDS ORDERED: ALPRAZOLAM1 MG PEG (07:01)
--- NOTE | 2019-05-11 07:04 | NUR ---
Received order to DC Seroquel 12.5 mg iv PEG and Xanax 2 mg via PEG HS.
[2019-05-11] MEDS ORDERED: ALPRAZOLAM 1 MG TAB PO PRN (07:15)
[2019-05-11 07:30] VITALS: BP 132/62
--- NOTE | 2019-05-11 07:30 | NUR ---
REC'D PATIENT AAOX3, FEEDINGS RUNNING AT BEING TOLERATED, RIGHT UPPER ARM PICC LINE CLEAN AND INTACT, OXYGEN BEING DELIVERED AT 4L/MIN, NO S/S OF DISTRESS, AT THE BEDSIDE. BED IN LOWEST POSITION, CALL GOEL WITHIN REACH, AND SIDE RAILS UP X2.
[2019-05-11 08:00] VITALS: BP 134/62
[2019-05-11] MEDS: PANTOPRAZOLE 40 MG 10ML VIAL IV SCH (09:15)
[2019-05-11] MEDS: LANOLIN 4.5 OZ OINT TP SCH (10:18)
[2019-05-11] MEDS ORDERED: SODIUM CHLORIDE 0.9% 1000ML 1,000 ML ONE (11:12)
[2019-05-11 12:00] VITALS: BP 128/65
[2019-05-11] MEDS: CEFTRIAXONE SOD 1 GM/NS 50 ML 50 ML IV SCH (12:50)
[2019-05-11] MEDS: SODIUM CHLORIDE 0.9% 1000ML 1,000 ML IV SCH (13:00)
--- NOTE | 2019-05-11 13:00 | NUR ---
DR. JARVIS (COVERING FOR DR. GUIDRY) ORDERED FOR PATIENT TO BE TRANSFERRED TO LTAC [facility]. CALLED KLEVER FROM [facility] TO GIVE NOTIFICATION ABOUT DR. JARVIS ORDER. KLEVER WILL CALL BACK TO GIVE ROOM NUMBER WHERE PATIENT WILL BE GOING TO.
--- NOTE | 2019-05-11 14:00 | NUR ---
PATIENT HAS A ROOM READY AT [facility]. KLEVER STATED THAT WE WILL NEED TO CALL TO GIVE REPORT DURING SHIFT CHANGE.
[2019-05-11 16:00] VITALS: BP 125/59
--- NOTE | 2019-05-11 18:55 | NUR ---
PATIENT IS LAYING DOWN AT 45 DEGREES UP. AT BEDSIDE, FLUIDS RUNNING, FEEDINGS RUNNING. NO S/S OF DISTRESS. OXYGEN AT 4L/MIN. SIDE RAILS UP X2, CALL GOEL WITHIN REACH, AND CALL GOEL WITHIN REACH. SIGNED [employer]ERS FOR TRANSFER.
--- NOTE | 2019-05-11 19:20 | NUR ---
CALLED [facility] TO GIVE REPORT ABOUT PATIENT. GAVE REPORT TO LEONORA CROOKS. AMBULANCE HAS BEEN CALLED TO [facility] INSTRUCTOR FOR 1930.
--- NOTE | 2019-05-15 13:38 | Operative Report ---
DATE OF PROCEDURE: 04/23/2019 SURGEON: Mamadou Grey MD PREOPERATIVE DIAGNOSIS: Empyema of the right lung. POSTOPERATIVE DIAGNOSIS: Empyema of the right lung. OPERATION PERFORMED: Right video-assisted thoracoscopic surgery with pneumolysis, decortication, and pleurectomy. RAILCAR BRAKE OPERATOR: Dr. Chidi Grey and LEON Perry. ANESTHESIA: General. COMPLICATIONS: None. ESTIMATED BLOOD LOSS: 300 mL. DESCRIPTION OF PROCEDURE: With the patient lying in bed in the lateral position under good general endotracheal anesthesia with a double-lumen tube, the right chest was prepped with Betadine solution and draped in the usual manner. The area where the previous chest tube had been placed was then enlarged and using digital exploration, the pleural cavity was entered. A video thoracoscope was then placed into the chest cavity, immediately some gelatinous material was encountered. This was and a 2nd thoracoport was then placed more anteriorly and a 3rd thoracoport was placed more posteriorly. At this point, examination revealed quite extensive amount of gelatinous fluid consistent with a multiloculated empyema. Cultures were taken. All of the pleural attachments were then slowly and carefully taken down and the lung was freed up. Pulmonary pneumolysis was then also performed and all of the fluid was aspirated. The lung was also from the diaphragm and all the material was removed. At this point, examination revealed a rather stiff hard lower lobe with the lung consistent with a chronic pneumonia likely from aspiration, although obviously malignancy cannot be entirely ruled out. The lung was then fully and completely thoracoscopically and freed up in all directions and all the loculations were broken down. We then went ahead and proceeded to do a parietal pleurectomy all the way around down the lungs, so that the lung would stick well and hopefully prevent any further development of empyema. The whole area was then thoroughly irrigated. Hemostasis was ascertained although the pleura and material were sent for pathological examination. Two chest tubes were then placed #28 one anteriorly and one posteriorly using one of the thoracoports anteriorly and another side posteriorly and this were sutured to the skin with #1 Mersilene suture. The lung was then re-expanded and the wounds were then closed in layers. The muscle layers were closed with 2-0 Vicryl. The subcutaneous tissue was approximated with 3-0 Vicryl and the skin was closed with interrupted vertical mattress sutures of 3-0 silk. Dressings were applied. The sponge, lap, and needle count was correct. The patient tolerated the procedure well and returned to the recovery room in stable condition. MD JAGDEEP Christy/ÁNGEL /[id number]
== END 2019-05-11 20:05 | DRG 853 ==
LOC: ER 13:40 → ERHOLD 18:27 → ICU 21:30 → MED/SURG2 05-01 01:03
PROVIDERS: ADMIT Family Medicine; ATTEND Family Medicine
PROC: 0BH17EZ Insertion of Endotracheal Airway into Trachea, Via Natural or Artificial Opening (ICD-10-PCS; principal; 2019-04-16)
PROC: 5A1955Z Respiratory Ventilation, Greater than 96 Consecutive Hours (ICD-10-PCS; 2019-04-16)
PROC: 02HV33Z Insertion of Infusion Device into Superior Vena Cava, Percutaneous Approach (ICD-10-PCS; 2019-04-16)
PROC: 0BD68ZX Extraction of Right Lower Lobe Bronchus, Via Natural or Artificial Opening Endoscopic, Diagnostic (ICD-10-PCS; 2019-04-18)
PROC: 0BCK4ZZ Extirpation of Matter from Right Lung, Percutaneous Endoscopic Approach (ICD-10-PCS; 2019-04-23)
PROC: 0BBN4ZZ Excision of Right Pleura, Percutaneous Endoscopic Approach (ICD-10-PCS; 2019-04-23)
PROC: 30243N1 Transfusion of Nonautologous Red Blood Cells into Central Vein, Percutaneous Approach (ICD-10-PCS; 2019-04-28)
PROC: 0B9F8ZZ Drainage of Right Lower Lung Lobe, Via Natural or Artificial Opening Endoscopic (ICD-10-PCS; 2019-05-07)
PROC: 0DJ08ZZ Inspection of Upper Intestinal Tract, Via Natural or Artificial Opening Endoscopic (ICD-10-PCS; 2019-05-07)
PROC: 0DH63UZ Insertion of Feeding Device into Stomach, Percutaneous Approach (ICD-10-PCS; 2019-05-07)
DX: A41.9 Sepsis, unspecified organism (principal); J18.9 Pneumonia, unspecified organism; J96.21 Acute and chronic respiratory failure with hypoxia; G92 Toxic encephalopathy; J86.9 Pyothorax without fistula; J69.0 Pneumonitis due to inhalation of food and vomit; J44.1 Chronic obstructive pulmonary disease with (acute) exacerbation; J44.0 Chronic obstructive pulmonary disease with (acute) lower respiratory infection; J90 Pleural effusion, not elsewhere classified; F03.90 Unspecified dementia, unspecified severity, without behavioral disturbance, psychotic disturbance, mood disturbance, and anxiety; F17.210 Nicotine dependence, cigarettes, uncomplicated; I25.2 Old myocardial infarction; I25.10 Atherosclerotic heart disease of native coronary artery without angina pectoris; D63.8 Anemia in other chronic diseases classified elsewhere; K74.60 Unspecified cirrhosis of liver; F41.9 Anxiety disorder, unspecified
CPT/HCPCS: 31500; 31623; 36415; 36569; 36600; 43246; 71045; 71250; 71260; 74018; 74230; 74470; 80048; 80053; 80202; 81001; 82550; 82553; 82805; 82948; 83605; 83735; 84100; 84484; 85025; 85610; 85730; 86850; 86900; 86920; 87040; 87070; 87086; 87102; 87116; 87205; 87206; 87335; 87493; 88112; 88305; 88312; 89051; 93005; 94002; 94003; 94640; 94660; 94667; 94668; 97139; 99284; J0171; J0330; J0456; J0692; J0696; J1100; J1450; J1644; J1650; J1940; J2001; J2060; J2250; J2405; J2543; J2920; J3370; J3480; J7030; J7050; P9016; Q9967

== ENCOUNTER 2019-07-21 16:25 | Inpatient (IN) | payer MEDICARE ==
[~2019-07-21] VITALS: Ht 167.6 cm; Wt 61.4 kg
[~2019-07-21 16:25] MED LIST: ALBUTEROL0.63 MG/3 INH; ALPRAZOLAM1 MG PEG; ALPRAZOLAM1 MG PO; ASPIR 8181 MG PO; ATORVASTATIN CA10 MG PO; CENTRUM SILVER1 EAC3 PO; CILOSTAZOL100 MG PO; METOPROLOL SUCC25 MG PO; NAMENDA10 MG PO
--- NOTE | 2019-07-21 16:45 | NUR ---
notified radiology of film/ct orders.
[2019-07-21 17:32] LABS: BILIRUBIN,URINE NEGATIVE (NEGATIVE); CLARITY,URINE SL CLOUDY (CLEAR); COLOR,URINE YELLOW (YELLOW); KETONES,URINE NEGATIVE (NEGATIVE); LEUKOCYTE ESTERASE ,URINE TRACE (NEGATIVE); NITRITE,URINE POSITIVE (NEGATIVE); PROTEIN,URINE DIPSTICK TRACE (NEGATIVE); URINE UROBILINOGEN 0.2 mg/dL (0.2 - 1)
[2019-07-21 17:44] LABS: AMORPHOUS SEDIMENT,URINE FEW (FEW); BACTERIA,URINE MANY /HPF; RBC,URINE 0-5 /HPF (0-5)
[2019-07-21] MEDS ORDERED: CEFTRIAXONE SOD 1 GM/NS 50 ML 50 ML IV ONE (18:30)
--- NOTE | 2019-07-21 18:36 | Diagnostic Imaging Report ---
CT of the pelvis was obtained WITHOUT contrast. TECHNIQUE: Standard departmental protocols were used. Sagittal and coronal reformations were obtained. HISTORY: Fall COMPARISON: None available FINDINGS: Bones: Diffusely decreased mineralization of the osseous structures limits bone detail. Mildly impacted subcapital right femoral neck fracture. Joints: Minimal to mild scattered degenerative changes. Soft tissues: Diffuse scattered atherosclerotic vascular calcifications. Prominent colonic diverticulosis. IMPRESSION: 1. Acute, mildly impacted subcapital right femoral neck fracture. 2. Diffuse osseous demineralization. Discussed with Dr. Blancas via phone on July 21, 2019 at 1830. The provider verbalizes an understanding. Signed by: Dr. Mika Weber D.O., M.M.M. on 07/21/2019 6:33 PM
--- NOTE | 2019-07-21 18:51 | Diagnostic Imaging Report ---
RIGHT WRIST - 3 Image(s) RIGHT ELBOW - 3 Image(s) RIGHT KNEE - 3 Image(s) RIGHT FOOT - 3 Image(s) HISTORY: Fall COMPARISON: None available. FINDINGS: Suboptimal positioning on the lateral view of the elbow. Flexion of the third through fifth toes partially limits evaluation of the foot. Bones: Diffusely decreased mineralization of the osseous structures limits bone detail. No acute displaced fracture. No aggressive osseous lesion. Joints: Minimal scattered degenerative changes. Soft tissues: The soft tissues appear unremarkable. IMPRESSION: 1. Diffuse osseous demineralization. 2. No acute displaced fracture. Signed by: Dr. Mika Weber D.O., M.M.M. on 07/21/2019 6:48 PM
--- NOTE | 2019-07-21 18:56 | Diagnostic Imaging Report ---
A single frontal view of the chest. HISTORY: Fall COMPARISON: Chest radiograph May 08, 2019 DISCUSSION: Portable technique, limits sensitivity of the exam. Soft tissue attenuation partially limits sensitivity of the exam. Multiple overlying artifacts. Tubes/Lines: None Lungs and pleura: Persistent right lung volume loss with right mid to lower thorax compatible with opacity, slightly decreased versus the comparison. The left lung is mildly hyperinflated with trace pleural thickening versus pleural fluid. Underlying pathology could be obscured. Heart and mediastinum: The cardiomediastinal silhouette appear(s) appears unchanged, the right-sided obscured. Mediastinal structures remain shifted towards the right, likely secondary to the described right lung base volume loss. Bones and soft tissues: Diffusely decreased mineralization of the osseous structures limits bone detail. Bilateral breast implants. IMPRESSION: 1. Interval decrease in the right pleural effusion and adjacent atelectasis. Recommend continued surveillance follow-up to resolution. 2. Hyperinflated left lung with trace pleural fluid versus pleural thickening. Signed by: Dr. Mika Weber D.O., M.M.M. on 07/21/2019 6:52 PM
--- NOTE | 2019-07-21 18:59 | Diagnostic Imaging Report ---
History: Fall, pain Comparison studies:None Technique: Axial images were obtained from the brain and cervical spine. Coronal and sagittal images reconstructed from the axial data. Intravenous contrast: None Dose modulation, iterative reconstruction, and/or weight based adjustment of the mA/kV was utilized to reduce the radiation dose to as low as reasonably achievable. Findings: Head CT: Scalp/skull: No abnormalities. No fractures, blastic or lytic lesions. Brain sulci: Mildly prominent. Ventricles: Mild compensatory dilatation. No hydrocephalus. Parenchyma: Few hypodensities in the supratentorial white matter are small vessel ischemic changes. No masses, hemorrhage, acute or chronic cortical vascular insults. Sellar/suprasellar region: No abnormalities. Craniocervical junction: Patent foramen magnum. No Chiari one malformation. Incidental findings: Atherosclerotic calcifications in the carotid siphons . Cervical spine CT: Fractures: None. Soft tissues: No gross abnormalities. Atlantoaxial articulation: Degenerative changes without acute abnormality. Alignment: Normal lordosis. No scoliosis. Cervicomedullary junction: No abnormalities. Patent foramen magnum. Vertebrae: No infection or neoplasm. Degenerative changes: Grossly patent canal and foramina. Incidental findings: None. Impression: Head CT: 1. No acute intracranial abnormality. Cervical spine CT: 1. No abnormalities. 2. Cannot exclude ligament, spinal cord and or vascular abnormalities on the basis of this examination. Signed by: DR Andrew Beltran M.D. on 07/21/2019 6:56 PM
[2019-07-21] MEDS ORDERED: CEFTRIAXONE SOD 1 GM VIAL IV SCH (19:00)
--- NOTE | 2019-07-21 19:00 | NUR ---
DR. SUMMERS UPDATED PT/FAMILY ON POC/PENDING ADMIT
--- NOTE | 2019-07-21 19:56 | NUR ---
CALL PLACED TO DR. GUIDRY'S [facility] FOR THIS PT.
--- NOTE | 2019-07-21 20:07 | NUR ---
ORDERS REC'D FROM DR JARVIS FOR THIS PT.
[2019-07-21] MEDS ORDERED: ACETAMINOPHEN 325 MG TAB PO PRN (20:15)
--- NOTE | 2019-07-21 20:22 | Diagnostic Imaging Report ---
Pelvis CPT code: 91699 Indication: Subcapital right femoral neck fracture ^PAIN ^[id number] ^1949 Technique: Portable A.P. view of the pelvis obtained Comparison: CT pelvis 07/21/2019 Findings: The bones are diffusely demineralized. Subcapital fracture of the right femoral neck is redemonstrated with mild impaction. The articular surface of the femoral head is normal. There is no dislocation of the femoral head from the acetabulum. The left hip is intact and normally positioned. No diastases of the the pubic symphysis or sacroiliac joints. No focal osseous lesions. IMPRESSION: Stable alignment of subcapital fracture of the right femoral neck. Signed by: Dr. Reginald Wills MD on 07/21/2019 8:19 PM
[2019-07-21 20:23] LABS: BASOPHILS % 0.3 % (0.0-1.0); EOSINOPHILS # (AUTO) 0.2 (0.0-0.4); EOSINOPHILS % 1.3 % (0.0-6.0); HEMATOCRIT 40.3 % (34.2-44.1); HEMOGLOBIN 13.3 g/dL (12.0-16.0); MEAN CORPUSCULAR HEMOGLOBIN 30.7 pg (28-32); MEAN CORPUSCULAR VOLUME 93.1 fL (81-99); MONOCYTES # (AUTO) 0.7 (0.2-0.8); MONOCYTES % 5.8 % (4.4-11.3); NEUTROPHILS # (AUTO) 8.8 (2.1-6.9); NEUTROPHILS % 75.3 % (38.7-80.0); PLATELET COUNT 256 x10e3/uL (140-360); RED BLOOD COUNT 4.33 x10e6/uL (3.6-5.1); RED CELL DISTRIBUTION WIDTH 12.6 % (11.7-14.4)
[2019-07-21 20:32] LABS: INR 0.89; PROTHROMBIN TIME 12.5 seconds (11.9-14.5)
[2019-07-21 20:38] LABS: ANION GAP 16.1 mmol/L (8-16); BLOOD UREA NITROGEN 14 mg/dL (7-26); BUN/CREATININE RATIO 21 (6-25); CALCIUM 10.1 mg/dL (8.4-10.2); CARBON DIOXIDE 28 mmol/L (22-29); CHLORIDE 101 mmol/L (98-107); CREATININE, SERUM 0.67 mg/dL (0.57-1.11); EST GLOMERULAR FILTRATION RATE > 60 ML/MIN (60-); GLUCOSE 110 mg/dL (74-118); POTASSIUM 4.1 mmol/L (3.5-5.1); SODIUM 141 mmol/L (136-145)
[2019-07-21 20:40] VITALS: BP 147/71
--- NOTE | 2019-07-21 20:40 | NUR ---
Received from [facility] in stretcher with h/o fall @ home today and noted fracture of right femoral neck.assessment done.allert but has forget fullness.on o2 2 litre.iv to right ac patent.NS running.peg tube is in place.but patient is eating by mouth.no resp.distress.pain voiced 01/26.bed alarm on.bed locked and in lowest position.phone and call light within reach.instructed to call for asistance as needed.family member at bed side.oriented to the unit.skin tear noted @ right arm.eccymosis noted @ forehead.
[2019-07-21 20:50] VITALS: BP 147/71
[2019-07-21 21:15] VITALS: BP 147/71
[2019-07-21] MEDS: SODIUM CHLORIDE 0.9% 1000ML 1,000 ML IV SCH (22:36)
[2019-07-21] MEDS ORDERED: ALBUTEROL SULF 0.083% NEB SOLN 3 ML NEB INH PRN (23:00)
[2019-07-22] VITALS (7 sets, daily range): BP systolic 108–138; BP diastolic 53–65
--- NOTE | 2019-07-22 00:30 | NUR ---
CALL PLACED FOR NEB. TREATMENT.BLOOD FLIP AND SENT TO THE LAB FOR TYPE AND SCREEN.
--- NOTE | 2019-07-22 01:25 | NUR ---
Plexi pump placed.patient and family member want to discuss with before signing consent.tried to reach .but could not.
[2019-07-22] MEDS: ONDANSETRON HCL INJ 2MG/ML 2ML 2 MG/ML VIAL IV PRN ×2 (03:51→23:21)
[2019-07-22] MEDS: MORPHINE SULFATE INJ 4 MG/ML INJ 1ML IV PRN ×2 (03:51→23:22)
--- NOTE | 2019-07-22 03:56 | NUR ---
Antibody screen positive.repeat blood carolyne and sent to the lab.tolerated well.
--- NOTE | 2019-07-22 06:00 | NUR ---
PATIENT DID NOT VOID.BLADDER SCAN OBTAINED.384 ML URINE NOTED.NOTIFIED TO MD GUIDRY.ORDERED TO PUT DE LEON CATHETER #16 .INSERTED IN A ASEPTIC TECHNIQUE.PATIENT TOLERATED WELL.URINE DRAINING WELL.
--- NOTE | 2019-07-22 07:00 | NUR ---
BED SIDE SHIFT REPORT GIVEN TO THE ONCOMING RN.STABLE CONDITION.ON NPO.
[2019-07-22] MEDS: CILOSTAZOL 100 MG TAB PO SCH ×2 (09:00→16:12)
[2019-07-22] MEDS: MEMANTINE 10 MG TAB PO SCH ×2 (09:00→16:12)
[2019-07-22] MEDS: ALPRAZOLAM 1 MG TAB PO SCH ×2 (09:00→16:12)
[2019-07-22] MEDS: SODIUM CHLORIDE 0.9% 1000ML 1,000 ML IV SCH ×2 (09:35→12:13)
--- NOTE | 2019-07-22 12:36 | NUR ---
EVON CARE PERFORMED AT THIS TIME Addendum: 07/22/19 at 1237 by Yomaira Palacios RN DE LEON CARE WITH ANTISEPTIC WIPE
--- NOTE | 2019-07-22 13:02 | History and Physical ---
REASON FOR ADMISSION: A 74-year-old female, comes after a fall with right hip fracture. HISTORY OF PRESENT ILLNESS: Ms. Ashley Hart, who was recently admitted to the hospital and discharged after long-term care in the hospital with a history of empyema, anemia, and also with history of COPD. The patient was going to the bathroom last night by herself and went to the commode after on getting up, the patient got tangled in her undergarments and fell over and apparently had sustained right hip fracture, comes in with the same. Pain is 8/10 in intensity and the patient admitted to the hospital for open reduction and internal fixation. PAST MEDICAL HISTORY: History of COPD, history of MT in the past, history of coronary artery disease, history of dementia. The patient also has history of hyperlipidemia. MEDICATIONS: She takes at home are albuterol, Atrovent q.6 hours, alprazolam for anxiety 1 mg b.i.d., aspirin 81 mg, atorvastatin 10 mg p.o. at bedtime, cilostazol for PAD 100 mg b.i.d., Namenda 10 mg b.i.d., metoprolol 25 mg ER q.a.m. and multivitamin. PAST SURGICAL HISTORY: 1. History of abdominal aorta repair. 2. History of hernia repair. 3. No orthopedic surgeries documented. SOCIAL HISTORY: No EtOH, no IV drug abuse. History of smoking in the past, stopped about 3 months ago. Currently, nonsmoker. The patient also has additional history of aspiration and has been doing some speech therapy with speech and is currently eating by herself. ALLERGIES: THE PATIENT IS ALLERGIC TO CODEINE AND HYDROCODONE. REVIEW OF SYSTEMS: Negative for chest pain. No shortness of breath. No nausea, vomiting, or diarrhea. No constipation. No rectal bleeding. No hematochezia. No hematemesis. Positive for dementia as mentioned by the . FAMILY HISTORY: No significant family history. PHYSICAL EXAMINATION: GENERAL: The patient is alert and oriented x3. Repetitive words. VITAL SIGNS: Temperature is 97.0, pulse of 117, respirations of 20, pulse oximetry of 98%. The patient is on O2 2 L. HEENT: Normocephalic, atraumatic. Pupils are reactive to light and accommodation. SKIN: Multiple ecchymoses present on left side and the right side. CVS: S1, S2 normal. Regular rate and rhythm. LUNGS: Decreased air entry. ABDOMEN: Nontender, nondistended. Right hip tender. EXTREMITIES: Positive for clubbing. No cyanosis, and no edema. LABORATORY DATA: Initial white count 23619, lymphocyte count is 17, neutrophil count of 8.8. Chemistry shows sodium of 141, potassium 4.1, BUN of 14, creatinine 0.67. Coags were normal 12.5 and INR 0.8. Urine normal. MICROBIOLOGY: Urine cultures are pending. IMAGING STUDIES: Wrist x-ray shows no acute displaced fractures. Pelvis CT shows acute mildly impacted subcapital right femoral neck fracture. Chest x-ray shows interval decrease in right pleural effusion and adjacent atelectasis, hyperinflated lungs with trace pleural fluid versus pleural fluid thickening. Cervical CT shows no gross abnormalities. No infection or neoplasms. Grossly patent canal foramina. Head CT shows no acute intracranial abnormalities. Blood bank, the patient is A-positive and has antibody positive too. ASSESSMENT: A 74-year-old female with: 1. Right hip fracture. Plan, the patient is n.p.o. and is scheduled for surgery with Dr. Shook today. 2. Diffuse osteoporosis. The patient will need osteoporosis treatment as an outpatient basis. 3. Chronic obstructive pulmonary disease. Continue on albuterol and Atrovent treatment. 4. History of anemia. We will go ahead and type and cross her blood, which is antibody positive. 5. Hypertension. We will continue antihypertensive as needed. 6. Hyperlipidemia. Continue on antihyperlipidemic agents as postoperative and for dementia and anxiety, continue on her anti anxiolytic medications and also on her dementia medicine. 7. Further recommendation per clinical course. We will continue to monitor the patient after post surgery and possible discharge depending on her functionality and also need for SNF. MD JIAN Leary/MODL /[id number]
--- NOTE | 2019-07-22 13:20 | NUR ---
Visit made by the Spiritual Care Department Pastoral Visitor, Frida Gandhi. PV provided pastoral presence, prayer, hospitality, and supportive listening. Pastoral Visitor informed pt/family of the scope of Manager Product Marketing Services and availability. DAVID CHARLES Physical Design Engineer Spiritual Care Department O: [phone] Pager: [phone] ([phone] calling from)
--- NOTE | 2019-07-22 16:57 | NUR ---
pt off unit for procedure md argueta spoke with pt and (POA) poa signed consent
--- NOTE | 2019-07-22 17:10 | NUR ---
ORTHOPEDIC CONSULTATION 74 year old household ambulator without assistive device presents to the ED after a mechanical fall in bathroom. Patient presently complains mainly of right hip pain with inability to ambulate. Patient has dementia and is a poor history, however and son at bedside to provide information. Patient denies numbness, paresthesias or loss of distal motor function. Pain localized mainly to right hip. PMdHx: COPD, WI, CAD, Dementia, HLD, Aspiration PSxHx: Abdominal Aorta Repair, Hernia Repair Allergies: Codeine, Hydrocodone SocHx: Neg EtOH, Drugs, Pos Tob in past MEDS: She takes at home are albuterol, Atrovent q.6 hours, alprazolam for anxiety 1 mg b.i.d., aspirin 81 mg, atorvastatin 10 mg p.o. at bedtime, cilostazol for PAD 100 mg b.i.d., Namenda 10 mg b.i.d., metoprolol 25 mg ER q.a.m. and multivitamin. FamHx: Non-contributory VS: T 98.8, HR 93, RR 18, BP 117/55, O2 91% Right Lower Leg: Shortened, and externally rotated No open lesions or sores Unable to straight leg raise, pain with log roll Motor: + EHL, FHL, TA, G/S Sensation grossly intact Pulses + DP, Post tib Compartments soft Negative calf tenderness Xrays & CT demonstrate right valgus impacted femoral neck fracure 74 year old F with right valgus impacted femoral neck fracture Plan for right hip closed reduction, percutaneous pinning Analgesics PRN DVT Prophylaxis - Hold chemoprophylaxis Bedrest NPO except meds IVF while NPO DO ANAM[facility]IA [facility].
[2019-07-22] MEDS ORDERED: SODIUM CHLORIDE 0.9% 100 ML ONE (17:27)
[2019-07-22] MEDS ORDERED: BACITRACIN 50,000 UNIT VIAL ONE (17:27)
[2019-07-22] MEDS ORDERED: SEVOFLURANE INHAL SOLN 250 ML PEN BTL ONE (17:43)
[2019-07-22] MEDS ORDERED: PROPOFOL IV EMULSION 10 MG/ML 20 ML VIAL ONE (17:43)
[2019-07-22] MEDS ORDERED: LIDOCAINE HCL 2% LOCAL INJ 5 ML SDV VIAL INJ ONE (17:43)
[2019-07-22] MEDS ORDERED: ROCURONIUM BROMIDE 10 MG/ML 5ML VIAL ONE (17:43)
[2019-07-22] MEDS ORDERED: BUPIVACAINE HCL 0.5% INJ 30 ML VIAL INJ ONE (17:54)
[2019-07-22] MEDS ORDERED: FENTANYL CITRATE/PF 100MCG/2 ML INJ ONE (17:56)
[2019-07-22] MEDS: CEFTRIAXONE SOD 1 GM/NS 50 ML 50 ML IV SCH (18:00)
--- NOTE | 2019-07-22 18:40 | NUR ---
Operative Note - Orthopedic Surgery PREOPERATIVE DIAGNOSES: Right Valgus Impacted Femoral Neck Fracture POSTOPERATIVE DIAGNOSES: Right Valgus Impacted Femoral Neck Fracture OPERATION PERFORMED: Closed Reduction, Percutaneous Pinning Right Hip SURGEON: Génesis Lopez DO ANESTHESIA: General. EBL: 20cc COMPLICATIONS: None IMPLANTS: Eladia Asnis 6.5 Cannulated Screw 20 mm Thread (80 mm x 2, 75 mm x1) DESCRIPTION OF OPERATION: The patient was taken to the operating room and placed under general anesthesia. The right lower extremity and right upper extremity had all bony prominences well padded and secured. SCD was placed on the left lower leg. Preoperative Ancef antibiotics were given. The patients right lower extremities were sterilely prepped and draped in the usual fashion. A time-out was performed to identify the correct extremity. The right hip was visualized under flouroscopy and the hip was adducted to improve the position of the fracture and to allow for pinning. Next and incision was made lateral to the greater trochanter. A guide pin was introduced through the inferior portion neck and head under flouroscopic guidance and deemed to be in adequate position. Two other guide pins were inser olive under similar fashion along the superoanterior and superoposterior portion o f the neck and head. The intraosseous length of the pin was measured and three Asnis III Partially Threaded Cannulated Screws were introduced into the neck and head. The anterosuperior screw was 6.5 x 75mm TL 20 mm, posterosuperior screw was 6.5 x 80 mm TL 20mm and 6.5 x 80 mm TL 20mm. The guide pins were removed and final imaging was taken and interpreted to be in adequate position. The incisions were thoroughly irrigated, and the fascia was closed with 0 vicryl, and the subcutaneous tissue was closed with 2-0 vicryl. 3-0 Monocryl were placed to close the skin and the skin was then cleaned. An Aquacel dressing was placed. The patient was transferred to the recovery room under stable condition.
--- NOTE | 2019-07-22 19:15 | NUR ---
Received the patient from [facility] after the procedure.allert.iv to right ac patent.iv fluid running.dressing @ the right hip is dry.dick is in place.family member at bed side.no pain voiced @ incision site.as per the report from [facility] do not administer antibiotics Rocephin.already administered ancef.bed alarm on.bed locked and in lowest position.phone and call light within reach.instructed to call for assistance as needed.provided snacks.keep monitor the pt.
[2019-07-22] MEDS: METOPROLOL SUCCINATE 25 MG TAB XL PO SCH (21:00)
[2019-07-22] MEDS: CEFAZOLIN SOD 1 GM/NS 50ML 50 ML IV SCH (21:26)
[2019-07-22] MEDS: ATORVASTATIN 10 MG TAB PO SCH (21:26)
[2019-07-22] MEDS: ALPRAZOLAM 1 MG TAB PEG SCH (21:26)
[2019-07-23] VITALS (8 sets, daily range): BP systolic 108–124; BP diastolic 51–58
[2019-07-23] MEDS: CEFAZOLIN SOD 1 GM/NS 50ML 50 ML IV SCH ×2 (05:47→14:30)
[2019-07-23 05:59] LABS: HEMATOCRIT 34.6 % (34.2-44.1); HEMOGLOBIN 11.1 g/dL (12.0-16.0)
--- NOTE | 2019-07-23 06:00 | NUR ---
Carbone d/c.due to void.patient tolerated well.iv is leaking.new iv started to left hand #22.uses incentive spirometer.stable condition.
--- NOTE | 2019-07-23 07:00 | NUR ---
Bed side shift report given to the oncoming RN.stable condition.
--- NOTE | 2019-07-23 08:38 | Progress Note ---
DATE: SUBJECTIVE: A 74-year-old female, status post fall. The patient had an open reduction and internal fixation with Dr. Shook yesterday. No complaints. Pain is maintained. No chest pain. No shortness of breath. The patient is eating and complains of no constipation, no rectal bleeding, and/or no hematochezia. MEDICATIONS: The patient is currently back on her medications, which include atorvastatin. She is on Lovenox, Namenda, metoprolol, morphine, Zofran as needed, and sodium chloride. OBJECTIVE: GENERAL: The patient is alert and oriented x3. The patient has short-term memory problems. VITAL SIGNS: Temperature is 98.5, pulse of 105, respirations of 18, blood pressure is 119/53, pulse oximetry of 92% on 3 L of oxygen. HEENT: Normocephalic, atraumatic. CVS: S1 and S2 normal. Regular rate and rhythm. ABDOMEN: She has no tenderness and no guarding. The patient has a PEG tube in place. MICROBIOLOGY: Urine cath yesterday showed E coli. The patient is currently on cefazolin, Ancef, which is sensitive to Klebsiella pneumonia. IMAGING STUDIES: Pelvic x-rays status post surgery shows left hip is intact and normally positioned, stable alignment subcapital fracture of the right femoral neck. ASSESSMENT: 1. Right femoral neck fracture status post open reduction and internal fixation. 2. Urinary tract infection. Continue on Ancef. 3. Hypertension. 4. Dementia. 5. History of chronic obstructive pulmonary disease. PLAN: Plan is to have physical therapy walker today and we will continue to monitor the patient. Cultures will be followed through and the patient can be discharged depending on progression and physical therapy. Discharge will be either to SNF and/or home depending on the patient's ability to walk. MD JIAN Leary/MODL /[id number]
[2019-07-23] MEDS: ONDANSETRON HCL INJ 2MG/ML 2ML 2 MG/ML VIAL IV PRN (08:53)
[2019-07-23] MEDS: MEMANTINE 10 MG TAB PO SCH ×2 (09:00→21:09)
[2019-07-23] MEDS: ALPRAZOLAM 1 MG TAB PO SCH (09:00)
--- NOTE | 2019-07-23 09:07 | NUR ---
PT HOME MEDIATION VERIFIED BY , EMAR NOTED AND CHANGED, PT REPOSITIONED AT THIS TIME, MEDICATED PER MD ORDER FOR NAUSEA, PT REPORTS SHE ATE MOST OF HER BREAKFAST, CALL LIGHT WITHIN REACH
[2019-07-23] MEDS: CILOSTAZOL 100 MG TAB PO SCH ×2 (10:15→21:09)
--- NOTE | 2019-07-23 10:26 | NUR ---
OOB WITH PHYSICAL THERAPY, AT SIDE
[2019-07-23] MEDS: SODIUM CHLORIDE 0.9% 1000ML 1,000 ML IV SCH (12:15)
--- NOTE | 2019-07-23 12:34 | NUR ---
IMM EXPLAINED TO PT AND , SIGNED BY AT PT REQUEST AND PLACED IN CHART COPY TO PT IN CARE TRANSITIONS FOLDER
[2019-07-23] MEDS: TRAMADOL HCL 50 MG TAB PO PRN (14:43)
--- NOTE | 2019-07-23 16:19 | NUR ---
Pt straight cath, due to unable to void; 700ml dark yellow urine noted with foul smell. specimen sent to lab.
[2019-07-23 16:46] LABS: BILIRUBIN,URINE NEGATIVE (NEGATIVE); CLARITY,URINE CLEAR (CLEAR); COLOR,URINE YELLOW (YELLOW); KETONES,URINE NEGATIVE (NEGATIVE); LEUKOCYTE ESTERASE ,URINE SMALL (NEGATIVE); NITRITE,URINE NEGATIVE (NEGATIVE); PROTEIN,URINE DIPSTICK NEGATIVE (NEGATIVE); URINE UROBILINOGEN 0.2 mg/dL (0.2 - 1)
[2019-07-23 16:59] LABS: WBC,URINE (MAN) 0-5 /HPF (0-5)
[2019-07-23] MEDS: CEFTRIAXONE SOD 1 GM/NS 50 ML 50 ML IV SCH (18:00)
[2019-07-23] MEDS: ENOXAPARIN SOD INJ 40 MG/0.4 ML SYR SC SCH (18:00)
--- NOTE | 2019-07-23 18:45 | NUR ---
Received bedside report from day shift RN. The patient is sitting up on the bed, not in distress. is at bedside. Bed height low, side rails up x2, wheels lock and call light within reach. Bed alarm on.
[2019-07-23] MEDS: ALPRAZOLAM 1 MG TAB PEG SCH (21:09)
[2019-07-23] MEDS: ATORVASTATIN 10 MG TAB PO SCH (21:09)
[2019-07-23] MEDS: METOPROLOL SUCCINATE 25 MG TAB XL PO SCH (21:10)
--- NOTE | 2019-07-23 22:36 | NUR ---
ORTHOPEDICS PROGRESS NOTE Patient seen & examined resting comfortably at bedside. Pain well controlled. Participated in PT today. VS: 99.7, HR 112, RR 18, BP 116/58, O2 Sat 90L Right Lower Leg Dressing clean, dry and intact Motor: + EHL, FHL, TA, G/S Sensation grossly intact Pulses + DP, Post bit Compartments soft Negative calf tenderness H/H 11.1/34.6 74 yo F s/p Right Hip CRPP POD#1 Analgesics DVT Prophylaxis PT WBAT Follow up am labs DO [facility]
[2019-07-24] VITALS (8 sets, daily range): BP systolic 98–114; BP diastolic 54–58
--- NOTE | 2019-07-24 00:58 | NUR ---
Patient did not void since the last straight catheter. Bladder scan showed 405 mL and straight catheter resulted 500 mL of urine. Patient tolerated well. Continue to monitor for voiding
[2019-07-24] MEDS: SODIUM CHLORIDE 0.9% 1000ML 1,000 ML IV SCH ×3 (01:35→20:38)
[2019-07-24 06:04] LABS: HEMATOCRIT 32.9 % (34.2-44.1); HEMOGLOBIN 10.5 g/dL (12.0-16.0)
--- NOTE | 2019-07-24 06:38 | NUR ---
Dr. Sanchez recommend the patient to go to SNF since the patient is unable to void and should continue with nursing care at the SNF until able to void on her own. Dr. Sanchez also ordered milk of magnesia 30 cc one time now.
[2019-07-24] MEDS ORDERED: MAGNESIUM HYDROXIDE 30 ML UDC PO NR (06:45)
[2019-07-24] MEDS: TRAMADOL HCL 50 MG TAB PO PRN (07:00)
--- NOTE | 2019-07-24 09:04 | Progress Note ---
DATE: SUBJECTIVE: The patient is a 74-year-old female, who came in with hip fracture. The patient is status post open reduction and internal fixation. The patient had symptoms of anuria. The patient was bladder scanned and straight cath has been done twice. The patient is currently complaining of pain, did some physical therapy yesterday, had walked up to the door and back with coaching. The patient is otherwise asymptomatic. No chest pains. No shortness of breath. No nausea, vomiting, or diarrhea. Positive for constipation. No rectal bleeding. Positive for anuria at this time. PHYSICAL EXAMINATION: GENERAL: On examination, the patient is alert and oriented x3. VITAL SIGNS: Temperature is 98.1. She has been remained afebrile. Pulse is 82, has gone up to 106, blood pressure is 108/54, pulse oximetry of 94% on 3 L of oxygen. HEENT: Normocephalic, atraumatic. Pupils are reactive to light and accommodation. CVS: S1, S2 normal. Regular rate and rhythm. LUNGS: Decreased air entry. ABDOMEN: Nontender. Positive for distention in the suprapubic area. EXTREMITIES: No clubbing, no cyanosis, no edema. The patient's surgical wound clean and dry. LABORATORY DATA: Today's H and H are 10.5 and 32.9. Chemistries; sodium 141, potassium 4.1. BUN and creatinine have been normal. Coags normal. Urine, so far negative. MICROBIOLOGY: Urine culture did grow Klebsiella, sensitive to Ancef. MEDICATIONS: She is on metoprolol 25 mg at nighttime, memantine 10 mg, cilostazol 100 mg, atorvastatin 10 mg, alprazolam 2 mg at nighttime, Lovenox 40 mg daily for DVT prophylaxis, Rocephin q.24 hours, and she has been given milk of magnesia for constipation. ASSESSMENT: 1. Hip fracture status post open reduction and internal fixation. 2. History of chronic obstructive pulmonary disease. Continue with albuterol and Atrovent treatments. 3. Urinary tract infection. Continue on Rocephin. 4. History of urinary retention. We will do a bladder scan again a.m. today and possible need of intermittent catheterization. At this time, the patient does not look like she can be taken care of home. A SNF consult will be done. Further recommendations per clinical course and she will need aggressive physical therapy. MD JIAN Leary/MODL /[id number]
[2019-07-24] MEDS: MEMANTINE 10 MG TAB PO SCH ×2 (09:54→20:39)
[2019-07-24] MEDS: CILOSTAZOL 100 MG TAB PO SCH ×2 (09:54→20:39)
--- NOTE | 2019-07-24 10:06 | NUR ---
ORTHOPEDIC PROGRESS NOTE Patient seen & examined resting comfortably at bedside with at side. No acute events overnight. Pain well controlled VS T 99.4, HR 88, RR 16, BP 109/58, O2 88% Right hip - dressing clean, dry and intact Motor: + EHL, FHL, TA, G/S Sensation grossly intact Pulses + DP, Post tib, Compartments soft, Negative calf tenderness H/H 10.5/32.9 74 yo F s/p Right Hip CRPP POD #2 Analgesics DVT Prophylaxis PT - WBAT Continue medical managements Orthopedically stable for discharge Keep dressings on until follow up in 2 weeks in office. Génesis Lopez, DO [facility]
--- NOTE | 2019-07-24 12:30 | NUR ---
VOIDING WITHOUT DIFFICULTY
--- NOTE | 2019-07-24 13:34 | NUR ---
SPOKE WITH ABOUT SNF ORDER, GAVE OPTIONS IN NETWORK THAT WERE CLOSE TO PT HOME, HE SIGNED CHOICE FOR [facility] AND FOR SECOND CHOICE HE WANTS [facility] [place], REFERRAL WALKED OVER TO [facility] DUE TO SIZE OF FAX, 101 PAGES. WILL GO LOOK AT BUILDING TODAY AND LET KNOW APPROVAL FROM [facility].
--- NOTE | 2019-07-24 13:46 | NUR ---
RTF COMPLETED WITH [facility], FILED COPY IN CHART, PUT ONE WITH PACKET AND FAXED ONE TO FACILITY [facility] FOR FIRST CHOICE.
--- NOTE | 2019-07-24 13:58 | NUR ---
SITTING IN BS CHAIR, CALL LIGHT WITHIN REACH
--- NOTE | 2019-07-24 15:27 | NUR ---
IS OK WITH [facility]
[2019-07-24] MEDS: ENOXAPARIN SOD INJ 40 MG/0.4 ML SYR SC SCH (17:28)
[2019-07-24] MEDS: CEFTRIAXONE SOD 1 GM/NS 50 ML 50 ML IV SCH (17:28)
[2019-07-24] MEDS ORDERED: MAGNESIUM HYDROXIDE 30 ML UDC PO ONE (18:30)
[2019-07-24] MEDS: ALPRAZOLAM 1 MG TAB PEG SCH (20:39)
[2019-07-24] MEDS: METOPROLOL SUCCINATE 25 MG TAB XL PO SCH (20:39)
[2019-07-24] MEDS: ATORVASTATIN 10 MG TAB PO SCH (20:39)
[2019-07-25] VITALS: BP 119/56
[2019-07-25 04:00] VITALS: BP 127/56
[2019-07-25] MEDS: TRAMADOL HCL 50 MG TAB PO PRN (04:34)
--- NOTE | 2019-07-25 07:10 | NUR ---
RECEIVED PATIENT RESTING IN BED NO SIGNS OF DISTRESS. BED LOW, WHEELS LOCKED, SIDE RAILS X2. CALL LIGHT IN REACH WILL CONTINUE TO MONITOR PATIENT.
[2019-07-25] MEDS ORDERED: MAGNESIUM HYDROXIDE 30 ML UDC PO ONE (07:15)
--- NOTE | 2019-07-25 07:36 | Progress Note ---
DATE: SUBJECTIVE: A 74-year-old female, who comes in with hip fracture, status post open reduction and internal fixation by Orthopedics. The patient is currently stable. Does complain of constipation. Two doses of milk of magnesia have been given, has not been successful. The patient has been able to avoid. Intermittent catheterization has been stopped at this point of time. Currently working with physical therapy, but no progress made. SNF ordered. MEDICATIONS: Acetaminophen, atorvastatin, Rocephin enoxaparin, memantine, Zofran as needed, also Xanax for anxiety and tramadol for pain control. OBJECTIVE: VITAL SIGNS: Temperature is 97.2, pulse of 103, respirations of 20, blood pressure is 127/56, and pulse oximeter 92% on 3 L of oxygen. HEENT: Normocephalic, atraumatic. CVS: S1 and S2 normal. Regular rate and rhythm. LUNGS: Decreased air entry. Positive for some upper respiratory transmitted sounds. EXTREMITIES: No clubbing, no cyanosis, no edema present. ABDOMEN: Nontender, nondistended. Bowel sounds are present. LABORATORY VALUES: The patient's hemoglobin and hematocrit are 10.5 and 32 from last 5th. Chemistries were normal. Microbiology, Klebsiella pneumoniae in urine culture. ASSESSMENT AND PLAN: 1. Hip fracture, status post open reduction and internal fixation. 2. Urinary tract infection. Continue on Rocephin. 3. Debility. Continue with physical therapy. 4. Need of group home facility. The patient will be transferred to SNF when bed is available. We will also give an extra dose of milk of magnesia for constipation. MD JIAN Leary/MODL /[id number]
[2019-07-25 07:56] VITALS: BP 106/53
[2019-07-25 08:32] VITALS: BP 106/53
[2019-07-25] MEDS: MEMANTINE 10 MG TAB PO SCH (08:46)
[2019-07-25] MEDS: CILOSTAZOL 100 MG TAB PO SCH (08:46)
--- NOTE | 2019-07-25 09:18 | NUR ---
SENT UPDATES FOR PT AND MD NOTES TO FACILITY
--- NOTE | 2019-07-25 10:05 | NUR ---
PATIENT A/O X3, EVEN RESPIRATIONS ON 2LNC. BOWEL SOUNDS ACTIVE, VOIDS IN DIAPER. PEG TUBE IN PLACE. PATIENT ABLE TO SWALLOW. LEFT HAND 22 GAUGE IV SL. RIGHT HIP DRESSING CLEAN DRY AND INTACT. NO PAIN AT THIS TIME. PATIENT NEEDS ASSISTANCE WITH AMBULATION. PT WORKING WITH PATIENT. FAMILY AT BEDSIDE. CALL LIGHT IN REACH WILL CONTINUE TO MONITOR PATIENT.
--- NOTE | 2019-07-25 11:24 | NUR ---
EDUCATED ABOUT IMM, SIGNED, FILED IN CHART, WITH COPY LEFT WITH FAMILY AT BEDSIDE.
[2019-07-25 12:22] VITALS: BP 114/54
--- NOTE | 2019-07-25 15:49 | NUR ---
[facility] FACILITY DISCHARGE INFORMATION PATIENT HAS BEEN ACCEPTED TO: NAME: [facility] ADDRESS: [id number] [facility] ACCEPTING MD: DR BOOTH ROOM: [id number] NURSE CALL REPORT TO: [phone] IMM SIGNED AND OBTAINED (if applicable): YES THE FOLLOWING DOCUMENTS MUST ACCOMPANY PATIENT FOR TRANSFER: COPIED CHART: CLINICALS AND PAS[facility]
[2019-07-25 16:36] VITALS: BP 125/58
--- NOTE | 2019-07-25 17:15 | NUR ---
REPORT CALLED TO DONN AT [facility].
[2019-07-25] MEDS: SODIUM CHLORIDE 0.9% 1000ML 1,000 ML IV SCH (17:35)
[2019-07-25] MEDS: ENOXAPARIN SOD INJ 40 MG/0.4 ML SYR SC SCH (17:37)
[2019-07-25] MEDS: CEFTRIAXONE SOD 1 GM/NS 50 ML 50 ML IV SCH (17:53)
--- NOTE | 2019-07-25 18:21 | NUR ---
ORTHOPEDIC PROGRESS NOTE Patient seen & examined resting in bed with at bedside. Patient did not participate in therapy as well as prior days as per . VS 98.7, HR 114, RR 20, BP 125/58, O2 90% Right Hip - Dressing clean, dry and intact Motor: + EHL, FHL, TA, G/S Sensation grossly intact Pulse + DP, Post tib Compartments soft Negative calf tenderness H/H 10.5/32.9 74 yo F s/p Right Hip CRPP POD #3 Analgesics DVT Prophylaxis PT - WBAT Orthopedically stable for discharge Plan for follow up in 2 weeks. Keep dressing clean, dry and intact Génesis Lopez, DO [facility].
--- NOTE | 2019-07-25 19:16 | NUR ---
PATIENT LEFT VIA STRETCHER WITH EMS. FOLLOWED WITH PERSONAL BELONGINGS. PATIENT STABLE, NO PAIN REPORTED, NO S&S OF DISTRESS. REPORT CALLED AT 1715 TO MARQUETTE AT [facility].
== END 2019-07-25 19:17 | DRG 481 ==
LOC: ER 16:25 → ERHOLD 20:34 → MED/SURG 20:38
PROVIDERS: ADMIT Family Medicine; ATTEND Family Medicine
PROC: 0QS634Z Reposition Right Upper Femur with Internal Fixation Device, Percutaneous Approach (ICD-10-PCS; principal; 2019-07-22 17:00)
DX: S72.011A Unspecified intracapsular fracture of right femur, initial encounter for closed fracture (principal); N30.01 Acute cystitis with hematuria; S50.01XA Contusion of right elbow, initial encounter; S60.211A Contusion of right wrist, initial encounter; S80.01XA Contusion of right knee, initial encounter; S90.31XA Contusion of right foot, initial encounter; W01.10XA Fall on same level from slipping, tripping and stumbling with subsequent striking against unspecified object, initial encounter; Y93.89 Activity, other specified; Y92.012 Bathroom of single-family (private) house as the place of occurrence of the external cause; S06.0X0A Concussion without loss of consciousness, initial encounter; Z99.81 Dependence on supplemental oxygen; G30.9 Alzheimer's disease, unspecified; F02.80 Dementia in other diseases classified elsewhere, unspecified severity, without behavioral disturbance, psychotic disturbance, mood disturbance, and anxiety; J44.9 Chronic obstructive pulmonary disease, unspecified; I25.2 Old myocardial infarction; I25.10 Atherosclerotic heart disease of native coronary artery without angina pectoris; Z88.5 Allergy status to narcotic agent; S50.311A Abrasion of right elbow, initial encounter; E78.5 Hyperlipidemia, unspecified; Z87.891 Personal history of nicotine dependence; M81.0 Age-related osteoporosis without current pathological fracture; D64.9 Anemia, unspecified; Z79.82 Long term (current) use of aspirin; K59.00 Constipation, unspecified; B96.1 Klebsiella pneumoniae [K. pneumoniae] as the cause of diseases classified elsewhere
CPT/HCPCS: 36415; 70450; 71045; 72125; 72170; 72192; 80048; 81001; 82948; 85014; 85018; 85025; 85610; 86850; 86870; 86880; 86900; 86905; 87086; 87186; 93005; 94640; 97139; 99001; 99284; C1713; C1769; J0690; J0696; J1650; J2001; J2270; J2405; J3010; J7030; J7050

== ENCOUNTER 2019-08-19 17:45 | Emergency (ER) | payer MEDICARE ==
[~2019-08-19] VITALS: Ht 167.6 cm; Wt 61.2 kg
--- NOTE | 2019-08-19 17:55 | NUR ---
WC TO BED ASST.BY RN. PT PLACED ON O2 3 LPM
--- NOTE | 2019-08-19 17:59 | NUR ---
CALLED AND SPOKE TO BODY ROLLING MACHINE TENDER TO NOTIFY OF VENOUS DOPPLER.
[2019-08-19 18:30] LABS: BASOPHILS % 0.5 % (0.0-1.0); EOSINOPHILS # (AUTO) 0.1 (0.0-0.4); HEMATOCRIT 40.4 % (34.2-44.1); LYMPHOCYTES # (AUTO) 2.6 (1.0-3.2); LYMPHOCYTES % 30.2 % (18.0-39.1); MEAN CORPUSCULAR HEMOGLOBIN 29.6 pg (28-32); MEAN CORPUSCULAR HGB CONC 32.2 g/dL (31-35); MONOCYTES # (AUTO) 0.9 (0.2-0.8); MONOCYTES % 10.5 % (4.4-11.3); NEUTROPHILS # (AUTO) 4.9 (2.1-6.9); NEUTROPHILS % 57.6 % (38.7-80.0); PLATELET COUNT 275 x10e3/uL (140-360); RED BLOOD COUNT 4.39 x10e6/uL (3.6-5.1); RED CELL DISTRIBUTION WIDTH 13.3 % (11.7-14.4)
[2019-08-19 18:34] LABS: INR 0.95; PARTIAL THROMBOPLASTIN TIME 26.9 seconds (23.8-35.5); PROTHROMBIN TIME 13.2 seconds (11.9-14.5)
[2019-08-19 18:43] LABS: ALBUMIN 3.4 g/dL (3.5-5.0); ALBUMIN/GLOBULIN RATIO 0.9 (0.8-2.0); ALKALINE PHOSPHATASE 90 IU/L (40-150); ANION GAP 12.9 mmol/L (8-16); BLOOD UREA NITROGEN 9 mg/dL (7-26); BUN/CREATININE RATIO 14 (6-25); CALCIUM 9.8 mg/dL (8.4-10.2); CARBON DIOXIDE 32 mmol/L (22-29); CHLORIDE 98 mmol/L (98-107); CREATINE KINASE 32 IU/L (29-168); CREATININE, SERUM 0.64 mg/dL (0.57-1.11); EST GLOMERULAR FILTRATION RATE > 60 ML/MIN (60-); GLUCOSE 82 mg/dL (74-118); MAGNESIUM 1.9 MG/DL (1.3-2.1); POTASSIUM 3.9 mmol/L (3.5-5.1); SODIUM 139 mmol/L (136-145)
[2019-08-19 18:45] LABS: ALANINE AMINOTRANSFERASE < 6 IU/L (0-55)
[2019-08-19 19:31] VITALS: BP 143/65
== END 2019-08-19 19:33 | disposition home or self-care (01) ==
LOC: ER 17:45
DX: R60.0 Localized edema (principal); I10 Essential (primary) hypertension; I25.10 Atherosclerotic heart disease of native coronary artery without angina pectoris; J44.9 Chronic obstructive pulmonary disease, unspecified; Z79.82 Long term (current) use of aspirin; Z88.5 Allergy status to narcotic agent; Z98.890 Other specified postprocedural states
CPT/HCPCS: 36415; 80053; 82550; 82553; 83735; 83880; 84484; 85025; 85610; 85730; 93005; 93970; 99284

== ENCOUNTER → 2019-08-28 | Outpatient (CLI) | payer MEDICARE ==
--- NOTE | 2019-08-28 14:21 | Diagnostic Imaging Report ---
Chest, 1 view, 08/28/2019. History: Respiratory failure. Comparison: 07/21/2019. Findings: The heart remains shifted towards the right. The pulmonary vasculature is within normal limits for a portable exam. Patchy opacities are again seen at the right lung base, unchanged. The left lung is relatively clear. Calcified bilateral breast implants are present. Old right rib fracture is noted. Impression: No acute cardiopulmonary abnormality. Signed by: Skyler Dhaliwal on 08/28/2019 2:18 PM
== END ==
LOC: RAD 12:46
PROVIDERS: ATTEND Internal Medicine Pulmonary Disease
DX: Z09 Encounter for follow-up examination after completed treatment for conditions other than malignant neoplasm (principal); J96.90 Respiratory failure, unspecified, unspecified whether with hypoxia or hypercapnia
CPT/HCPCS: 71046